=== PATIENT | male | born 1935 | race Caucasian/White ===

== ENCOUNTER 2022-03-03 19:21 | Emergency (ER) | payer OTHER ==
[2022-03-03] MEDS ORDERED: LIDOCAINE VISCOUS 2% SOLN 15 ML UDC ONE (21:10)
--- NOTE | 2022-03-03 21:29 | ER ---
Nurse's Notes [facility] Name: Hugo Medley Age: 86 yrs Sex: Male : 1935 Arrival Date: 03/03/2022 Time: 19:24 Bed 7 Private MD: Diagnosis: Encounter for fitting and adjustment of non-vascular catheter-replacement of suprapubic catheter Presentation: 03/03 20:11 Chief complaint: Patient states: States I cant void, states it has been going on since ll3 supper time, states pain is 10/10. Coronavirus screen: At this time, the client does not indicate any symptoms associated with coronavirus-19. Ebola Screen: No symptoms or risks identified at this time. Initial Sepsis Screen: Does the patient meet any 2 criteria? No. Patient's initial sepsis screen is negative. Does the patient have a suspected source of infection? No. Patient's initial sepsis screen is negative. Risk Assessment: Do you want to hurt yourself or someone else? Patient reports no desire to harm self or others. Onset of symptoms was March 03, 2022 at 18:00. 20:11 Method Of Arrival: Wheelchair ll3 20:11 Acuity: MAIK 3 ll3 Triage Assessment: 20:14 General: Appears uncomfortable, Behavior is calm, cooperative. Pain: Complains of pain ll3 in pelvis. Neuro: Level of Consciousness is awake, alert, obeys commands, Oriented to person, place, time, situation. : suprapubic catheter in place Reports inability to void. Derm: Skin is pink, warm \T\ dry. Historical: - Allergies: 20:14 PENICILLINS; ll3 20:14 Hydrocodone-Acetaminophen; ll3 - PMHx: 20:14 Diabetes mellitus; Hypercholesterolemia; Depressive disorder; Hypertensive disorder; ll3 GERD; Osteoporosis; Kidney disease; - Immunization history:: Client reports receiving the 2nd dose of the Covid vaccine, Flu vaccine is up to date. - Social history:: Smoking status: Patient denies any tobacco usage or history of. Screenin:42 Abuse screen: Denies threats or abuse. Denies injuries from another. Nutritional lp1 screening: No deficits noted. Tuberculosis screening: No symptoms or risk factors identified. Fall Risk None identified. Assessment: 20:30 General: Appears uncomfortable, Behavior is appropriate for age. Pain: Complains of lp1 pain in suprapubic area Pain currently is 7 out of 10 on a pain scale. Quality of pain is described as pressure, Pain began 1800. Neuro: Level of Consciousness is awake, alert, obeys commands, Oriented to person, place, time, situation. Cardiovascular: Patient's skin is warm and dry. Respiratory: Respiratory effort is even. GI: Abdomen is non-distended. : suprapubic catheter in place does not appear to be draining. EENT: No signs and/or symptoms were reported regarding the EENT system. Derm: Skin is intact, Skin is dry, Skin is normal. Musculoskeletal: No signs and/or symptoms reported regarding the musculoskeletal system. 20:45 Reassessment: Bladder scan 150ml; Provider notified. lp1 21:05 Reassessment: Provider notified unable to flush suprapubic catheter; occlusion lp1 continued. 21:41 Reassessment: New ayala bag attached after catheter insertion; Patient reports lp1 significant abdominal relief after insertion of catheter by Provider, urine actively draining. Vital Signs: 20:11 BP 143 / 94; Pulse 68; Resp 18; Temp 97.2(TE); Pulse Ox 99% on R/A; Weight 83.91 kg ll3 (R); Height 5 ft. 7 in. (170.18 cm) (R); Pain 10/10; 20:11 Body Mass Index 28.97 (83.91 kg, 170.18 cm) ll3 ED Course: 19:24 Patient arrived in ED. bp1 20:14 Triage completed. ll3 20:14 Arm band placed on right wrist. ll3 20:20 [facility] cp 20:20 Ned Harden MD is Attending Physician. cp 20:45 Patient has correct armband on for positive identification. lp1 21:30 Assisted YANN Hess with insertion of 16FR suprapubic catheter. lp1 21:41 Patient did not have IV access during this emergency room visit. lp1 Administered Medications: No medications were administered Output: 21:42 Urine: 200ml (Ayala); Total: 200ml. lp1 Outcome: 21:28 Discharge ordered by . cp 21:41 Discharged to home via wheelchair, with family. lp1 21:41 Condition: good 21:41 Discharge instructions given to patient, family, Instructed on discharge instructions, follow up and referral plans. Demonstrated understanding of instructions, follow-up care. 21:42 Patient left the ED. lp1 Signatures: Fozia Javier RN RN lp1 Rogerio Moss PA PA cp Paniauga, Brittany bp1 Loubet, Lynsea, RN RN ll3 Corrections: (The following items were deleted from the chart) 03/04 06:09 03/03 21:05 Reassessment: Provider notified unable to flush suprapubic catheter lp1 lp1 03/04 06:24 03/03 21:41 Reassessment: New ayala bag attached after catheter insertion lp1 lp1
--- NOTE | 2022-03-03 21:29 | EDPHYS ---
Physician Documentation [facility] Name: Hugo Medley Age: 86 yrs Sex: Male : 1935 Arrival Date: 03/03/2022 Time: 19:24 Bed 7 Private MD: ED Physician Ned Harden HPI: 03/03 20:27 This 86 yrs old Male presents to ER via Wheelchair with complaints of Urine Retention. cp 20:27 Onset: The symptoms/episode began/occurred today. cp 20:27 Patient with suprapubic catheter. Reports catheter not draining and now having lower cp abdomen pain. 20:27 Associated signs and symptoms: Pertinent negatives: constipation, diarrhea, fever, cp hematuria, vomiting. Historical: - Allergies: 20:14 PENICILLINS; ll3 20:14 Hydrocodone-Acetaminophen; ll3 - PMHx: 20:14 Diabetes mellitus; Hypercholesterolemia; Depressive disorder; Hypertensive disorder; ll3 GERD; Osteoporosis; Kidney disease; - Immunization history:: Client reports receiving the 2nd dose of the Covid vaccine, Flu vaccine is up to date. - Social history:: Smoking status: Patient denies any tobacco usage or history of. ROS: 20:30 Constitutional: Negative for body aches, chills, fever. cp 20:30 Respiratory: Negative for cough, shortness of breath, wheezing. 20:30 Abdomen/GI: Positive for abdominal pain. 20:30 : Positive for urine retention. 20:30 All other systems are negative. cp Exam: 20:33 Constitutional: The patient appears in no acute distress, alert, awake, cp non-diaphoretic, non-toxic, well developed, well nourished, uncomfortable. 20:33 Head/Face: Normocephalic, atraumatic. cp 20:33 Cardiovascular: Rate: normal. 20:33 Respiratory: the patient does not display signs of respiratory distress, Respirations: normal, no use of accessory muscles, no retractions. 20:33 Abdomen/GI: Inspection: suprapubic catheter in place, Bowel sounds: active, all quadrants, Palpation: soft, in all quadrants, moderate abdominal tenderness, in the suprapubic area, rebound tenderness, is not appreciated, voluntary guarding, is elicited in the suprapubic area. 20:33 Skin: area around suprapubic catheter appears with signs of cellulitis. 20:33 Neuro: Orientation: to person, place \T\ time. Mentation: is normal. Vital Signs: 20:11 BP 143 / 94; Pulse 68; Resp 18; Temp 97.2(TE); Pulse Ox 99% on R/A; Weight 83.91 kg ll3 (R); Height 5 ft. 7 in. (170.18 cm) (R); Pain 10/10; 20:11 Body Mass Index 28.97 (83.91 kg, 170.18 cm) ll3 Procedures: 21:25 replacement of suprapubic catheter using 16 indonesian performed. cp MDM: 20:27 Patient medically screened. cp 21:00 Differential diagnosis: nonspecific abdominal pain, UTI, urinary retention, Armenta cp catheter problem. 21:24 Data reviewed: vital signs, nurses notes, and as a result, I will discharge patient. cp 03/03 20:29 Order name: Bladder Scanner; Complete Time: 21:41 cp Administered Medications: No medications were administered Disposition: 03/04 01:21 Co-signature as Attending Physician, Ned Harden MD. [email or web address] Disposition Summary: 03/03/22 21:28 Discharge Ordered Location: Home cp Problem: new cp Symptoms: are resolved cp Condition: Stable cp Diagnosis - Encounter for fitting and adjustment of non-vascular catheter - replacement of cp suprapubic catheter Followup: cp - With: Emergency Department - When: As needed - Reason: Worsening of condition Discharge Instructions: - Discharge Summary Sheet cp - Suprapubic Catheter Replacement cp - Suprapubic Catheter Home Guide cp Forms: - Medication Reconciliation Form cp - Thank You Letter cp - Antibiotic Education cp - Prescription Opioid Use cp Signatures: Rogerio Moss PA PA cp Holmes, Maurice, MD MD [id number] Gifty Hoang RN RN ll3 Corrections: (The following items were deleted from the chart) 03/03 21:24 20:45 : Positive for urine retention, cp cp :24 20:45 Constitutional: Negative for body aches, chills, fever, cp cp :24 20:45 Respiratory: Negative for cough, shortness of breath, wheezing, cp cp :24 20:45 Abdomen/GI: Positive for abdominal pain, cp cp :24 20:45 All other systems are negative, cp cp 03/04 15:23 15:22 replacement of suprapubic catheter using 16 indonesian performed. cp cp
[2022-03-04 05:59] VITALS: BP 143/94; TEMP 97.2; O2SAT 99
== END 2022-03-03 21:42 | disposition home or self-care (01) ==
LOC: ER 19:21
PROC: 0T29X0Z Change Drainage Device in Ureter, External Approach (ICD-10-PCS; principal; 2022-03-03)
DX: Z46.82 Encounter for fitting and adjustment of non-vascular catheter (principal); R10.30 Lower abdominal pain, unspecified; E11.22 Type 2 diabetes mellitus with diabetic chronic kidney disease; N18.9 Chronic kidney disease, unspecified; I10 Essential (primary) hypertension; Z88.0 Allergy status to penicillin; Z88.5 Allergy status to narcotic agent
CPT/HCPCS: 99281

== ENCOUNTER 2022-04-15 19:46 | Emergency (ER) | payer OTHER ==
--- NOTE | 2022-04-15 21:53 | ER ---
Nurse's Notes [facility] Name: Hugo Medley Age: 86 yrs Sex: Male : 1935 Arrival Date: 04/15/2022 Time: 19:47 Bed 11 Private MD: Diagnosis: Other mechanical complication of urinary (indwelling) catheter;Mechanical complication of urinary (indwelling) catheter Presentation: 04/15 20:08 Chief complaint: Patient's son or daughter states: "He has a suprapubic catheter and it as6 was clogged a few weeks ago and we thinks its happened again". Coronavirus screen: At this time, the client does not indicate any symptoms associated with coronavirus-19. Ebola Screen: No symptoms or risks identified at this time. Initial Sepsis Screen: Does the patient meet any 2 criteria? No. Patient's initial sepsis screen is negative. Does the patient have a suspected source of infection? No. Patient's initial sepsis screen is negative. Risk Assessment: Do you want to hurt yourself or someone else? Patient reports no desire to harm self or others. Onset of symptoms was April 15, 2022 at 18:00. 20:08 Method Of Arrival: Wheelchair as6 20:08 Acuity: MAIK 3 as6 Triage Assessment: 20:12 General: Appears in no apparent distress. Behavior is calm, cooperative. Pain: as6 Complains of pain in abdomen Quality of pain is described as pressure. : suprapubic catheter in place. Historical: - Allergies: 20:11 Hydrocodone-Acetaminophen; as6 20:11 PENICILLINS; as6 - PMHx: 20:11 depressive disorder; diabetes mellitus; GERD; Hypercholesterolemia; Hypertensive as6 disorder; kidney disease; Osteoporosis; - Immunization history:: Adult Immunizations up to date. - Social history:: Smoking status: Patient denies any tobacco usage or history of. Screenin:45 Abuse screen: Denies threats or abuse. Nutritional screening: No deficits noted. jb4 Tuberculosis screening: No symptoms or risk factors identified. Fall Risk None identified. Assessment: 20:30 General: Appears in no apparent distress. uncomfortable, Behavior is calm, cooperative, jb4 appropriate for age. Pain: Complains of pain in suprapubic area Pain does not radiate. Pain currently is 6 out of 10 on a pain scale. Neuro: Level of Consciousness is awake, alert, obeys commands, Oriented to person, place, time, situation. Cardiovascular: Patient's skin is warm and dry. Respiratory: Airway is patent Respiratory effort is even, unlabored, Respiratory pattern is regular, symmetrical. GI: No signs and/or symptoms were reported involving the gastrointestinal system. : Armenta in place Not currently draining. EENT: No signs and/or symptoms were reported regarding the EENT system. Derm: Skin is intact, Skin is pink, warm \\T\\ dry. 21:45 Reassessment: Patient appears in no apparent distress at this time. Patient and/or jb4 family updated on plan of care and expected duration. Pain level reassessed. Patient is alert, oriented x 3, equal unlabored respirations, skin warm/dry/pink. Armenta irrigated, urine return noted. Pt had approximately 700ml output. Reports immediate relief, denies further pain. Vital Signs: 20:08 BP 171 / 75; Pulse 88; Resp 18 S; Temp 98.0(O); Pulse Ox 99% on R/A; Weight 86.18 kg as6 (R); Height 5 ft. 6 in. (167.64 cm) (R); Pain 6/10; 21:45 BP 171 / 63; Pulse 76; Resp 16; Pulse Ox 98% on R/A; jb4 20:08 Body Mass Index 30.67 (86.18 kg, 167.64 cm) as6 ED Course: 19:47 Patient arrived in ED. bp1 20:11 Triage completed. as6 20:12 Arm band placed on. as6 20:24 Kenneth Preciado MD is Attending Physician. kdr 21:07 Bubba Collazo, RN is Primary Nurse. jb4 21:45 Patient has correct armband on for positive identification. Bed in low position. Call jb4 light in reach. Side rails up X 1. Client placed on continuous cardiac and pulse oximetry monitoring. NIBP monitoring applied. 21:45 No provider procedures requiring assistance completed. Patient did not have IV access jb4 during this emergency room visit. Administered Medications: No medications were administered Medication: 21:45 VIS not applicable for this client. jb4 Outcome: 21:53 Discharge ordered by . kdr 22:00 Discharged to home via wheelchair, with family. jb4 22:00 Condition: stable 22:00 Discharge instructions given to patient, family, Instructed on discharge instructions, follow up and referral plans. Demonstrated understanding of instructions, follow-up care. 22:06 Patient left the ED. jb4 Signatures: Kenneth Preciado MD MD kdr Bryson, James RN RN jb4 Dione Quiroga Ashby, RN RN as6
--- NOTE | 2022-04-15 21:53 | EDPHYS ---
Physician Documentation [facility] Name: Hugo Medley Age: 86 yrs Sex: Male : 1935 Arrival Date: 04/15/2022 Time: 19:47 Bed 11 Private MD: ED Physician Kenneth Preciado HPI: 04/15 21:54 This 86 yrs old Male presents to ER via Wheelchair with complaints of Problem With kdr Urinary Catheter, - Clogged. 21:54 The patient presents with a Ayala catheter problem, is not draining. Onset: The kdr symptoms/episode began/occurred today. Modifying factors: The symptoms are alleviated by nothing, the symptoms are aggravated by nothing. Associated signs and symptoms: Pertinent positives: abdominal pain, Pertinent negatives: constipation, diarrhea, dysuria, fever, hematuria, nausea, vomiting. Severity of symptoms: At their worst the symptoms were mild, in the emergency department the symptoms are unchanged. The patient has not experienced similar symptoms in the past. The patient has not recently seen a physician. Historical: - Allergies: 20:11 Hydrocodone-Acetaminophen; as6 20:11 PENICILLINS; as6 - PMHx: 20:11 depressive disorder; diabetes mellitus; GERD; Hypercholesterolemia; Hypertensive as6 disorder; kidney disease; Osteoporosis; - Immunization history:: Adult Immunizations up to date. - Social history:: Smoking status: Patient denies any tobacco usage or history of. ROS: 21:54 Constitutional: Negative for fever, chills, and weight loss, Eyes: Negative for injury, kdr pain, redness, and discharge, ENT: Negative for injury, pain, and discharge, Neck: Negative for injury, pain, and swelling, Cardiovascular: Negative for chest pain, palpitations, and edema, Respiratory: Negative for shortness of breath, cough, wheezing, and pleuritic chest pain, Back: Negative for injury and pain, MS/Extremity: Negative for injury and deformity, Skin: Negative for injury, rash, and discoloration, Neuro: Negative for headache, weakness, numbness, tingling, and seizure activity. Psych: Negative for depression, anxiety, suicide ideation, homicidal ideation, and hallucinations, Allergy/Immunology: Negative for hives, rash, and allergies, Endocrine: Negative for neck swelling, polydipsia, polyuria, polyphagia, and marked weight changes, Hematologic/Lymphatic: Negative for swollen nodes, abnormal bleeding, and unusual bruising. 21:54 Abdomen/GI: Positive for Fullness in lower abdomen. 21:54 : Positive for Ayala not draining. Exam: 21:54 Constitutional: This is a well developed, well nourished patient who is awake, alert, kdr and in no acute distress. Head/Face: Normocephalic, atraumatic. Abdomen/GI: Soft, non-tender, with normal bowel sounds. No distension or tympany. No guarding or rebound. No evidence of tenderness throughout. Skin: Warm, dry with normal turgor. Normal color with no rashes, no lesions, and no evidence of cellulitis. 21:54 : Indwelling suprapubic cath in place but not draining. Vital Signs: 20:08 BP 171 / 75; Pulse 88; Resp 18 S; Temp 98.0(O); Pulse Ox 99% on R/A; Weight 86.18 kg as6 (R); Height 5 ft. 6 in. (167.64 cm) (R); Pain 6/10; 21:45 BP 171 / 63; Pulse 76; Resp 16; Pulse Ox 98% on R/A; jb4 20:08 Body Mass Index 30.67 (86.18 kg, 167.64 cm) as6 MDM: 21:53 Patient medically screened. kdr 21:54 Data reviewed: vital signs, nurses notes. Counseling: I had a detailed discussion with kdr the patient and/or guardian regarding: the historical points, exam findings, and any diagnostic results supporting the discharge/admit diagnosis, the need for outpatient follow up. ED course: With the nurse evaluated and irrigated the Ayala, it began to drain and the patient had instant relief. He was happy with the care provided the plan for discharge and follow-up. No further intervention was needed.. 04/15 21:07 [facility]: Irrigate ayala. If unable to irrigate and get flow then kdr replace; Complete Time: 21:48 Administered Medications: No medications were administered Disposition Summary: 04/15/22 21:53 Discharge Ordered Location: Home kdr Problem: new kdr Symptoms: have improved kdr Condition: Stable kdr Diagnosis - Other mechanical complication of urinary (indwelling) catheter kdr - Mechanical complication of urinary (indwelling) catheter kdr Followup: kdr - With: Private Physician - When: 2 - 3 days - Reason: If symptoms return, Further diagnostic work-up, Recheck today's complaints, Continuance of care, Re-evaluation by your physician Discharge Instructions: - Discharge Summary Sheet kdr - Indwelling Urinary Catheter Care, Adult, [id number] kdr Forms: - Medication Reconciliation Form kdr - Thank You Letter kdr Signatures: Kenneth Preciado MD MD kdr Lokesh Walters RN RN as6
[2022-04-15 22:37] VITALS: TEMP 98
[2022-04-15 22:38] VITALS: BP 171/63; O2SAT 98
== END 2022-04-15 22:06 | disposition home or self-care (01) ==
LOC: ER 19:46
DX: T83.098A Other mechanical complication of other urinary catheter, initial encounter (principal)
CPT/HCPCS: 99281

== ENCOUNTER 2022-06-30 05:44 | Day surgery (SDC) | payer OTHER ==
[2022-06-30 06:24] LABS: Absolute Lymphocytes (CBC) 1.4 K/uL (0.7-4.9); Hematocrit 33.3 % (39.6-49.0); Lymphocytes % 28.2 % (15.3-44.8); MCV 89.2 fL (80-100); MPV 7.7 fL (7.6-11.3); RBC Red Blood Cell Count 3.73 M/uL (4.33-5.43)
[2022-06-30 06:39] LABS: SARS-CoV-2 Antigen Rapid Res Negative (Negative)
[2022-06-30] MEDS ORDERED: CEFAZOLIN 2 GM IN 0.9% NACL 2 GM/100 ML BAG ONE (06:45)
[2022-06-30] MEDS: NA CHLORIDE 0.9% 1,000 ML ONE (06:45)
[2022-06-30] MEDS ORDERED: dexAMETHasone 10 MG/ML VIAL ONE (06:59)
[2022-06-30] MEDS ORDERED: propofoL 200 MG/20 ML VIAL IV ONE (06:59)
[2022-06-30] MEDS ORDERED: ROCURONIUM 50 MG/5 ML VIAL IV ONE (06:59)
[2022-06-30] MEDS ORDERED: FENTANYL CITR 100 MCG/2 ML ONE ×2 (06:59→08:52)
[2022-06-30] MEDS ORDERED: LIDOCAINE 2% MPF 5 ML VIAL ONE (06:59)
[2022-06-30] MEDS ORDERED: ACETAMINOPHEN 500 MG TAB ONE (07:17)
[2022-06-30] MEDS ORDERED: THROMBIN 5000 UNITS/VIAL TOP ONE (07:19)
[2022-06-30] MEDS ORDERED: NS 0.9% VIAL 20 ML ONE (07:33)
[2022-06-30] MEDS ORDERED: KETAMINE HCL 500 MG/5 ML VIAL ONE (07:33)
[2022-06-30] MEDS ORDERED: EPHEDRINE SULF 50 MG/ML VIAL ONE (08:25)
[2022-06-30] MEDS ORDERED: Phenylephrine HCl 10 MG/ML 1 ML VIAL ONE (08:57)
[2022-06-30] MEDS ORDERED: NA CHLORIDE 0.9% 1,000 ML ONE (09:53)
[2022-06-30] MEDS ORDERED: ONDANSETRON 4 MG/2 ML VIAL IV PRN (10:12)
[2022-06-30] MEDS ORDERED: HYDROCODONE/APAP 10/325 TAB PO PRN ×2 (10:18)
[2022-06-30] MEDS ORDERED: MORPHINE 4 MG/ML SYR IV PRN (10:19)
[2022-06-30 11:31] VITALS: O2SAT 98
[2022-06-30 11:58] VITALS: BMI 31.3
--- NOTE | 2022-06-30 12:04 | RAD REPORT ---
EXAM DESCRIPTION: RAD - Fluoroscopy <1 Hour - 06/30/2022 11:57 am FINDINGS: There were 3 portable C-arm views submitted during fluoroscopic assisted lumbar surgical p rocedure. No suspicious or unexpected finding. Fluoro time was less than 0.1 minutes. Cumulative dose was 1.83 mGy.
--- NOTE | 2022-06-30 13:43 | EKG ---
Test Date: 2022-06-30 Test Time: 06:29:01 Maintenance And Engineering Manager: [place] MEASUREMENT RESULTS: Intervals: Rate: 67 TX: 242 QRSD: 114 QT: 450 QTc: 475 [place]: P: 32 TX: 242 QRS: 21 T: 62 INTERPRETIVE STATEMENTS: Sinus rhythm with 1st degree AV block Otherwise normal ECG No previous ECG available for comparison Electronically Signed On 06-30-22 13:42:41 CDT by Heber Miller
[2022-06-30] MEDS: GABAPENTIN 300 MG CAP PO SCH ×2 (14:13→20:34)
[2022-06-30] MEDS: CEFAZOLIN 1 GM in NA CHLORIDE 0.9% 50 ML IVPB SCH (16:19)
[2022-06-30] MEDS ORDERED: GLUCAGON 1 MG/VIAL IM PRN (16:23)
[2022-06-30] MEDS ORDERED: D10W 250 ML BAG IV PRN (16:28)
[2022-06-30] MEDS: INSULIN -REGULAR HUMAN 50 UNIT/0.5 ML ML SQ SCH ×2 (16:48→20:36)
[2022-06-30] MEDS: DOCUSATE NA 100 MG CAP PO SCH (20:34)
[2022-06-30] MEDS: METHENAMINE HIPPURATE PO SCH (20:36)
[2022-06-30] MEDS ORDERED: ATORVASTATIN 20 MG TAB PO SCH (21:00)
[2022-06-30] MEDS ORDERED: LOPERAMIDE HCL 2 MG CAPSULE PO PRN (22:24)
--- NOTE | 2022-06-30 22:25 | P.HP ---
Certification for Inpatient Patient admitted to: Observation With expected LOS: <2 Midnights Practitioner: I am a practitioner with admitting privileges, knowledge of patient current condition, hospital course, and medical plan of care. Services: Services provided to patient in accordance with Admission requirements found in Title 42 Section 412.3 of the Code of Federal Regulations Patient History Date of Service: 06/30/22 Reason for admission: s/p L2-L3 decompression History of Present Illness: 86yo M, PMH: NIDDM2, GERD, HTN, CKD (unknown stage), chronic diarrhea, urinary retention s/p suprapubic catheter Patient with lumbar compression leading to significant pain not allowing him to walk much. He underwent L2-L3 decompression with Dr. Walden today, without any complications. Patient feels well, ambulated with PT already, and his excited he was able to walk several feet and didn't hurt him to walk at all. He feels well, denies chest pain, no SOB, no abdominal pain, no new numbness/tingling. Reports several year history of fast transit stooling. Shortly after he eats he has to have a bowel movement. He has reportedly seen a physician regarding this in the past. He has treated himself with intermittent imodium as needed. Labs notable for elevated Cr, unknown baseline, mild anemia. Allergies Penicillins Allergy (Verified 06/30/22 10:56) Hives Home Medications: Alendronate Sodium 1 tab PO 1X 06/30/22 Amino AC/Whey Prot Conc, Isol [Whey Protein Powder] 1 packet PO DAILY 06/30/22 Atorvastatin Calcium [Lipitor*] 1 tab PO DAILY 06/30/22 Citalopram [Celexa*] 1 tab PO DAILY 06/30/22 Diphenoxylate HCl/Atropine [Diphenoxylate-Atrop 2.5-0.025] 2 tab PO BID 06/30/22 Gabapentin 1 tab PO TID 06/30/22 Methenamine Hippurate 1 tab PO BID 06/30/22 Metoprolol Succinate [Toprol Xl*] 1 tab PO DAILY 06/30/22 Omeprazole 1 tab PO DAILY 06/30/22 Ondansetron [Zofran (Odt)*] 1 tab PO QID PRN 06/30/22 Tramadol HCl [Ultram] 1 tab PO Q4HR PRN 06/30/22 Zinc Oxide [Zinc Oxide 20%*] 1 tube TOP DAILY 06/30/22 - Past Medical/Surgical History Has patient received pneumonia vaccine in the past: Yes -: NIDDM2 -: HTN -: GERD -: chronic diarrhea -: urinary retention, s/p suprapubic catheter -: suprapubic catheter -: knee surgery - Family History Family History: Reviewed- Non-Contributory - Social History Smoking Status: Never smoker Alcohol use: No CD- Drugs: No Caffeine use: Yes Place of Residence: Home (assisted living) Review of Systems 10-point ROS is otherwise unremarkable Physical Examination - Vital Signs Temperature: 97.3 F Blood Pressure: 117/62 Pulse: 100 Respirations: 18 Pulse Ox (%): 97 - Physical Exam General: Alert, In no apparent distress, Oriented x3 HEENT: EOMI, Sclerae nonicteric Respiratory: Clear to auscultation bilaterally, Normal air movement Cardiovascular: No edema, Regular rate/rhythm Capillary refill: <2 Seconds Gastrointestinal: Soft and benign, Non-distended, No tenderness Musculoskeletal: No contractures, No erythema Integumentary: No rashes, No significant lesion Neurological: Normal speech, Normal strength at 5/5 x4 extr, Normal affect Urinary: Suprapubic catheter - Studies Laboratory Data (last 24 hrs) 06/30/22 06:14: Sodium 141, Potassium 4.0, BUN 30 H, Creatinine 1.40 H, Glucose 133 H 06/30/22 06:14: WBC 4.8, Hgb 11.4 L, Hct 33.3 L, Plt Count 195 Assessment and Plan - Advance Directives Does patient have a Living Will: No Does patient have a Durable POA for Healthcare: No Physician Review Additional Text: Problem List lumbar compression s/p L2-L3 decompression NIDDM2 GERD HTN CKD (unknown stage) chronic diarrhea urinary retention s/p suprapubic catheter resume home meds pain meds as needed PT consulted patient ambulated in hallway, without pain patient and son prefer to go back to [facility] with home health/PT/OT tolerating PO accucheks, insulin sliding scale suprapubic cath is chronic Code: full Dispo: back to [facility], home health/PT/OT - social science professor consulted Time Spent Managing Pts Care (In Minutes): 65
[2022-07-01] MEDS: CEFAZOLIN 1 GM in NA CHLORIDE 0.9% 50 ML IVPB SCH (00:45)
[2022-07-01 03:53] LABS: Hematocrit 29.2 % (39.6-49.0); MCV 88.3 fL (80-100); RBC Red Blood Cell Count 3.31 M/uL (4.33-5.43)
[2022-07-01 04:05] LABS: Magnesium 2.3 mg/dL (1.8-2.4); Potassium 4.1 mmol/L (3.5-5.1)
[2022-07-01] MEDS ORDERED: PANTOPRAZOLE 40MG TABLET PO SCH (06:30)
[2022-07-01] MEDS: INSULIN -REGULAR HUMAN 50 UNIT/0.5 ML ML SQ SCH ×2 (07:30→11:30)
[2022-07-01 07:54] VITALS: BP 104/53; TEMP 97.7
[2022-07-01] MEDS: METHENAMINE HIPPURATE PO SCH (09:00)
[2022-07-01] MEDS ORDERED: CITALOPRAM 10 MG TABLET PO SCH (09:00)
[2022-07-01] MEDS ORDERED: METOPROLOL XL 50 MG TAB PO SCH (09:00)
[2022-07-01] MEDS: DOCUSATE NA 100 MG CAP PO SCH (09:46)
[2022-07-01] MEDS: GABAPENTIN 300 MG CAP PO SCH (09:46)
--- NOTE | 2022-07-01 10:59 | P.DS ---
Discharge Date: 07/01/22 Disposition: IN HOME/HOME HEALTH CARE Discharge Condition: FAIR Reason for Admission: s/p L2-L3 decompression Brief History of Present Illness: 86yo M, PMH: NIDDM2, GERD, HTN, CKD (unknown stage), chronic diarrhea, urinary retention s/p suprapubic catheter Patient with lumbar compression leading to significant pain not allowing him to walk much. He underwent L2-L3 decompression with Dr. Walden today, without any complications. Patient feels well, ambulated with PT already, and his excited he was able to walk several feet and didn't hurt him to walk at all. He feels well, denies chest pain, no SOB, no abdominal pain, no new numbness/tingling. Reports several year history of fast transit stooling. Shortly after he eats he has to have a bowel movement. He has reportedly seen a physician regarding this in the past. He has treated himself with intermittent imodium as needed. Labs notable for elevated Cr, unknown baseline, mild anemia. Hospital Course: Diagnosis lumbar compression s/p L2-L3 decompression NIDDM2 GERD HTN CKD (unknown stage) chronic diarrhea urinary retention s/p suprapubic catheter Patient admitted to the medical floor for monitoring. resumed home meds pain meds as needed Patient seen by PT. He ambulated in hallway, without pain patient and son prefer to go back to [facility] with home health/PT/OT Patient is eating well. Patient with poor functional status at baseline and uses wheelchair frequently. PT recommend using a walker only during PT. Patient has a chronic suprapubic cath. Clinically stable for discharge. He is prescribed low-dose Lasix for lower extremity edema according to his request. Vital Signs/Physical Exam: Temp Pulse Resp BP Pulse Ox 97.7 F 90 18 104/53 L 97 07/01/22 07:54 07/01/22 09:46 07/01/22 07:54 07/01/22 09:46 07/01/22 07:54 General: Alert, In no apparent distress, Oriented x3 HEENT: Mucous membr. moist/pink Neck: Supple, JVD not distended Respiratory: Clear to auscultation bilaterally, Normal air movement Cardiovascular: Regular rate/rhythm, Normal S1 S2, Edema (1+ bilateral pedal edema) Gastrointestinal: Normal bowel sounds, Soft and benign, Non-distended, No tenderness Musculoskeletal: No tenderness Integumentary: No rashes Neurological: Other (No focal motor deficit) Laboratory Data at Discharge: WBC 9.2 K/uL (4.3-10.9) D 07/01/22 03:21 Hgb 10.1 g/dL (13.6-17.9) L 07/01/22 03:21 Hct 29.2 % (39.6-49.0) L 07/01/22 03:21 Plt Count 188 K/uL (152-406) 07/01/22 03:21 Sodium 139 mmol/L (136-145) 07/01/22 03:21 Potassium 4.1 mmol/L (3.5-5.1) 07/01/22 03:21 BUN 34 mg/dL (7-18) H 07/01/22 03:21 Creatinine 1.45 mg/dL (0.55-1.3) H 07/01/22 03:21 Glucose 147 mg/dL (74-106) H 07/01/22 03:21 Magnesium 2.3 mg/dL (1.8-2.4) 07/01/22 03:21 Home Medications: Alendronate Sodium 1 tab PO 1X 06/30/22 Amino AC/Whey Prot Conc, Isol [Whey Protein Powder] 1 packet PO DAILY 06/30/22 Atorvastatin Calcium [Lipitor*] 1 tab PO DAILY 06/30/22 Citalopram [Celexa*] 1 tab PO DAILY 06/30/22 Diphenoxylate HCl/Atropine [Diphenoxylate-Atrop 2.5-0.025] 2 tab PO BID 06/30/22 Gabapentin 1 tab PO TID 06/30/22 Methenamine Hippurate 1 tab PO BID 06/30/22 Metoprolol Succinate [Toprol Xl*] 1 tab PO DAILY 06/30/22 Omeprazole 1 tab PO DAILY 06/30/22 Ondansetron [Zofran (Odt)*] 1 tab PO QID PRN 06/30/22 Zinc Oxide [Zinc Oxide 20%*] 1 tube TOP DAILY 06/30/22 Docusate [Colace Cap*] 100 mg PO BID #60 cap 07/01/22 Furosemide [Lasix] 20 mg PO DAILY #30 tab 07/01/22 Hydrocodone 10/APAP 325 [Mcbrides 10/325*] 1 tab PO Q4H PRN #15 tab 07/01/22 New Medications: Docusate [Colace Cap*] 100 mg PO BID #60 cap Furosemide [Lasix] 20 mg PO DAILY #30 tab Hydrocodone 10/APAP 325 [Mcbrides 10/325*] 1 tab PO Q4H PRN #15 tab PRN Reason: Pain Scale 5-7 (Moderate) Diet: AHA Activity: Fall precautions Followup: Kendall Walden MD [ACTIVE - CAN ADMIT] - Time spent managing pt's care (in minutes): 33
== END 2022-07-01 12:58 | disposition home health service (06) ==
LOC: PRE 05:44 → SUATTDRO 05:44 → 4TH 11:35 → OR 07-01 12:58
PROVIDERS: ATTEND Internal Medicine
PROC: 01NB0ZZ Release Lumbar Nerve, Open Approach (ICD-10-PCS; principal; 2022-06-30 07:30)
DX: M43.16 Spondylolisthesis, lumbar region (principal); E11.9 Type 2 diabetes mellitus without complications; I10 Essential (primary) hypertension; N18.9 Chronic kidney disease, unspecified; K52.9 Noninfective gastroenteritis and colitis, unspecified; R33.9 Retention of urine, unspecified; Z88.0 Allergy status to penicillin; Z20.822 Contact with and (suspected) exposure to COVID-19
CPT/HCPCS: 63047; 63048; 93005; 85025; 80048 ×2; 36415 ×2; 83735; 82947 ×5; 85027; 97110; 97116 ×2; 97161; 97530 ×3; 97542 ×2; 87811; 69990; J2704; J2370; J1815; J3010 ×2; J1100; J0690 ×3; J7030 ×2; 76000; A4216; J2001

== ENCOUNTER 2022-08-06 11:32 | Emergency (ER) | payer OTHER ==
[2022-08-06] MEDS ORDERED: NA CHLORIDE 0.9% 1,000 ML ONE (12:09)
[2022-08-06 12:14] LABS: Absolute Lymphocytes (CBC) 0.6 K/uL (0.7-4.9); Hematocrit 31.5 % (39.6-49.0); MCV 89.5 fL (80-100); MPV 7.8 fL (7.6-11.3); RBC Red Blood Cell Count 3.51 M/uL (4.33-5.43)
[2022-08-06 12:29] LABS: Potassium 3.9 mmol/L (3.5-5.1)
[2022-08-06 12:40] LABS: Blood Morphology Comment NOT SEEN (NOT SEEN); Platelet Estimate ADEQ
--- NOTE | 2022-08-06 12:48 | RAD REPORT ---
EXAM DESCRIPTION: RAD - Chest Single View - 08/06/2022 12:37 pm CLINICAL HISTORY: COVID COMPARISON: Fluoroscopy <1 Hour dated 06/30/2022 FINDINGS: Lines: None. Lungs: No evidence of edema or pneumonia. Pleural: No significant pleural effusions or pneumothorax. Cardiac: Cardiomegaly. Mediastinum: Widened mediastinum that may be secondary to underlying aortic aneurysm or ectasia. This may also be accentuated from the patient's rotation. . Bones: No acute fractures. Other: None IMPRESSION: No acute cardiopulmonary disease. Possible aortic aneurysm.
[2022-08-06] MEDS ORDERED: BEBTELOVIMAB 175 MG/2 ML VIAL IV ONE (14:38)
--- NOTE | 2022-08-06 15:08 | ER ---
Nurse's Notes [facility] Name: Hugo Medley Age: 87 yrs Sex: Male : 1935 Arrival Date: 08/06/2022 Time: 11:36 Bed 24 Private MD: Diagnosis: SARS-associated coronavirus as the cause of diseases classified elsewhere;Diarrhea, unspecified;Dehydration Presentation: 08/06 11:37 Chief complaint: EMS states: Pt tested positive for covid yesterday at [facility], ph c/o generalized weakness, low grade fever 99.1, other VSS. Coronavirus screen: Vaccine status: Patient reports receiving the 2nd dose of the covid vaccine. Ebola Screen: No symptoms or risks identified at this time. Initial Sepsis Screen: Does the patient meet any 2 criteria? No. Patient's initial sepsis screen is negative. Does the patient have a suspected source of infection? No. Patient's initial sepsis screen is negative. Risk Assessment: Do you want to hurt yourself or someone else? Patient reports no desire to harm self or others. Onset of symptoms was August 06, 2022. 11:37 Method Of Arrival: EMS: [facility] ph 11:37 Acuity: MAIK 3 ph Triage Assessment: 11:40 General: Appears in no apparent distress. Behavior is calm, cooperative, appropriate ph for age. Pain: Denies pain. Neuro: Level of Consciousness is awake, alert, obeys commands, Oriented to person, place, time, situation, Reports weakness in legs. Cardiovascular: Capillary refill < 3 seconds in bilateral fingers Patient's skin is warm and dry. Respiratory: Airway is patent Respiratory effort is even, unlabored, Denies cough, shortness of breath. GI: Reports diarrhea, Patient currently denies abdominal pain, nausea, vomiting. Derm: Skin is pink, warm \T\ dry. Musculoskeletal: Circulation, motion, and sensation intact. Range of motion: intact in all extremities. Historical: - Allergies: 11:40 Hydrocodone-Acetaminophen; ph 11:40 PENICILLINS; ph - PMHx: 11:40 depressive disorder; diabetes mellitus; GERD; Hypertensive disorder; ph Hypercholesterolemia; kidney disease; Osteoporosis; - Immunization history:: Adult Immunizations up to date. - Social history:: Smoking status: Patient denies any tobacco usage or history of. - Family history:: not pertinent. Screenin:42 Abuse screen: Denies threats or abuse. Denies injuries from another. Nutritional ph screening: No deficits noted. Tuberculosis screening: No symptoms or risk factors identified. Fall Risk None identified. Assessment: 12:07 General: SEE TRIAGE ASSESSMENT. : suprapubic catheter in place to gravity drainage. ph 14:31 General: Verbal consent obtained for administration of Bebtelovimab. Pt states kb3 understanding of medication use and side effects.. 15:35 General: Spoke with Madalyn at [facility], gave report on pt for transport home. Per kb3 Madalyn, pt's son Vadim was notified of pt's need for transport back to [facility]. Pt's son is unavailable because he also has covid. Called [facility] back and spoke with Kemal regarding pt's son unable to transport pt home. He reported that he was unaware of what the protocol was to transport a covid positive pt home and would have to make some calls and call us back with arrangements. Camilla notified of pending transport arrangements. 16:20 General: Spoke with Kemal at [facility]. He is going to contact pt's son to 3 transport him back. Awaiting return call. 16:30 General: Received call from Kemal at [facility]. Pt's son will be at ER in a few kb3 minutes to retrieve pt and transport back to [facility].. 16:40 General: Assisted pt to WC and to POV where son was waiting. Pt's son will transport pt kb3 back to [facility]. Paperwork for discharge provided. Vital Signs: 11:37 BP 111 / 50; Pulse 81; Resp 18; Temp 99.0; Pulse Ox 96% on R/A; Weight 81.65 kg; Height ph 5 ft. 7 in. (170.18 cm); Pain 0/10; 12:30 BP 118 / 45; Pulse 69; Resp 20; Pulse Ox 95% ; ph 13:15 BP 114 / 47; Pulse 67; Resp 20; Pulse Ox 95% 2 lpm ; kb3 14:30 BP 122 / 49; Pulse 70; Resp 18; Pulse Ox 100% 2 lpm ; kb3 14:45 BP 131 / 58; Pulse 68; Resp 18; Pulse Ox 97% 2 lpm ; kb3 15:00 BP 113 / 54; Pulse 68; Resp 20; Pulse Ox 97% 2 lpm ; kb3 15:48 BP 142 / 56; Pulse 71; Resp 18; Pulse Ox 92% on R/A; kb3 11:37 Body Mass Index 28.19 (81.65 kg, 170.18 cm) ph ED Course: 11:36 Patient arrived in ED. ph 11:38 Rob Herring MD is Attending Physician. rn 11:40 Triage completed. ph 11:40 Arm band placed on Patient placed in an exam room, on a stretcher, on pulse oximetry. ph 11:42 Patient has correct armband on for positive identification. Bed in low position. Call ph light in reach. Side rails up X2. Pulse ox on. NIBP on. Door closed. Noise minimized. Warm blanket given. 11:47 Aileen Heath, GINO is Primary Nurse. ph 11:55 Initial lab(s) drawn, by me, sent to lab. Inserted saline lock: 22 gauge in right ph antecubital area, using aseptic technique. Blood collected. 12:39 XRAY Chest (1 view) In Process Unspecified. EDMS 16:45 No provider procedures requiring assistance completed. IV discontinued, intact, kb3 bleeding controlled, No redness/swelling at site. Administered Medications: 12:07 Drug: NS 0.9% 1000 ml Route: IV; Rate: 1000 ml; Site: right antecubital; ph 14:00 Follow up: IV Status: Completed infusion kb3 15:28 Follow up: Response: No adverse reaction; IV Status: Completed infusion; IV Intake: kb3 1000ml 14:33 Drug: Bebtelovimab 175 mg Route: IV; Rate: calculated rate; Site: right antecubital; kb3 15:28 Follow up: Response: No adverse reaction kb3 15:25 Drug: LoMOTIL (diphenoxylate-atropine) 2 tabs Route: PO; kb3 15:29 Follow up: Response: No adverse reaction kb3 Medication: 11:42 VIS not applicable for this client. ph Intake: 15:28 IV: 1000ml; Total: 1000ml. kb3 Outcome: 15:08 Discharge ordered by . rn 17:19 Discharged to home via wheelchair, with family. kb3 17:19 Condition: stable 17:19 Discharge instructions given to patient, family, detention, Instructed on discharge instructions, follow up and referral plans. medication usage, Demonstrated understanding of instructions, follow-up care, medications. 17:20 Patient left the ED. kb3 Signatures: Dispatcher [employer] EDMS Rob Herring MD MD rn Aileen Heath RN RN Idalmis Liu RN RN kb3 Corrections: (The following items were deleted from the chart) 15:50 13:15 BP 114 / 47; Pulse 67bpm; Resp 20bpm; Pulse Ox 95%; ph kb3 15:50 14:30 BP 122 / 49; Pulse 70bpm; Resp 18bpm; Pulse Ox 100%; kb3 kb3 15:50 14:45 BP 131 / 58; Pulse 68bpm; Resp 18bpm; Pulse Ox 97%; kb3 kb3 15:50 15:00 BP 113 / 54; Pulse 68bpm; Resp 20bpm; Pulse Ox 97%; kb3 kb3
--- NOTE | 2022-08-06 15:09 | EDPHYS ---
Physician Documentation [facility] Name: Hugo Medley Age: 87 yrs Sex: Male : 1935 Arrival Date: 08/06/2022 Time: 11:36 Bed 24 Private MD: ED Physician Rob Herring HPI: 08/06 13:53 This 87 yrs old Male presents to ER via EMS with complaints of General Weakness. rn 13:53 The patient presents to the emergency department with diarrhea. Onset: The rn symptoms/episode began/occurred yesterday. Possible causes: COVID. The symptoms are aggravated by nothing. The symptoms are alleviated by nothing. Associated signs and symptoms: Pertinent positives: diarrhea, Pertinent negatives: fever, GI bleeding, vomiting. Severity of symptoms: At their worst the symptoms were mild in the emergency department the symptoms are unchanged. The patient has not experienced similar symptoms in the past. The patient has not recently seen a physician. 13:53 Pt reports diagnosed with COVID yesterday, + diarrhea, no sob/cough/chest pain. NO abd rn pain. Reports mild weakness, didn't want to come in, but sent from halfway for eval.. Historical: - Allergies: 11:40 Hydrocodone-Acetaminophen; ph 11:40 PENICILLINS; ph - PMHx: 11:40 depressive disorder; diabetes mellitus; GERD; Hypertensive disorder; ph Hypercholesterolemia; kidney disease; Osteoporosis; - Immunization history:: Adult Immunizations up to date. - Social history:: Smoking status: Patient denies any tobacco usage or history of. - Family history:: not pertinent. ROS: 13:53 Constitutional: Negative for fever, chills, and weight loss, Eyes: Negative for injury, rn pain, redness, and discharge, Neck: Negative for injury, pain, and swelling, Cardiovascular: Negative for chest pain, palpitations, and edema, Respiratory: Negative for shortness of breath, cough, wheezing, and pleuritic chest pain, Abdomen/GI: Negative for abdominal pain, nausea, vomiting, and constipation, MS/Extremity: Negative for injury and deformity, Skin: Negative for injury, rash, and discoloration, Neuro: Negative for headache, numbness, tingling, and seizure. Exam: 13:41 ECG was reviewed by the Attending Physician. rn 13:53 Constitutional: This is a well developed, well nourished patient who is awake, alert, rn and in no acute distress. Head/Face: Normocephalic, atraumatic. Eyes: Periorbital areas with no swelling, redness, or edema. ENT: Dry mm Neck: Trachea midline, no thyromegaly or masses palpated, and no cervical lymphadenopathy. Supple, full range of motion without nuchal rigidity, or vertebral point tenderness. No Meningismus. Cardiovascular: Regular rate and rhythm. No pulse deficits. Respiratory: No increased work of breathing, no retractions or nasal flaring. Abdomen/GI: Soft, non-tender Skin: Warm, dry with normal turgor. Normal color with no rashes, no lesions, and no evidence of cellulitis. Neuro: Awake and alert, GCS 15 Vital Signs: 11:37 BP 111 / 50; Pulse 81; Resp 18; Temp 99.0; Pulse Ox 96% on R/A; Weight 81.65 kg; Height ph 5 ft. 7 in. (170.18 cm); Pain 0/10; 12:30 BP 118 / 45; Pulse 69; Resp 20; Pulse Ox 95% ; ph 13:15 BP 114 / 47; Pulse 67; Resp 20; Pulse Ox 95% 2 lpm ; kb3 14:30 BP 122 / 49; Pulse 70; Resp 18; Pulse Ox 100% 2 lpm ; kb3 14:45 BP 131 / 58; Pulse 68; Resp 18; Pulse Ox 97% 2 lpm ; kb3 15:00 BP 113 / 54; Pulse 68; Resp 20; Pulse Ox 97% 2 lpm ; kb3 15:48 BP 142 / 56; Pulse 71; Resp 18; Pulse Ox 92% on R/A; kb3 11:37 Body Mass Index 28.19 (81.65 kg, 170.18 cm) ph MDM: 11:38 Patient medically screened. rn 13:53 Differential diagnosis: viral gastroenteritis, gastroenteritis, dehydration. Data rn reviewed: vital signs, nurses notes, lab test result(s), radiologic studies, plain films, and as a result, I will discharge patient. Post IV fluid administration reassessment for Sepsis: Capillary refill examination performed. Counseling: I had a detailed discussion with the patient and/or guardian regarding: the historical points, exam findings, and any diagnostic results supporting the discharge/admit diagnosis, lab results, radiology results, the need for outpatient follow up, to return to the emergency department if symptoms worsen or persist or if there are any questions or concerns that arise at home. Response to treatment: the patient's symptoms have markedly improved after treatment, and as a result, I will discharge patient. Special discussion: I discussed with the patient/guardian in detail that at this point there is no indication for admission to the hospital. It is understood, however, that if the symptoms persist or worsen the patient needs to return immediately for re-evaluation. I discussed with the patient the need to follow-up with the PCP/specialist for the noted incidental finding on X-ray/CT scanning. ED course: Pt with incidental widened mediastinum on cxr, no chest or resp complaints, here for covid related diarrhea and weakness, advised to f/u as outpt for chest imaging and surveillance. . 08/06 11:44 Order name: CBC with Diff; Complete Time: 13:52 rn 08/06 11:44 Order name: Basic Metabolic Panel; Complete Time: 13:52 rn 08/06 11:44 Order name: XRAY Chest (1 view); Complete Time: 13:52 rn 08/06 12:41 Order name: Manual Differential; Complete Time: 13:52 EDMS 08/06 11:44 Order name: IV Start; Complete Time: 12:07 rn 08/06 11:44 Order name: EKG; Complete Time: 11:45 rn 08/06 11:44 Order name: EKG - Nurse/Tech; Complete Time: 12:07 rn EC:41 Rate is 77 beats/min. Rhythm is regular. QRS [place] is Normal. CA interval is prolonged rn at 228 msec. QRS interval is normal. QT interval is normal. No Q waves. T waves are Normal. No ST changes noted. Clinical impression: 1st degree heart block. Interpreted by me. Reviewed by me. Administered Medications: 12:07 Drug: NS 0.9% 1000 ml Route: IV; Rate: 1000 ml; Site: right antecubital; ph 14:00 Follow up: IV Status: Completed infusion kb3 15:28 Follow up: Response: No adverse reaction; IV Status: Completed infusion; IV Intake: kb3 1000ml 14:33 Drug: Bebtelovimab 175 mg Route: IV; Rate: calculated rate; Site: right antecubital; kb3 15:28 Follow up: Response: No adverse reaction kb3 15:25 Drug: LoMOTIL (diphenoxylate-atropine) 2 tabs Route: PO; kb3 15:29 Follow up: Response: No adverse reaction kb3 Disposition Summary: 08/06/22 15:08 Discharge Ordered Location: Home rn Problem: new rn Symptoms: have improved rn Condition: Stable rn Diagnosis - SARS-associated coronavirus as the cause of diseases classified elsewhere rn - Diarrhea, unspecified rn - Dehydration rn Followup: rn - With: Private Physician - When: As needed - Reason: Recheck today's complaints, Re-evaluation by your physician Discharge Instructions: - Discharge Summary Sheet rn - Dehydration, Adult rn - Diarrhea, Adult rn Forms: - Medication Reconciliation Form rn - Thank You Letter rn - Antibiotic rn post partum - Prescription Opioid Use rn Signatures: Dispatcher [employer] Rob Clark MD MD rn Hall, Patricia, RN RN ph Bradberry, Kelly, RN RN kb3
[2022-08-06] MEDS ORDERED: DIPHENOX/ATROP SULF 1 TAB PO ONE (15:30)
[2022-08-07 06:32] VITALS: TEMP 99
[2022-08-07 07:09] VITALS: BP 142/56; O2SAT 92
--- NOTE | 2022-08-07 13:37 | EKG ---
Test Date: 2022-08-06 Test Time: 12:01:55 Violent Crimes Detective: KV MEASUREMENT RESULTS: Intervals: Rate: 77 ID: [id number] QRSD: 106 QT: 424 QTc: 479 [place]: P: 25 ID: [id number] QRS: 9 T: 45 INTERPRETIVE STATEMENTS: Sinus rhythm with 1st degree AV block Otherwise normal ECG Compared to ECG 06/30/2022 06:29:01 No significant changes Electronically Signed On 08-07-22 13:35:12 CDT by Heber Miller
== END 2022-08-06 17:20 | disposition home or self-care (01) ==
LOC: ER 11:32
DX: E86.0 Dehydration (principal); U07.1 COVID-19; R19.7 Diarrhea, unspecified; I10 Essential (primary) hypertension; Z88.0 Allergy status to penicillin; Z88.5 Allergy status to narcotic agent
CPT/HCPCS: 96361; 93005; 85025; 80048; 36415; 71045; 96374; 99284; J7030

== ENCOUNTER 2022-09-09 10:08 | Day surgery (SDC) | payer OTHER ==
[2022-09-09 10:27] LABS: Absolute Lymphocytes (CBC) 0.9 K/uL (0.7-4.9); Hematocrit 35.1 % (39.6-49.0); Lymphocytes % 15.6 % (15.3-44.8); MCV 91.5 fL (80-100); MPV 8.1 fL (7.6-11.3); RBC Red Blood Cell Count 3.83 M/uL (4.33-5.43)
[2022-09-09] MEDS ORDERED: NA CHLORIDE 0.9% 1,000 ML ONE (10:41)
[2022-09-09 11:13] LABS: Potassium 3.9 mmol/L (3.5-5.1)
[2022-09-09] MEDS ORDERED: propofoL 200 MG/20 ML VIAL IV ONE (11:46)
[2022-09-09] MEDS ORDERED: LIDOCAINE 2% MPF 5 ML VIAL ONE (11:46)
[2022-09-09] MEDS ORDERED: ONDANSETRON 4 MG/2 ML VIAL ONE (11:46)
[2022-09-09] MEDS ORDERED: FENTANYL CITR 100 MCG/2 ML ONE (11:46)
[2022-09-09] MEDS ORDERED: NS 0.9% VIAL 10 ML ONE (11:49)
[2022-09-09] MEDS ORDERED: BUPIVACAINE 0.25% PF 10 ML VIAL ONE (12:03)
[2022-09-09] MEDS: HYDROMORPHONE HCL 1 MG/ML INJ ONE ×2 (12:41→12:50)
--- NOTE | 2022-09-09 13:34 | OP ---
Date of Procedure: 09/09/2022 Surgeon: Fazal Amos MD Preoperative Diagnosis: Right fourth trigger digit. Postoperative Diagnosis: Right fourth trigger digit. Procedure: Right fourth trigger digit release. Estimated Blood Loss: Less than 3 cc. Complications: No complications. Specimen: No pathology specimens sent. Indication For Operation: Mr. Medley came to see me in my office without complaints of numbness and t ingling, but did have locking of his fourth digit. He says he has had this for some time and desires operative intervention. We did discuss the possibility of injection, however, he rejects this and w ants to have this taken care of as soon as possible. Risks, benefits, and alternatives to trigger di git release have been discussed with the patient again. He states he understands things as presented and wishes to proceed. It should be noted that in the holding area, he says that sometimes he has s tiffness of his third as well as his fifth digit. Has questions regarding them but cannot remember t hey actually trigger and cannot demonstrate any active triggering in the holding area. Therefore, we will continue with our plan of simply releasing the fourth. He says he understands things as presen carolyn and wishes to proceed. Description Of Procedure: The patient was taken to the operating room, placed in supine position. G eneral anesthesia was obtained by staff. Following this, a well-padded tourniquet was placed on supe rior right arm. Right upper extremity was then prepped and draped in the usual fashion for the ace pierce. Following this, the arm was then elevated, but not exsanguinated. Tourniquet was raised. An incision was made which was just past the most distal hand crease directly over the A1 bette. This was taken down carefully through skin only. Meticulous hemostasis being maintained using bipolar carito ctrocautery. Blunt dissection was then used to expose the A1 bette, as well as the tendon sheath. The A1 bette was then divided in a proximal to distal direction until there were no constricting ban ds in the distal to proximal direction until no constricting bands. This was inspected by hemostats to ensure that there was no restriction. The finger was then brought through full range of motion wi thout sign of triggering or abnormal tendon motion. The tourniquet was dropped and some pressure was held as he does bleed quite easily, however, not bleeding from any particular area and does have ble eding associated with placing the sutures as well which were placed to close. After this, he was mitchell efrain in a well-padded sterile dressing, awakened, and taken to recovery room in good condition. No co mplications. /ROBERT Voice ID: [id number] Report ID: [id number]
[2022-09-09 13:41] VITALS: TEMP 97; O2SAT 98
[2022-09-09 14:12] VITALS: BP 124/46
== END 2022-09-09 14:05 | disposition home or self-care (01) ==
LOC: OR 10:08
PROVIDERS: ATTEND Orthopaedic Surgery
PROC: 0LN70ZZ Release Right Hand Tendon, Open Approach (ICD-10-PCS; principal; 2022-09-09 12:00)
DX: M65.341 Trigger finger, right ring finger (principal); I10 Essential (primary) hypertension; E78.00 Pure hypercholesterolemia, unspecified; E11.9 Type 2 diabetes mellitus without complications; M06.9 Rheumatoid arthritis, unspecified
CPT/HCPCS: 85025; 80048; 36415; 82947; 26055; J2704; J2001; J3010; A4216; J1170; J7030; J2405

== ENCOUNTER 2023-06-06 11:31 | Emergency (ER) | payer OTHER ==
--- NOTE | 2023-06-06 13:17 | RAD REPORT ---
EXAM DESCRIPTION: CT - Stone Protocol - 06/06/2023 1:03 pm CLINICAL HISTORY: Flank pain. diarrhea COMPARISON: OB Limited dated 01/24/2023No comparisonsNo comparisons TECHNIQUE: Axial images were obtained without oral or IV contrast. Lack of contrast limits solid org an and vascular assessment. The [id number] spans the entirety of the system partially obscuring uppermost abdomen and lung bases. Coronal reformatted images were obtained and reviewed. All CT scans are performed using dose optimization technique as appropriate and may include automated exposure control or mA/KV adjustment according to patient size. FINDINGS: The lower lung giles are emphysematous but clear. Small hiatal hernia. Imaged portions of the liver and spleen show no suspicious findings on non-contrast imaging. The panc reas and adrenal glands are normal. No pathologic lymphadenopathy in the abdomen or pelvis. Small calculus is present inferior calyx right kidney. No hydronephrosis. Suprapubic catheter is pres ent. Sigmoid diverticulosis coli is present without diverticulitis moderate stool is present. No bowel obstruction, free air, free fluid or abscess. Normal appendix noted. Vertebroplasty cement is present within the L1 vertebral body. Moderate canal narrowing present. Exte nsive postsurgical hardware lower lumbar spine. IMPRESSION: Small nonobstructive right renal calculus. Suprapubic catheter is in place without gross abnormality. The urinary bladder appears largely decomp ressed. Moderate sigmoid diverticulosis coli without diverticulitis.
[2023-06-06 13:46] LABS: Albumin 3.5 g/dL (3.4-5.0); Bilirubin Total 0.2 mg/dL (0.2-1.0); Potassium 5.7 mEq/L (3.5-5.1); Protein, Total 7.9 g/dL (6.4-8.2)
[2023-06-06 13:50] LABS: Absolute Lymphocytes (CBC) 0.5 K/uL (0.7-4.9); Hematocrit 33.7 % (39.6-49.0); Lymphocytes % 6.9 % (15.3-44.8); MPV 9.1 fL (7.6-11.3); RBC Red Blood Cell Count 3.55 M/uL (4.33-5.43)
[2023-06-06 14:34] LABS: Blood Morphology Comment NOT SEEN (NOT SEEN); Platelet Estimate ADEQ
--- NOTE | 2023-06-06 14:47 | ER ---
Nurse's Notes [facility] Name: Hugo Medley Age: 87 yrs Sex: Male : 1935 Arrival Date: 06/06/2023 Time: 11:31 Bed 5 Private MD: Diagnosis: Mechanical complication of urinary (indwelling) catheter;Hyperkalemia Presentation: 06/06 11:42 Chief complaint: Diarrhea since this morning, catheter not draining today for approx 3 hb hours. Coronavirus screen: At this time, the client does not indicate any symptoms associated with coronavirus-19. Ebola Screen: No symptoms or risks identified at this time. Initial Sepsis Screen: Does the patient meet any 2 criteria? No. Patient's initial sepsis screen is negative. Does the patient have a suspected source of infection? No. Patient's initial sepsis screen is negative. Risk Assessment: Do you want to hurt yourself or someone else? Patient reports no desire to harm self or others. Onset of symptoms was June 06, 2023. 11:42 Method Of Arrival: Wheelchair hb 11:42 Acuity: MAIK 3 hb Historical: - Allergies: 11:44 Hydrocodone-Acetaminophen; hb 11:44 PENICILLINS; hb - PMHx: 11:44 depressive disorder; diabetes mellitus; GERD; Hypercholesterolemia; Hypertensive hb disorder; kidney disease; Osteoporosis; - Immunization history:: Adult Immunizations up to date. - Social history:: Smoking status: Patient denies any tobacco usage or history of. Screenin:59 [facility] ED Fall Risk Assessment (Adult) History of falling in the last 3 months, ss including since admission No falls in past 3 months (0 pts). Abuse screen: Denies threats or abuse. Denies injuries from another. Nutritional screening: No deficits noted. Tuberculosis screening: Never had TB. Assessment: 12:40 General: Appears in no apparent distress. Behavior is calm, cooperative. Neuro: Level ss of Consciousness is awake, alert, obeys commands, Oriented to person, place, time, situation, Tennis Racket Repairer are equal bilaterally. Cardiovascular: Patient's skin is warm and dry. Respiratory: Airway is patent Respiratory effort is even, unlabored, Respiratory pattern is regular, symmetrical. : Reports suprapubic catheter noted. Pt reports that it seems to get clogged all the time and he feels like his bladder is full. removed 25 mL from suprapubic catheter and urine started flowing from stoma. Pt reports feeling better. 16 F suprapubic catheter inserted VIA Aseptic technique, pt tolerated well. Urine draining into ayala bag. Approx 400 mL now. Derm: Skin is intact, is healthy with good turgor, Skin is pink, warm \T\ dry. normal. 12:55 Reassessment: Pt to CT now. ss Vital Signs: 11:42 BP 142 / 88; Pulse 75; Resp 16; Temp 98.1(O); Pulse Ox 97% on R/A; Weight 95.25 kg; hb Height 5 ft. 7 in. ; Pain 7/10; 11:42 Body Mass Index 32.89 (95.25 kg, 170.18 cm) hb 11:42 Pain Scale: Adult hb ED Course: 11:31 Patient arrived in ED. mr 11:43 Triage completed. hb 11:44 Arm band placed on. hb 12:02 Leona Oropeza F[facility]-C is [facility]. kb 12:02 Rogerio Moore MD is Attending Physician. kb 12:30 Patient has correct armband on for positive identification. Bed in low position. Warm ss blanket given. 12:59 16 F Suprapubic catheter inserted with aseptic technique. SEE NURSES NOTES FOR FURTHER ss DOCUMENTATION. 13:04 CT Stone Protocol In Process Unspecified. EDMS 13:19 Inserted saline lock: 22 gauge in left antecubital area, using aseptic technique. Blood ss collected. 14:29 Aileen Heath, RN is Primary Nurse. ph Administered Medications: 15:08 Not Given (Physician Discretion): NS 0.9% IV 1000 ml IV at 1000 ml once ph Outcome: 14:46 Discharge ordered by . kb 15:09 Patient left the ED. ph Signatures: Dispatcher [employer] EDMS Leona Oropeza FNP-C FNP-Mauro Lisa Bragg mr Vidhi Grimm RN RN ss Aileen Heath RN RN ph Toshia Sparks RN RN
--- NOTE | 2023-06-06 14:47 | EDPHYS ---
Physician Documentation [facility] Name: Hugo Medley Age: 87 yrs Sex: Male : 1935 Arrival Date: 06/06/2023 Time: 11:31 Bed 5 Private MD: ED Physician Rogerio Moore HPI: 06/06 16:06 This 87 yrs old Male presents to ER via Wheelchair with complaints of Problem With kb Urinary Catheter, Diarrhea. 16:06 The patient presents with a Ayala catheter problem, is not draining. Onset: The kb symptoms/episode began/occurred today. Modifying factors: The symptoms are alleviated by nothing, the symptoms are aggravated by nothing. Associated signs and symptoms: Pertinent positives: diarrhea, Pertinent negatives: abdominal pain, constipation, dysuria, fever, hematuria, nausea, vomiting. Severity of symptoms: At their worst the symptoms were moderate, in the emergency department the symptoms are unchanged. The patient has not experienced similar symptoms in the past. The patient has not recently seen a physician. Pt reports his ayala has not been draining for 3 hours and he feels fullness to bladder. States he has also had diarrhea this morning. . Historical: - Allergies: 11:44 Hydrocodone-Acetaminophen; hb 11:44 PENICILLINS; hb - PMHx: 11:44 depressive disorder; diabetes mellitus; GERD; Hypercholesterolemia; Hypertensive hb disorder; kidney disease; Osteoporosis; - Immunization history:: Adult Immunizations up to date. - Social history:: Smoking status: Patient denies any tobacco usage or history of. ROS: 15:55 Constitutional: Negative for fever, chills, and weight loss. kb 15:55 Abdomen/GI: Positive for diarrhea, Negative for abdominal pain, nausea and vomiting. 15:55 : Positive for ayala not draining. 15:55 All other systems are negative. Exam: 15:56 Constitutional: This is a well developed, well nourished patient who is awake, alert, kb and in no acute distress. Head/Face: Normocephalic, atraumatic. ENT: Moist Mucous membranes Cardiovascular: Regular rate and rhythm with a normal S1 and S2. No gallops, murmurs, or rubs. No pulse deficits. Respiratory: Respirations even and unlabored. No increased work of breathing. Talking in full sentences Skin: Warm, dry with normal turgor. Normal color. MS/ Extremity: Pulses equal, no cyanosis. Neurovascular intact. Full, normal range of motion. Neuro: Awake and alert, GCS 15, oriented to person, place, time, and situation. Moves all extremities. Normal gait. 15:56 Abdomen/GI: Inspection: suprapubic catheter in place, Bowel sounds: normal, Palpation: soft, in all quadrants, mild abdominal tenderness, in the suprapubic area, reports fullness to bladder. 16:09 ECG was reviewed by the Attending Physician. Vital Signs: 11:42 BP 142 / 88; Pulse 75; Resp 16; Temp 98.1(O); Pulse Ox 97% on R/A; Weight 95.25 kg; hb Height 5 ft. 7 in. ; Pain 7/10; 11:42 Body Mass Index 32.89 (95.25 kg, 170.18 cm) hb 11:42 Pain Scale: Adult hb Procedures: 15:54 Ayala cath inserted by myself - 16 Fr. Returned clear yellow urine. To gravity kb drainage. Balloon inflated. Urine output = 500 ml's. Patient tolerated well. suprapubic catheter. MDM: 12:02 Patient medically screened. kb 15:54 Data reviewed: vital signs, nurses notes. kb 16:07 Differential diagnosis: urinary retention, Ayala catheter problem, colitis, kb diverticulitis. Consideration of Admission/Observation Escalation of care including admission/observation considered. admission considered for hyperkalemia. Discussed with Dr Moore who recommended follow up outpatient and to stop potassium supplements until potassium rechecked. Management of patient was discussed with the following: Dr Moore. Historians other than the Patient: Daughter/Son: son. Counseling: I had a detailed discussion with the patient and/or guardian regarding: the historical points, exam findings, and any diagnostic results supporting the discharge/admit diagnosis, lab results, radiology results, the need for outpatient follow up, a family practitioner, to return to the emergency department if symptoms worsen or persist or if there are any questions or concerns that arise at home. ED course: Discussed treatment of hyperkalemia with Dr Moore. Recommends no treatment at this time due to diarrhea and that new ayala placed is patent and draining now. Discussed with pt and son. All in agreement with plan of care. . 06/06 12:20 Order name: CBC with Diff; Complete Time: 14:35 kb 06/06 12:20 Order name: CMP; Complete Time: 13:51 kb 06/06 14:06 Order name: Manual Differential; Complete Time: 14:35 EDMS 06/06 12:20 Order name: CT Stone Protocol; Complete Time: 13:29 kb 06/06 14:31 Order name: EKG; Complete Time: 14:32 kb 06/06 12:19 Order name: Ayala: replace current ayala; Complete Time: 12:55 kb 06/06 12:20 Order name: IV Saline Lock; Complete Time: 13:19 kb 06/06 12:20 Order name: Labs collected and sent; Complete Time: 13:19 kb 06/06 14:31 Order name: EKG - Nurse/Tech; Complete Time: 14:46 kb EC:09 Rate is 65 beats/min. Rhythm is regular. QRS [place] is Normal. QRS interval is normal at kb 108 msec. QT interval is normal at 451 msec. Administered Medications: 15:08 Not Given (Physician Discretion): NS 0.9% IV 1000 ml IV at 1000 ml once ph Disposition Summary: 06/06/23 14:46 Discharge Ordered Location: Home kb Condition: Stable kb Diagnosis - Mechanical complication of urinary (indwelling) catheter kb - Hyperkalemia kb Followup: kb - With: Emergency Department - When: As needed - Reason: Worsening of condition Followup: kb - With: Private Physician - When: 2 - 3 days - Reason: Recheck today's complaints, Continuance of care, Re-evaluation by your physician Discharge Instructions: - Discharge Summary Sheet kb - Hyperkalemia, [id number] kb Forms: - Medication Reconciliation Form kb - Thank You Letter kb - Antibiotic Education kb - Prescription Opioid Use kb - Patient Portal Instructions kb Signatures: Dispatcher [employer] Leona Choi, MEJIA-C Toshia Aly RN RN Aileen Faust RN ph
[2023-06-06 15:19] VITALS: BP 142/88; TEMP 98.1; O2SAT 97
--- NOTE | 2023-06-08 11:47 | EKG ---
Test Date: 2023-06-06 Test Time: 14:39:14 Outpatient Receptionist: PH MEASUREMENT RESULTS: Intervals: Rate: 65 IN: QRSD: 108 QT: 434 QTc: 451 [place]: P: IN: QRS: 21 T: 60 INTERPRETIVE STATEMENTS: Atrial fibrillation Abnormal ECG Compared to ECG 08/06/2022 12:01:55 Sinus rhythm no longer present First degree AV block no longer present Electronically Signed On 06-08-23 11:44:55 CDT by Heber Miller
== END 2023-06-06 15:09 | disposition home or self-care (01) ==
LOC: ER 11:31
DX: T83.098A Other mechanical complication of other urinary catheter, initial encounter (principal); E87.5 Hyperkalemia; R19.7 Diarrhea, unspecified; Z88.0 Allergy status to penicillin; Z88.5 Allergy status to narcotic agent
CPT/HCPCS: 36415; 51702; 74176; 76377; 80053; 85025; 93005; 99283

== ENCOUNTER 2023-07-14 09:29 | Day surgery (SDC) | payer OTHER ==
[2023-07-13 09:31] LABS: Hematocrit 33.1 % (39.6-49.0); MCV 93.7 fL (80-100); MPV 7.7 fL (7.6-11.3); Platelets 157 thou/uL (152-406); RBC Red Blood Cell Count 3.53 M/uL (4.33-5.43)
[2023-07-14] MEDS ORDERED: Ringers Lactate 1,000 ML IV ONE (09:58)
[2023-07-14 10:00] VITALS: BP 148/70; TEMP 97.9; O2SAT 96
[2023-07-14] MEDS ORDERED: propofoL 200 MG/20 ML VIAL IV ONE (10:52)
[2023-07-14] MEDS ORDERED: FENTANYL CITR 100 MCG/2 ML ONE (10:52)
[2023-07-14] MEDS ORDERED: ONDANSETRON 4 MG/2 ML VIAL ONE (10:53)
[2023-07-14] MEDS ORDERED: LIDOCAINE 2% MPF 5 ML VIAL ONE (10:53)
[2023-07-14] MEDS ORDERED: NA CHLORIDE 0.9% 500 ML ONE (11:44)
[2023-07-14] MEDS ORDERED: BUPIVACAINE 0.25% PF 10 ML VIAL ONE (11:55)
[2023-07-14] MEDS ORDERED: HYDROCODONE/APAP 5/325 MG TAB ONE (13:20)
--- NOTE | 2023-07-14 16:57 | OP ---
Date of Procedure: 07/14/2023 Surgeon: Fazal Amos MD Preoperative Diagnosis: Right second and third trigger digit. Postoperative Diagnosis: Right second and third trigger digit. Procedure: Right second and third trigger digit releases. Estimated Blood Loss: Less than 3 cc. Complications: No complications. Pathology Specimens: No pathology specimens sent. Indications For Operation: Mr. Medley is an 87-year-old male who I have seen for some time and also s een for other trigger digit. He has undergone trigger digit release in the past for other digits and done well and seen in my office with complaints of triggering of his right index and long finger. R isks, benefits, and alternatives with different methods of treating this have been discussed with him including the possibility of conservative management including injection. He says he understands th ings as presented, but he has had trigger digit releases in the past that have done well and wishes t o pursue this again and the specific risks associated this were again discussed with him. Description Of Procedure: The patient was taken to the operating room. General anesthesia was easil y obtained by staff. Following this, a well-padded tourniquet was placed on the superior right arm. Right upper extremity was then prepped and draped in the usual sterile fashion procedure. Following this, the arm was then elevated, but not exsanguinated. Tourniquet was raised. A transverse incisi on was made at the third digit at the level of the A1 bette. This was taken down carefully through skin only. Meticulous hemostasis being maintained using bipolar electrocautery. This allowed for ge ntle blunt spreading and no further sharp dissection was made until the tendon sheath and A1 bette w ere identified. Following this, a small isidro was made in the A1 bette, which demonstrates liberatio n of synovial fluid. This was then expanded in a proximal to distal direction until there were no co nstricting bands and distal to proximal direction until there were no constricting bands. The finger was brought through range of motion, was found to be no abnormal tendon motion. Attention was then turned to the index appropriate. A transverse incision was made over the A1 bette of the index, yoon en down carefully through skin only. Meticulous hemostasis being maintained using bipolar electrocau hannah. Then again, blunt dissection was used. No further sharp dissection was used until the tendon sheath was encountered with the A1 bette. A small isidro was made in the A1 bette and it was then ex tended in a proximal to distal direction until there were no constricting bands and then in a distal to proximal direction until there were no constricting bands. There was a rupture of synovial fluid demonstrating irritation in this area. After this, the index was moved through range of motion. At no time were any sharp instruments placed outside the direct operative field. The incision was then gently closed and the patient was placed in a well-padded dressing after administration of local anes thetic. There were no complications. /MODHolly Voice ID: [id number] Report ID: [id number]
== END 2023-07-14 14:14 | disposition home or self-care (01) ==
LOC: OR 09:29
PROVIDERS: ATTEND Orthopaedic Surgery
PROC: 0LN70ZZ Release Right Hand Tendon, Open Approach (ICD-10-PCS; 2023-07-14)
PROC: 0LN70ZZ Release Right Hand Tendon, Open Approach (ICD-10-PCS; principal; 2023-07-14 11:30)
DX: M65.321 Trigger finger, right index finger (principal); M65.331 Trigger finger, right middle finger
CPT/HCPCS: 85025; 80048; 36415; 82947; 26055 ×2; J2704; J2001; J3010; J2405; J7120; J7040

== ENCOUNTER → 2024-02-04 | Emergency (ER) | payer OTHER ==
[~2024-02-04] MED LIST: NA CHLORIDE 0.9% 1,000 ML ONE
[2024-02-04 12:35] LABS: Absolute Basophils 0.1 K/uL (0-0.5); Absolute Monocytes 1.2 K/uL (0.1-1.3); Absolute Neutrophil 5.3 K/uL (1.8-8.0); Basophils % 0.8 % (0-1.3); Eosinophils % 0.6 % (0-4.4); Hematocrit 35.9 % (39.6-49.0); Hemoglobin 12.1 g/dL (13.6-17.9); Lymphocytes % 13.2 % (15.3-44.8); MCHC 33.6 g/dL (32.0-36.0); MCV 92.1 fL (80-100); MPV 8.6 fL (7.6-11.3); Monocytes % 16.1 % (3.3-12.3); Neutrophils % 69.3 % (41.7-73.7); Platelets 156 thou/uL (152-406); Red Cell Distribution Width 14.6 % (12.1-15.2)
[2024-02-04 12:49] LABS: Albumin 3.6 g/dL (3.4-5.0); Albumin/Globulin Ratio 0.8 (1.1-1.8); Anion Gap 13.5 mEq/L (5.0-15.0); Bilirubin Total 0.8 mg/dL (0.2-1.0); Globulin 4.5 g/dL (2.3-3.5); Potassium 4.5 mEq/L (3.5-5.1); Protein, Total 8.1 g/dL (6.4-8.2)
--- NOTE | 2024-02-04 13:21 | RAD REPORT ---
EXAM DESCRIPTION: CT - Abdomen Pelvis Wo Contrast - 02/04/2024 1:04 pm CLINICAL HISTORY: Abdominal pain. diarrhea COMPARISON: <Comparisons> TECHNIQUE: CT imaging of the abdomen and pelvis was performed without contrast. Solid organ, bowel a nd vascular assessment is limited due to lack of IV and oral contrast. All CT scans are performed using dose optimization technique as appropriate and may include automated exposure control or mA/KV adjustment according to patient size. FINDINGS: The lower lung giles are clear.Small hiatal hernia. The liver, spleen, pancreas, adrenal glands and left kidney are within normal limits for a limited no n-contrast examination.Tiny calculus right kidney without hydronephrosis. No bowel obstruction, free air, free fluid or abscess. Mild sigmoid diverticulosis without diverticul itis. Suprapubic catheter is in place. Multilevel degenerative spondylosis is present with hardware place lumbar spine. Vertebroplasty cemen t is the L1 level. IMPRESSION: No acute intra-abdominal or pelvic findings. A limited non-contrast examination was performed as detailed.
--- NOTE | 2024-02-04 13:43 | ER ---
Nurse's Notes [facility] Name: Hugo Medley Age: 88 yrs Sex: Male : 1935 Arrival Date: 02/04/2024 Time: 11:21 Bed 11 Private MD: Diagnosis: Diarrhea, unspecified Presentation: 02/03 11:36 Chief complaint: Patient states: diarrhea X 2 weeks , getting worse. Coronavirus iw screen: Client presents with at least one sign or symptom that may indicate coronavirus-19. Ebola Screen: Patient negative for fever greater than or equal to 101.5 degrees Fahrenheit, and additional compatible Ebola Virus Disease symptoms Patient denies exposure to infectious person. Patient denies travel to an Ebola-affected area in the 21 days before illness onset. No symptoms or risks identified at this time. Initial Sepsis Screen: Does the patient meet any 2 criteria? No. Patient's initial sepsis screen is negative. Does the patient have a suspected source of infection? No. Patient's initial sepsis screen is negative. Risk Assessment: Do you want to hurt yourself or someone else? Patient reports no desire to harm self or others. Onset of symptoms was January 22, 2024. 11:36 Method Of Arrival: Wheelchair iw 11:36 Acuity: MAIK 3 iw Triage Assessment: 15:46 General: Appears in no apparent distress. Behavior is calm, cooperative, appropriate ko1 for age. Historical: - Allergies: 11:37 PENICILLINS; iw - PMHx: 11:37 GERD; Hypercholesterolemia; Osteoporosis; Hypertensive disorder; iw - PSHx: 11:37 hand; back; iw - Immunization history:: Adult Immunizations up to date. - Social history:: Smoking status: Patient denies any tobacco usage or history of. - Family history:: not pertinent. Screenin:45 [facility] ED Fall Risk Assessment (Adult) History of falling in the last 3 months, ko1 including since admission No falls in past 3 months (0 pts) Confusion or Disorientation No (0 pts) Intoxicated or Sedated No (0 pts) Impaired Gait Yes (1 pt) Mobility Assist Device Used Yes (1 pt) Altered Elimination Yes (1 pt) Score/Fall Risk Level 3 or more points = High Risk Oriented to surroundings, Maintained a safe environment, Educated pt \T\ family on fall prevention, incl call for assistance when getting out of bed, Assessed \T\ reinforced patient's understanding of fall precautions, Hourly rounding (assess needs \T\ fall precautionary measures) done, Used ambulatory aids as needed (educated on \T\ assisted with), Utilized family, sitter, or virtual superintendent maintenance as indicated. Abuse screen: Denies threats or abuse. Denies injuries from another. Nutritional screening: No deficits noted. Tuberculosis screening: No symptoms or risk factors identified. Assessment: 13:45 Pain: Complains of pain in abdomen. GI: Reports diarrhea. : [place] in place Urine is ko1 clear. Vital Signs: 11:36 BP 125 / 58; Pulse 73; Resp 16; Temp 98; Pulse Ox 96% on R/A; Weight 92.99 kg; Height 5 iw ft. 7 in. ; Pain 0/10; 13:45 BP 122 / 60; Pulse 70; Resp 15; Temp 97; Pulse Ox 99% ; ko1 15:26 BP 134 / 72; Pulse 72; Resp 15; Pulse Ox 97% ; ko1 11:36 Body Mass Index 32.11 (92.99 kg, 170.18 cm) iw 11:36 Pain Scale: Adult iw ED Course: 11:23 Patient arrived in ED. rg4 11:26 Toribio Braswell MD is Attending Physician. rt 11:37 Triage completed. iw 11:38 Arm band placed on. iw 12:36 Inserted saline lock: 22 gauge in right forearm, using aseptic technique. as6 13:05 Abdomen In Process Unspecified. EDMS 13:42 Ludwin Silva MD is Referral Physician. rt 13:43 Doreen Estrada RN is Primary Nurse. ko1 13:45 Patient has correct armband on for positive identification. Allergy band placed. Bed in ko1 low position. Call light in reach. Provided Education on: IVF. Pulse ox on. NIBP on. Door closed. Noise minimized. 14:10 Awaiting: IVF to infuse. ko1 14:10 No provider procedures requiring assistance completed. ko1 15:15 Awaiting: continue to wait for fluids to complete. ko1 15:39 IV discontinued, intact, bleeding controlled, No redness/swelling at site. Pressure ko1 dressing applied. Administered Medications: 13:48 Drug: NS 0.9% IV 1000 ml IV at 1 bolus Per protocol; 1000 mL bolus Route: IV; Rate: 1 ko1 bolus; Site: right forearm; 15:30 Follow up: Response: No adverse reaction; IV Status: Completed infusion; IV Intake: ko1 1000ml 15:39 Follow up: Response: No adverse reaction; IV Status: Completed infusion; IV Intake: ko1 1000ml Medication: 13:45 VIS not applicable for this client. ko1 Intake: 15:30 IV: 1000ml; Total: 1000ml. ko1 15:39 IV: 1000ml; Total: 2000ml. ko1 Outcome: 13:43 Discharge ordered by MD. rt 15:39 Discharged to home via wheelchair, with family, ko1 15:39 Condition: stable 15:39 Discharge instructions given to patient, family, Instructed on discharge instructions, follow up and referral plans. medication usage, Demonstrated understanding of instructions, follow-up care, medications, Prescriptions given X 2, 15:47 Patient left the ED. ko1 Signatures: Dispatcher [employer] EDJosey Bauer RN RN iw Garcia, Rubi rg4 Lokesh Walters RN RN as6 Doreen Estrada RN RN ko1 Toribio Braswell MD MD rt Corrections: (The following items were deleted from the chart) 11:38 11:37 PMHx: depressive disorder; iw iw 11:38 11:37 PMHx: diabetes mellitus; iw iw 11:38 11:37 PMHx: Hypertensive disorder; iw iw 11:38 11:37 PMHx: kidney disease; iw iw
--- NOTE | 2024-02-04 13:44 | EDPHYS ---
Physician Documentation [facility] Name: Hugo Medley Age: 88 yrs Sex: Male : 1935 Arrival Date: 02/04/2024 Time: 11:21 Bed 11 Private MD: ED Physician Toribio Braswell HPI: 02/03 17:16 This 88 yrs old Male presents to ER via Wheelchair with complaints of Diarrhea. rt 17:16 Patient presents to the ED with diarrhea, described as pasty and loose. About 5 rt episodes per day. Is been present for 2 weeks, has been progressively worsening. The patient denies any abdominal pain. Denies other acute complaints, symptoms are moderate in severity, no other aggravating or alleviating factors.. Historical: - Allergies: 11:37 PENICILLINS; iw - PMHx: 11:37 GERD; Hypercholesterolemia; Osteoporosis; Hypertensive disorder; iw - PSHx: 11:37 hand; back; iw - Immunization history:: Adult Immunizations up to date. - Social history:: Smoking status: Patient denies any tobacco usage or history of. - Family history:: not pertinent. ROS: 17:16 Constitutional: Negative for fever, chills, and weight loss, Cardiovascular: Negative rt for chest pain, palpitations, and edema, Respiratory: Negative for shortness of breath, cough, wheezing, and pleuritic chest pain, MS/Extremity: Negative for injury and deformity, Skin: Negative for injury, rash, and discoloration, Neuro: Negative for headache, weakness, numbness, tingling, and seizure, 17:16 Abdomen/GI: Positive for diarrhea, Negative for abdominal pain, nausea and vomiting, Exam: 17:16 Constitutional: This is a well developed, well nourished patient who is awake, alert, rt and in no acute distress. Head/Face: Normocephalic, atraumatic. Chest/axilla: Normal chest wall appearance and motion. Nontender with no deformity. No lesions are appreciated. Cardiovascular: Regular rate and rhythm with a normal S1 and S2. No gallops, murmurs, or rubs. Normal PMI, no JVD. No pulse deficits. Respiratory: Lungs have equal breath sounds bilaterally, clear to auscultation and percussion. No rales, rhonchi or wheezes noted. No increased work of breathing, no retractions or nasal flaring. Abdomen/GI: Soft, non-tender, with normal bowel sounds. No distension or tympany. No guarding or rebound. No evidence of tenderness throughout. Skin: Warm, dry with normal turgor. Normal color with no rashes, no lesions, and no evidence of cellulitis. MS/ Extremity: Pulses equal, no cyanosis. Neurovascular intact. Full, normal range of motion. Neuro: Awake and alert, GCS 15, oriented to person, place, time, and situation. Cranial nerves II-XII grossly intact. Motor strength 5/5 in all extremities. Sensory grossly intact. Cerebellar exam normal. Normal gait. Vital Signs: 11:36 BP 125 / 58; Pulse 73; Resp 16; Temp 98; Pulse Ox 96% on R/A; Weight 92.99 kg; Height 5 iw ft. 7 in. ; Pain 0/10; 13:45 BP 122 / 60; Pulse 70; Resp 15; Temp 97; Pulse Ox 99% ; ko1 15:26 BP 134 / 72; Pulse 72; Resp 15; Pulse Ox 97% ; ko1 11:36 Body Mass Index 32.11 (92.99 kg, 170.18 cm) iw 11:36 Pain Scale: Adult iw MDM: 11:47 Patient medically screened. rt 17:16 Differential diagnosis: Gastroenteritis, colitis, diverticulitis, functional diarrhea. rt Data reviewed: vital signs, nurses notes. I considered the following discharge prescriptions or medication management in the emergency department Medications were administered in the Emergency Department. See MAR. Independent interpretation of the following test(s) in the Emergency Department CT Scan: My interpretation is No bowel obstruction some interpretation of CT scan images. Care significantly affected by the following chronic conditions: Hypertension. Counseling: I had a detailed discussion with the patient and/or guardian regarding the historical points, exam findings, and any diagnostic results supporting the discharge/admit diagnosis, lab results, radiology results, the need for outpatient follow up. 02/03 11:48 Order name: CBC with Diff; Complete Time: 13:11 rt 02/03 11:48 Order name: CMP; Complete Time: 13:11 rt 02/03 11:48 Order name: Lipase; Complete Time: 13:11 rt 02/03 13:05 Order name: Abdomen ; Complete Time: 13:29 EDMS 02/03 11:48 Order name: IV Saline Lock; Complete Time: 12:35 rt 02/03 11:48 Order name: Labs collected and sent; Complete Time: 12:35 rt Administered Medications: 13:48 Drug: NS 0.9% IV 1000 ml IV at 1 bolus Per protocol; 1000 mL bolus Route: IV; Rate: 1 ko1 bolus; Site: right forearm; 15:30 Follow up: Response: No adverse reaction; IV Status: Completed infusion; IV Intake: ko1 1000ml 15:39 Follow up: Response: No adverse reaction; IV Status: Completed infusion; IV Intake: ko1 1000ml Disposition Summary: 02/04/24 13:43 Discharge Ordered Notes: Location: Home rt Problem: an ongoing problem rt Symptoms: are unchanged rt Condition: Stable rt Diagnosis - Diarrhea, unspecified rt Followup: rt - With: Ludwin Silva MD - When: 2 - 3 days - Reason: Discharge Instructions: - Discharge Summary Sheet rt - Diarrhea, Adult rt Forms: - Medication Reconciliation Form rt - Thank You Letter rt - Antibiotic Education rt - Prescription Opioid Use rt - Patient Portal Instructions rt - Leadership Thank You Letter rt Prescriptions: - Flagyl 500 mg Oral Tablet - take 1 tablet ORAL route every 12 hours for 7 days; 14 tablet; Refills: 0, rt Product Selection Permitted - Cipro 500 mg Oral Tablet - take 1 tablet ORAL route every 12 hours for 7 days; 14 tablet; Refills: 0, rt Product Selection Permitted Signatures: Dispatcher [employer] Josey Lazaro RN RN iw Oliver, Kathy, RN RN ko1 Toribio Braswell MD MD rt Corrections: (The following items were deleted from the chart) 11:38 11:37 PMHx: depressive disorder; 1138 11:37 PMHx: diabetes mellitus; 1138 11:37 PMHx: Hypertensive disorder; 11:37 PMHx: kidney disease; 13:05 11:49 Abdomen Pelvis W Con+CT.RAD.BRZ ordered. EDMS EDMS
[2024-02-04 16:19] VITALS: BP 134/72; TEMP 97; O2SAT 97
== END ==
LOC: ER 11:21
DX: R19.7 Diarrhea, unspecified (principal); Z88.0 Allergy status to penicillin
CPT/HCPCS: 96361; 85025; 36415; 83690; 80053; 74176; 96360; 99284; J7030

== ENCOUNTER 2024-04-18 20:33 | Emergency (ER) | payer OTHER ==
[2024-04-18] MEDS ORDERED: NA CHLORIDE 0.9% 1,000 ML ONE (21:46)
[2024-04-18 21:47] LABS: Absolute Basophils 0.1 K/uL (0-0.5); Absolute Eosinophils 0.2 K/uL (0-0.5); Absolute Lymphocytes (CBC) 1.7 K/uL (0.7-4.9); Absolute Neutrophil 3.1 K/uL (1.8-8.0); Basophils % 1.4 % (0-1.3); Eosinophils % 3.8 % (0-4.4); Hemoglobin 10.8 g/dL (13.6-17.9); Lymphocytes % 28.1 % (15.3-44.8); MCH 30.9 pg (27.0-35.0); MCHC 32.8 g/dL (32.0-36.0); MCV 94.3 fL (80-100); MPV 8.8 fL (7.6-11.3); Monocytes % 16.2 % (3.3-12.3); Neutrophils % 50.5 % (41.7-73.7); Nucleated Red Blood Cells % 0.1 % (0-0); Platelets 132 thou/uL (152-406); Red Cell Distribution Width 14.4 % (12.1-15.2)
[2024-04-18 21:48] LABS: Specific Gravity 1.007 (1.005-1.030); Sqamous Epithelial <5 /HPF (None Seen); Urine Bacteria <20 /HPF (<20); Urine Bilirubin NEGATIVE (Negative); Urine Blood Trace (Negative); Urine Clarity Extremely Turbid (Clear); Urine Color Light-Brown (Yellow); Urine Culture Reflex Order NOT NEEDED; Urine Glucose NEGATIVE (Negative); Urine Ketones NEGATIVE (Negative); Urine Micro Reflex YN NO BILL MICROSCOPIC; Urine Mucus Slight /HPF (None Seen); Urine Nitrite NEGATIVE (Negative); Urine Protein 1+ (Negative); Urine Urobilinogen Normal (Normal); Urine WBC <5 /HPF (<5)
[2024-04-18 22:29] LABS: Anion Gap 14.4 mEq/L (5.0-15.0)
[2024-04-18 22:30] LABS: Potassium 4.4 mEq/L (3.5-5.1)
--- NOTE | 2024-04-18 22:39 | ER ---
Nurse's Notes [facility] Name: Hugo Medley Age: 88 yrs Sex: Male : 1935 Arrival Date: 04/18/2024 Time: 20:33 Bed 17 Private MD: Diagnosis: UTI/ Urinary tract infection, site not specified;Acute cystitis with hematuria Presentation: 04/18 21:04 Chief complaint: Patient states: BLOOD IN CAMARA CATHETER Parent and/or Guardian states: jj7 GRANDSON STATES HE IS A LITTLE CONFUSED. Coronavirus screen: At this time, the client does not indicate any symptoms associated with coronavirus-19. Ebola Screen: No symptoms or risks identified at this time. Initial Sepsis Screen: Does the patient meet any 2 criteria? No. Patient's initial sepsis screen is negative. Does the patient have a suspected source of infection? No. Patient's initial sepsis screen is negative. Risk Assessment: Do you want to hurt yourself or someone else? Patient reports no desire to harm self or others. Onset of symptoms was April 18, 2024. 21:04 Method Of Arrival: Wheelchair jj7 21:04 Acuity: MAIK 3 jj7 Triage Assessment: 21:08 General: Appears in no apparent distress. comfortable, Behavior is calm, cooperative, jj7 appropriate for age. Pain: Denies pain. : Reports JAYJAY COLORED URINE IN CATHETER. Historical: - Allergies: 21:08 Hydrocodone-Acetaminophen; jj7 21:08 PENICILLINS; jj7 - PMHx: 21:08 GERD; Hypercholesterolemia; Hypertensive disorder; Osteoporosis; jj7 - PSHx: 21:08 back; hand; jj7 - Immunization history:: Adult Immunizations up to date, Client reports receiving the 2nd dose of the Covid vaccine, Pneumococcal vaccine is up to date, Flu vaccine is up to date. - Infectious Disease History:: Denies. - Social history:: Smoking status: Patient denies any tobacco usage or history of. Patient/guardian denies using alcohol, street drugs, IV drugs. Screenin:13 Abuse screen: Denies threats or abuse. Nutritional screening: No deficits noted. jj7 Tuberculosis screening: No symptoms or risk factors identified. 22:55 [facility] ED Fall Risk Assessment (Adult) History of falling in the last 3 months, tl4 including since admission No falls in past 3 months (0 pts) Confusion or Disorientation No (0 pts) Intoxicated or Sedated No (0 pts) Impaired Gait No (0 pts) Mobility Assist Device Used No (0 pt) Altered Elimination No (0 pt) Score/Fall Risk Level 0 - 2 = Low Risk Oriented to surroundings, Maintained a safe environment, Educated pt \T\ family on fall prevention, incl call for assistance when getting out of bed, Assessed \T\ reinforced patient's understanding of fall precautions. Assessment: 22:00 Reassessment: No changes from previously documented assessment. Patient and/or family tl4 updated on plan of care and expected duration. Pain level reassessed. Patient is alert, oriented x 3, equal unlabored respirations, skin warm/dry/pink. Pt denies any needs at this time. Family at bedside. 23:10 Reassessment: No changes from previously documented assessment. Patient and/or family tl4 updated on plan of care and expected duration. Pain level reassessed. Patient is alert, oriented x 3, equal unlabored respirations, skin warm/dry/pink. Vital Signs: 21:04 BP 124 / 58; Pulse 65; Resp 17; Temp 97.3; Pulse Ox 95% ; Weight 86.18 kg; Height 5 ft. jj7 7 in. ; Pain 0/10; 22:00 BP 117 / 60; Pulse 66; Resp 18; Pulse Ox 96% on R/A; tl4 23:00 BP 112 / 70; Pulse 65; Resp 16; Temp 98.1(O); Pulse Ox 95% on R/A; Pain 0/10; tl4 21:04 Body Mass Index 29.76 (86.18 kg, 170.18 cm) jj7 21:04 Pain Scale: Adult jj7 23:00 Pain Scale: Adult tl4 ED Course: 20:34 Patient arrived in ED. jj6 20:39 Juarez Mares MD is Attending Physician. ec2 21:08 Triage completed. jj7 21:08 Arm band placed on right wrist. jj7 21:13 Patient has correct armband on for positive identification. Bed in low position. Call jj7 light in reach. Side rails up X2. Adult w/ patient. Provided Education on: USE OF CALL NEWELL. Warm blanket given. 21:17 Logdahl, Davis, RN is Primary Nurse. tl4 21:25 Inserted saline lock: 20 gauge in right hand, using aseptic technique. Blood collected. jj7 21:31 BMP Sent. jj7 21:31 CBC with Diff Sent. jj7 21:31 UAM Sent. jj7 23:11 No provider procedures requiring assistance completed. IV discontinued, intact, tl4 bleeding controlled, No redness/swelling at site. Pressure dressing applied. Administered Medications: 21:48 Drug: NS 0.9% IV 1000 ml IV at 1 bolus Per protocol; 1000 mL bolus Route: IV; Rate: 1 jj7 bolus; Site: right hand; 22:48 Follow up: Response: No adverse reaction; IV Status: Completed infusion; IV Intake: tl4 1000ml 22:54 Drug: Bactrim PO 160 mg-800 mg (DS) 160 mg PO every 6 hours Route: PO; tl4 23:06 Follow up: Response: No adverse reaction tl4 Medication: 23:12 VIS not applicable for this client. tl4 Intake: 22:48 IV: 1000ml; Total: 1000ml. tl4 Outcome: 22:38 Discharge ordered by . ec2 23:00 Discharged to home via wheelchair, with family, tl4 23:00 Condition: stable 23:00 Discharge instructions given to patient, family, Instructed on discharge instructions, follow up and referral plans. medication usage, Demonstrated understanding of instructions, follow-up care, medications, Prescriptions given X 2, 23:13 Patient left the ED. tl4 Signatures: Penny Silver6 Nichelle Henderson RN RN jj7 Juarez aMres MD MD 2 Davis Henriquez RN RN tl4
--- NOTE | 2024-04-18 22:39 | EDPHYS ---
Physician Documentation [facility] Name: Hugo Medley Age: 88 yrs Sex: Male : 1935 Arrival Date: 04/18/2024 Time: 20:33 Bed 17 Private MD: ED Physician Juarez Mares HPI: 04/18 21:13 This 88 yrs old Male presents to ER via Wheelchair with complaints of Blood ec2 In Catheter. 21:13 Patient arrives today for evaluation of blood in his Armenta catheter. Patient is brought ec2 in by grandsons who states that they noted some darker colored urine. Patient with no complaints of fevers or chills, no nausea or vomiting. Patient reportedly had some alteration in his mental status per the grandsons. Patient denies any abdominal pain.. Historical: - Allergies: 21:08 Hydrocodone-Acetaminophen; jj7 21:08 PENICILLINS; jj7 - PMHx: 21:08 GERD; Hypercholesterolemia; Hypertensive disorder; Osteoporosis; jj7 - PSHx: 21:08 back; hand; jj7 - Immunization history:: Adult Immunizations up to date, Client reports receiving the 2nd dose of the Covid vaccine, Pneumococcal vaccine is up to date, Flu vaccine is up to date. - Infectious Disease History:: Denies. - Social history:: Smoking status: Patient denies any tobacco usage or history of. Patient/guardian denies using alcohol, street drugs, IV drugs. ROS: 21:13 Constitutional: as per hpi ec2 Exam: 21:13 Constitutional: GEN: NAD Head: atraumatic Eyes: EOMI Ears: External ears are ec2 normal. CV: regular rate LUNGS: no respiratory distress ABD: non-distended, soft, nontender, no guarding, not rigid. : Armenta catheter in place, [employer] colored urine noted SKIN: no evidence of rashes MSK: no evidence of trauma NEURO: moves all extremities equally Vital Signs: 21:04 BP 124 / 58; Pulse 65; Resp 17; Temp 97.3; Pulse Ox 95% ; Weight 86.18 kg; Height 5 ft. jj7 7 in. ; Pain 0/10; 22:00 BP 117 / 60; Pulse 66; Resp 18; Pulse Ox 96% on R/A; tl4 23:00 BP 112 / 70; Pulse 65; Resp 16; Temp 98.1(O); Pulse Ox 95% on R/A; Pain 0/10; tl4 21:04 Body Mass Index 29.76 (86.18 kg, 170.18 cm) jj7 21:04 Pain Scale: Adult jj7 23:00 Pain Scale: Adult tl4 MDM: 21:05 Patient medically screened. ec2 21:13 Data reviewed: vital signs. ED course: Patient arrives today for possible ulceration of ec2 mental status as well as urinary discoloration. Examination remarkable for abdominal and findings as above. Will obtain lab work, urine studies and further assess. Differential diagnosis include process such as urinary tract infection, doubt ureteral stone or kidney stone, additionally considering JUICE. 22:32 ED course: Metabolic profile shows renal dysfunction with a creatinine of 1.82 and a ec2 GFR of 36. When compared to external records, patient's renal function is fairly similar. Will discharge patient with prescription for antibiotics and have the patient follow-up with outpatient physician. . 22:38 ED course: On discharge patient also asked for refill for his prescription for ec2 Prilosec.. 04/18 20:39 Order name: UAM; Complete Time: 21:59 ec2 04/18 21:13 Order name: CBC with Diff; Complete Time: 21:59 ec2 04/18 21:13 Order name: BMP; Complete Time: 22:31 ec2 Administered Medications: 21:48 Drug: NS 0.9% IV 1000 ml IV at 1 bolus Per protocol; 1000 mL bolus Route: IV; Rate: 1 jj7 bolus; Site: right hand; 22:48 Follow up: Response: No adverse reaction; IV Status: Completed infusion; IV Intake: tl4 1000ml 22:54 Drug: Bactrim PO 160 mg-800 mg (DS) 160 mg PO every 6 hours Route: PO; tl4 23:06 Follow up: Response: No adverse reaction tl4 Disposition Summary: 04/18/24 22:38 Discharge Ordered Notes: Location: Home ec2 Condition: Stable ec2 Diagnosis - UTI/ Urinary tract infection, site not specified ec2 - Acute cystitis with hematuria ec2 Followup: ec2 - With: Private Physician - When: - Reason: Re-evaluation by your physician Discharge Instructions: - Discharge Summary Sheet ec2 - Urinary Tract Infection, Adult, [id number] ec2 Forms: - Medication Reconciliation Form ec2 - Antibiotic Education ec2 - Prescription Opioid Use ec2 - Patient Portal Instructions ec2 - Leadership Thank You Letter ec2 Prescriptions: - Prilosec OTC 20 mg Oral tablet, delayed release (enteric coated) - take 1 tablet ORAL route daily for 28 days; 28 tablet; Refills: 0, Product ec2 Selection Permitted - Bactrim DS 800-160 mg Oral Tablet - take 1 tablet ORAL route every 12 hours for 7 days; 14 tablet; Refills: 0, ec2 Product Selection Permitted Signatures: Dispatcher [employer] Nichelle Batista RN RN jj7 Juarez Mares MD MD ec2 Davis Henriquez RN RN tl4
[2024-04-18] MEDS ORDERED: SMZ./TMP. 800/160 MG TABLET ONE (22:51)
[2024-04-18 23:29] VITALS: BP 112/70; TEMP 98.1; O2SAT 95
== END 2024-04-18 23:13 | disposition home or self-care (01) ==
LOC: ER 20:33
DX: N30.01 Acute cystitis with hematuria (principal); K21.9 Gastro-esophageal reflux disease without esophagitis
CPT/HCPCS: 85025; 81001; 80048; 36415; 96360; 99284; J7030

== ENCOUNTER 2024-07-20 14:23 | Inpatient (IN) | payer OTHER ==
[2024-07-20 15:14] LABS: Absolute Eosinophils 0.1 K/uL (0-0.5); Absolute Lymphocytes (CBC) 0.8 K/uL (0.7-4.9); Eosinophils % 0.8 % (0-4.4); Hematocrit 30.9 % (39.6-49.0); Hemoglobin 9.8 g/dL (13.6-17.9); Lymphocytes % 7.8 % (15.3-44.8); MCH 29.6 pg (27.0-35.0); MCHC 31.7 g/dL (32.0-36.0); MCV 93.4 fL (80-100); Monocytes % 9.2 % (3.3-12.3); Neutrophils % 82.2 % (41.7-73.7); Platelets 297 thou/uL (152-406); RBC Red Blood Cell Count 3.31 M/uL (4.33-5.43)
[2024-07-20 15:18] LABS: PT Prothrombin Time 15.7 SECONDS (9.4-12.5); PTT, Activated Partial Thromb 31.7 SECONDS (24.3-36.9); Protime INR 1.42
[2024-07-20 15:34] LABS: Albumin 2.1 g/dL (3.4-5.0); Albumin/Globulin Ratio 0.4 (1.1-1.8); Anion Gap 11.4 mEq/L (5.0-15.0); Bilirubin Total 0.3 mg/dL (0.2-1.0); Globulin 5.1 g/dL (2.3-3.5); Protein, Total 7.2 g/dL (6.4-8.2)
[2024-07-20 15:43] LABS: Potassium 3.4 mEq/L (3.5-5.1)
--- NOTE | 2024-07-20 16:11 | RAD REPORT ---
EXAM DESCRIPTION: CT - Abdomen Pelvis Wo Contrast - 07/20/2024 4:03 pm CLINICAL HISTORY: Abdominal pain. sacral decubitus ulcer COMPARISON: Abdomen Pelvis Wo Contrast dated 05/12/2024 TECHNIQUE: CT imaging of the abdomen and pelvis was performed without contrast. Solid organ, bowel a nd vascular assessment is limited due to lack of IV and oral contrast. All CT scans are performed using dose optimization technique as appropriate and may include automated exposure control or mA/KV adjustment according to patient size. FINDINGS: The lower lung giles are clear. The liver, spleen, pancreas, adrenal glands and kidneys are within normal limits for a limited non-co ntrast examination. No bowel obstruction, free air, free fluid or abscess. Nonvisualized appendix. There is a large amoun t of stool in the rectum. 6.4 cm deep right lateral ulceration in the soft tissues which appears to abut the right greater troc hanteric cortex. The cortex appears intact. IMPRESSION: There is a large deep right-sided lateral soft tissue ulceration. This appears to extend to the level of the greater trochanter of the right proximal femur. Definitive osteomyelitis finding s are not seen at this time. A limited non-contrast examination was performed as detailed.
--- NOTE | 2024-07-20 16:30 | EDPHYS ---
Physician Documentation [facility] Name: Hugo Medley Age: 88 yrs Sex: Male : 1935 Arrival Date: 07/20/2024 Time: 14:23 Bed 25 Private MD: ED Physician Angelito Harrison HPI: 07/20 16:30 This 88 yrs old Male presents to ER via EMS with complaints of Wound Check. ms3 16:30 88-year-old male with past medical history of GERD, hyperlipidemia, hypertension, ms3 osteoporosis presents to the emergency department for right gluteal pressure ulcer. EMS notes snf physician stated patient should go to ER secondary to wound after doing wound care.. Historical: - Allergies: 14:47 Hydrocodone-Acetaminophen; ph 14:47 PENICILLINS; ph - PMHx: 14:47 GERD; Hypercholesterolemia; Hypertensive disorder; Osteoporosis; ph - PSHx: 14:47 hand; back; ph - Immunization history:: Adult Immunizations up to date. - Infectious Disease History:: Denies. - Social history:: Smoking status: unknown. ROS: 16:30 Constitutional: Negative for fever, and chills. Cardiovascular: Negative for chest ms3 pain, and palpitations. Respiratory: Negative for shortness of breath, cough, wheezing, and pleuritic chest pain, Abdomen/GI: Negative for abdominal pain, nausea, vomiting, diarrhea, and constipation, 16:30 Skin: Positive for ulceration, of the Right buttock, Exam: 16:30 Constitutional: This is a well developed, well nourished patient who is awake, alert, ms3 and in no acute distress. Chest/axilla: Normal chest wall appearance and motion. Nontender with no deformity. Cardiovascular: Regular rate and rhythm with a normal S1 and S2. No gallops, murmurs, or rubs. Normal PMI, no JVD. No pulse deficits. Respiratory: Lungs have equal breath sounds bilaterally, clear to auscultation and percussion. No rales, rhonchi or wheezes noted. No increased work of breathing, no retractions or nasal flaring. Abdomen/GI: Soft, non-tender, with normal bowel sounds. No distension or tympany. No guarding or rebound. No evidence of tenderness throughout. 16:30 Skin: injury, Right gluteal pressure ulceration with black surrounding eschar, 16:50 ECG was reviewed by the Attending Physician. ms3 Vital Signs: 14:37 BP 127 / 53; Pulse 77; Resp 18; Temp 97.9; Pulse Ox 95% on R/A; ph 16:39 BP 126 / 56; Pulse 76; Resp 18; Pulse Ox 100% on R/A; kj2 17:15 BP 115 / 95; Pulse 59; Resp 16; Pulse Ox 97% ; me1 18:47 BP 126 / 52; Pulse 74; Resp 21; Pulse Ox 97% ; me1 MDM: 14:27 Patient medically screened. ms3 19:43 Differential diagnosis: cellulitis, Sacral decubitus versus abscess versus ms3 osteomyelitis. Data reviewed: vital signs, nurses notes, lab test result(s), radiologic studies, CT scan, and as a result, I will admit patient. Consideration of Admission/Observation Patient was admitted/placed on observation. Management of patient was discussed with the following:. 19:43 Management of patient was discussed with the following: Hospitalist: Dr Herring. I ms3 considered the following discharge prescriptions or medication management in the emergency department Medications were administered in the Emergency Department. See MAR. Counseling: I had a detailed discussion with the patient and/or guardian regarding the historical points, exam findings, and any diagnostic results supporting the discharge/admit diagnosis, lab results, radiology results, the need for further work-up and treatment in the hospital. ED course: Discussed necessity for admission with patient. Patient understands agrees with plan. Questions were answered. 07/20 14:27 Order name: Blood Culture Adult (2) ms3 07/20 14:27 Order name: CBC with Diff; Complete Time: 15:28 ms3 07/20 14:27 Order name: CMP; Complete Time: 15:52 ms3 07/20 14:27 Order name: Lactate w/ 2H reflex if indic.; Complete Time: 15:52 ms3 07/20 14:27 Order name: Protime (+inr); Complete Time: 15:28 ms3 07/20 14:27 Order name: Ptt, Activated; Complete Time: 15:28 ms3 07/20 17:45 Order name: Ghost Lactate-NO COLLECT Timer EDOH 07/20 15:58 Order name: Abdomen EDOH 07/20 14:27 Order name: EKG; Complete Time: 14:28 ms3 07/20 14:27 Order name: Accucheck ms3 07/20 14:27 Order name: Cardiac monitoring; Complete Time: 16:38 ms3 07/20 14:27 Order name: EKG - Nurse/Tech; Complete Time: 16:38 ms3 07/20 14:27 Order name: IV Saline Lock - Large Bore; Complete Time: 15:04 ms3 07/20 14:27 Order name: Labs collected and sent; Complete Time: 15:04 ms3 07/20 14:27 Order name: O2 Per Protocol; Complete Time: 16:38 ms3 07/20 14:27 Order name: O2 Sat Monitoring; Complete Time: 16:38 ms3 07/20 14:27 Order name: Vital Signs; Complete Time: 16:38 ms3 EC:50 Rate is 76 beats/min. Rhythm is regular. QRS [place] is Normal. QRS interval is normal. ms3 Clinical impression: Junctional. Interpreted by me. Reviewed by me. Administered Medications: No medications were administered Disposition Summary: 07/20/24 16:30 Hospitalization Ordered Notes: Hospitalization Status: Inpatient Admission ms3 Provider: Adrian Herring ms3 Location: Telemetry/MedSurg (Inpatient) ms3 Condition: Stable ms3 Problem: new ms3 Symptoms: are unchanged ms3 Bed/Room Type: Standard ms3 Room Assignment: 203(07/20/24 17:37) Diagnosis - Gluteal pressure wound ms3 - Anemia, unspecified ms3 Forms: - Medication Reconciliation Form ms3 - SBAR form ms3 - Leadership Thank You Letter ms3 Signatures: Dispatcher [employer] Josey Lazaro RN RN Aileen Heath RN RN Angelito Harrison, DO ms3 Corrections: (The following items were deleted from the chart) 14:28 14:28 BLOOD CULTURE*+BA.LAB.BRZ ordered. EDMS EDMS 14:28 14:28 CBC+H.LAB.BRZ ordered. EDMS EDMS 14:28 14:28 COMPREHENSIVE METABOLIC PANEL+C.LAB.BRZ ordered. EDMS EDMS 14:28 14:28 LACTATE+C.LAB.BRZ ordered. EDMS EDMS 14:28 14:28 PROTIME (+INR)+COAG.LAB.BRZ ordered. EDMS EDMS 14:28 14:28 PTT, ACTIVATED+COAG.LAB.BRZ ordered. EDMS EDMS 14: 14:30 Abdomen Pelvis W Con+CT.RAD.BRZ ordered. EDMS EDMS 17:37 16:30 ms3 iw
--- NOTE | 2024-07-20 16:30 | ER ---
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 Coronavirus ph screen: Vaccine status: Patient reports receiving the 2nd dose of the covid vaccine. Ebola Screen: No symptoms or risks identified at this time. Initial Sepsis Screen: Does the patient meet any 2 criteria? No. Patient's initial sepsis screen is negative. Does the patient have a suspected source of infection? No. Patient's initial sepsis screen is negative. Risk Assessment: Do you want to hurt yourself or someone else? Patient reports no desire to harm self or others. 14:24 Method Of Arrival: EMS: [facility] ph 14:37 Acuity: MAIK 3 ph 14:49 Onset of symptoms was July 20, 2024. ph Historical: - Allergies: 14:47 Hydrocodone-Acetaminophen; ph 14:47 PENICILLINS; ph - PMHx: 14:47 GERD; Hypercholesterolemia; Hypertensive disorder; Osteoporosis; ph - PSHx: 14:47 hand; back; ph - Immunization history:: Adult Immunizations up to date. - Infectious Disease History:: Denies. - Social history:: Smoking status: unknown. Screenin:48 [facility] ED Fall Risk Assessment (Adult) History of falling in the last 3 months, ph including since admission No falls in past 3 months (0 pts) Confusion or Disorientation No (0 pts) Intoxicated or Sedated No (0 pts) Impaired Gait No (0 pts) Mobility Assist Device Used No (0 pt) Altered Elimination No (0 pt) Score/Fall Risk Level 0 - 2 = Low Risk Oriented to surroundings, Maintained a safe environment, Hourly rounding (assess needs \T\ fall precautionary measures) done. Abuse screen: Denies threats or abuse. Denies injuries from another. Nutritional screening: No deficits noted. Tuberculosis screening: No symptoms or risk factors identified. Assessment: 15:15 General: Appears in no apparent distress. Behavior is calm, cooperative. Neuro: Level kj2 of Consciousness is awake, alert. Cardiovascular: Patient's skin is warm and dry. Respiratory: Airway is patent Respiratory effort is even, unlabored. GI: No deficits noted. 16:40 Reassessment: Patient appears in no apparent distress at this time. Patient and/or kj2 family updated on plan of care and expected duration. Pain level reassessed. Patient is alert, oriented x 3, equal unlabored respirations, skin warm/dry/pink. 18:10 Reassessment:. kj2 Vital Signs: 14:37 BP 127 / 53; Pulse 77; Resp 18; Temp 97.9; Pulse Ox 95% on R/A; ph 16:39 BP 126 / 56; Pulse 76; Resp 18; Pulse Ox 100% on R/A; kj2 17:15 BP 115 / 95; Pulse 59; Resp 16; Pulse Ox 97% ; me1 18:47 BP 126 / 52; Pulse 74; Resp 21; Pulse Ox 97% ; me1 ED Course: 14:24 Patient arrived in ED. ph 14:27 Angelito Harrison DO is Attending Physician. ms3 14:37 Triage completed. ph 14:47 Arm band placed on Patient placed in an exam room, on a stretcher, on outside deliverer, ph on pulse oximetry. 14:49 Patient has correct armband on for positive identification. Placed in gown. Bed in low ph position. Call light in reach. Side rails up X2. Pulse ox on. NIBP on. Door closed. Noise minimized. Warm blanket given. Pillow given. 14:55 Sheri Estrada, RN is Primary Nurse. kj2 15:03 Inserted saline lock: 22 gauge in left forearm, using aseptic technique. Blood cm10 collected. Flushed with 10 mL NS. 15:03 Initial lab(s) drawn, by me, sent to lab. First set of blood cultures drawn by me. cm10 15:04 CBC with Diff Sent. cm10 15:04 Lactate w/ 2H reflex if indic. Sent. cm10 15:04 Protime (+inr) Sent. cm10 15:04 Ptt, Activated Sent. cm10 15:17 Blood Culture Adult (2) Sent. kj2 16:05 Abdomen In Process Unspecified. EDMS 16:29 Adrian Herring MD is Hospitalizing Provider. ms3 16:40 Provided Education on: call light, fall precautions. kj2 16:41 No provider procedures requiring assistance completed. kj2 16:42 CM met with Mr. Medley at the bedside in the ED exam room. Patient identified by name tony and EDEN. Demographic sheet confirmed. Mr Medley states he lives at [facility] and uses a wheelchair to move around. He states he needs assistance feeding and bathing as well. No home oxygen or no MPOA in place at this time. Mr Rodriguez asked CM to call son Vadim to inform him of his hospital stay. 1730 CM agreed and left voice mail for Vadim at [phone]. 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 Plan is to return to [facility] upon discharge. CM team will continue to follow and coordinate care. 18:46 Patient admitted, IV remains in place. me1 Administered Medications: No medications were administered Medication: 14:49 VIS not applicable for this client. ph Outcome: 16:30 Decision to Hospitalize by Provider. ms3 18:46 Admitted to Med/surg accompanied by [facility], via stretcher, room 203, with chart, Report me1 called to faxed by Sheri, spoke to customs house broker to inform her that report had been faxed. 18:47 Condition: stable me1 18:47 Instructed on the need for admit, 18:53 Patient left the ED. me1 Signatures: Dispatcher [employer] Aileen Haq, RN GINO Angelito Harrison DO DO ms3 Nancy Scott, GINO CHRISTIAN cm10 Jana Villasenor RN RN me1 Sheri Estrada RN RN kj2 Berta Leong RN RN ane
--- NOTE | 2024-07-20 17:27 | P.HP ---
Certification for Inpatient Patient admitted to: Inpatient With expected LOS: >2 Midnights Patient will require the following post-hospital care: None Practitioner: I am a practitioner with admitting privileges, knowledge of patient current condition, hospital course, and medical plan of care. Services: Services provided to patient in accordance with Admission requirements found in Title 42 Section 412.3 of the Code of Federal Regulations Patient History Date of Service: 07/20/24 Reason for admission: Gluteal pressure ulcer History of Present Illness: 88-year-old male with history of hypertension, urinary tension with suprapubic catheter in place, diabetes mellitus type [id number], GERD, hyperlipidemia, CKD 3 who is a resident of [facility] presents to the emergency department chief complaint of right gluteal pressure wound. Patient is alert and oriented reports has had the wound for about 10 weeks, he lost his mobility while staying at an assisted living facility and was transition to [facility]. He reports the wound has continued to get worse despite attempts at wound care there and is now foul-smelling, physician at their facility was concern for worsening pressure ulcer and for that reason he was referred to the emergency department. Patient was evaluated here in the emergency department his labs are significant for a white blood cell count of 10.9 hemoglobin 9.8 creatinine 1.6 bicarb 28 lactic acid 2.1 initially, repeat pending CT abdomen pelvis without contrast was obtained which revealed a large deep right sided lateral soft tissue ulceration which appears to extend to the level of the greater trochanter on the right proximal femur. Definitive osteomyelitis findings are not seen at this time. ED prior wishes to admit patient for further evaluation management of this large right gluteal pressure ulcer. Allergies Penicillins Allergy (Verified 05/14/24 14:42) Hives Home Medications: Alendronate Sodium 70 mg PO EVERY 7TH DAY 06/30/22 Acetaminophen [Tylenol] 2 tab PO Q6HP PRN 05/13/24 Fexofenadine HCl 180 mg PO DAILY 05/13/24 Tramadol HCl [Ultram] 50 mg PO BID 05/13/24 Apixaban [Eliquis *] 2.5 mg PO BID 05/25/24 Atorvastatin Calcium [Lipitor*] 20 mg PO BEDTIME tab 05/25/24 Cholestyramine/Asp [Questran Light*] 4 gm PO BEDTIME packet 05/25/24 Citalopram [Celexa*] 20 mg PO DAILY 05/25/24 Docusate/Senna [Senokot-S*] 2 tab PO BID tab 05/25/24 Enema, Fleet Adult [Fleet Enema Adult*] 133 ml MI DAILY PRN bottle 05/25/24 Ensure Max Protein 330 ml PO DAILY can 05/25/24 Famotidine [Pepcid*] 20 mg PO BEDTIME tab 05/25/24 Gabapentin 300 mg PO TID #90 05/25/24 Insulin Regular, Human [Novolin R] See Protocol SQ ACHS ml 05/25/24 Lidocaine 4% Patch [Lidoderm 5% Patch*] 2 patch TOP DAILY pat 05/25/24 Loperamide [Imodium*] 2 mg PO Q4H PRN cap 05/25/24 Medihoney [Medihoney Woundcare Gel*] 1 appl TOP DAILY tube 05/25/24 Megestrol [Megace*] 40 mg PO BID tab 05/25/24 Melatonin [Melatonin*] 3 mg PO BEDTIME PRN PRN 05/25/24 Methenamine 0.5 tab PO BID 05/25/24 Metoprolol Succinate [Toprol Xl*] 50 mg PO DAILY tab 05/25/24 Montelukast [Singulair*] 10 mg PO DAILY tab 05/25/24 Multivit,Ther Iron,Ca,FA & Min [Centrum Tablet*] 1 tab PO DAILY tab 05/25/24 Nystatin Powder [Mycostatin (Powder)*] 1 appl TOP BID bottle 05/25/24 Ondansetron [Zofran (Odt)*] 4 mg PO Q4H PRN tab 05/25/24 Pantoprazole [Protonix Tab*] 40 mg PO DAILYAC tab 05/25/24 Potassium Oral Tab [Klor-Con 10 mEq Tab*] 20 meq PO BID tab 05/25/24 Promethazine/Dextrometh Syr [Phenergan Dm Oral Syrup*] 5 ml PO Q6H PRN osyr 05/25/24 Simethicone [Mylicon*] 80 mg PO BID tab 05/25/24 Vicks Vaporub Ointment 1 leander TOP DAILY PRN 05/25/24 - Past Medical/Surgical History Diabetic: Yes -: NIDDM2 -: HTN -: GERD -: chronic diarrhea -: urinary retention, s/p suprapubic catheter -: suprapubic catheter -: knee surgery -: back surgery Psychosocial/ Personal History: Lives at [facility] - Family History Family History: Reviewed- Non-Contributory - Social History Alcohol use: No CD- Drugs: No Caffeine use: Yes Place of Residence[facility] Review of Systems 10-point ROS is otherwise unremarkable Gastrointestinal: Abdominal Pain Integumentary: As per HPI Physical Examination - Physical Exam General: Alert, In no apparent distress, Oriented x3 HEENT: Atraumatic, PERRLA, EOMI Neck: Supple, 2+ carotid pulse no bruit Respiratory: Clear to auscultation bilaterally, Normal air movement Cardiovascular: Regular rate/rhythm, Normal S1 S2 Gastrointestinal: Normal bowel sounds, No tenderness Musculoskeletal: No tenderness Integumentary: Pressure ulcer (Large right gluteal pressure ulcer with eschar tissue present) Neurological: Normal gait, Normal speech, Normal tone, Normal affect Lymphatics: No axilla or inguinal lymphadenopathy Urinary: Suprapubic catheter - Studies Laboratory Data (last 24 hrs) 07/20/24 07/20/24 07/20/24 15:00 15:00 15:00 WBC 10.90 Hgb 9.8 L Hct 30.9 L Plt Count 297 PT 15.7 H INR 1.42 APTT 31.7 Sodium 137 Potassium 3.4 L BUN 40 H Creatinine 1.60 H Glucose 195 H Total Bilirubin 0.3 AST 41 H ALT 35 Alkaline Phosphatase 129 H Assessment and Plan - Plan Assessment: Large right gluteal pressure ulcer-unstageable Elevated lactate Diabetes mellitus type 0lqo-cusdmvz-tdqwoblie CKD 3 Hypertension Hyperlipidemia Plan: Large right gluteal pressure ulcer-unstageable Continue broad-spectrum antibiotics with vancomycin/Levaquin given penicillin a llergy N.p.o. at midnight, general surgery consult, anticipate need for debridement No signs of osteomyelitis noted on CT at this time No SIRS criteria present currently Blood cultures obtained in ED Elevated lactate Possibly secondary to dehydration No SIRS criteria present currently No sepsis/severe sepsis at this time Repeat lactate pending Diabetes mellitus type 1oqh-zwxuwsm-zcuylzeou Monitor glucose with labs daily If blood sugar persistently elevated consider adding Accu-Cheks Does not appear to be on any medications at the alf for his diabetes CKD 3 Continue gentle IV fluids, monitor daily chemistry Consider nephrology consultation if there is worsening Hypertension Hyperlipidemia Resume home medications when verified/appropriate DVT PPX: SCD Code status: Full Discharge Plan: Snf Plan to discharge in: Greater than 2 days - Advance Directives Does patient have a Living Will: No Does patient have a Durable POA for Healthcare: No - Code Status/Comfort Care Code Status Assessed: Yes (Full code) Critical Care: No Time Spent Managing Pts Care (In Minutes): 70
[2024-07-20] MEDS: Levofloxacin500mg IV 500 MG/100 ML BAG IV SCH (20:26)
[2024-07-20] MEDS: NA CHLORIDE 0.9% 1,000 ML IV SCH (20:26)
[2024-07-20] MEDS: VANCOMYCIN 1.25 GM in NA CHLORIDE 0.9% 250 ML IVPB SCH (20:27)
[2024-07-20] MEDS: MORPHINE 2 MG/ML SYR IV PRN (20:38)
[2024-07-20] MEDS: MELATONIN 3 MG TABLET PO PRN (22:47)
[2024-07-20] MEDS: MIRTAZAPINE 15 MG TAB PO SCH (22:47)
[2024-07-21 05:26] LABS: Absolute Basophils 0.1 K/uL (0-0.5); Absolute Eosinophils 0.1 K/uL (0-0.5); Absolute Lymphocytes (CBC) 0.8 K/uL (0.7-4.9); Absolute Monocytes 1.1 K/uL (0.1-1.3); Absolute Neutrophil 6.8 K/uL (1.8-8.0); Basophils % 0.6 % (0-1.3); Eosinophils % 1.4 % (0-4.4); Hematocrit 28.8 % (39.6-49.0); Hemoglobin 9.3 g/dL (13.6-17.9); Lymphocytes % 9.6 % (15.3-44.8); MCH 30.4 pg (27.0-35.0); MCHC 32.2 g/dL (32.0-36.0); MCV 94.5 fL (80-100); MPV 7.9 fL (7.6-11.3); Monocytes % 11.9 % (3.3-12.3); Neutrophils % 76.5 % (41.7-73.7); Platelets 290 thou/uL (152-406); RBC Red Blood Cell Count 3.05 M/uL (4.33-5.43); Red Cell Distribution Width 14.5 % (12.1-15.2)
[2024-07-21] MEDS: PANTOPRAZOLE 40MG TABLET PO SCH (05:35)
[2024-07-21 06:08] LABS: Anion Gap 9.6 mEq/L (5.0-15.0); Potassium 3.6 mEq/L (3.5-5.1)
[2024-07-21] MEDS: METOPROLOL XL 50 MG TAB PO SCH (08:50)
[2024-07-21] MEDS: TRAMADOL HCL 50 MG TAB PO SCH (08:50)
[2024-07-21] MEDS: POTASSIUM CL SA 10 MEQ TAB PO ONE (08:51)
[2024-07-21] MEDS: CITALOPRAM 10 MG TABLET PO SCH (08:51)
[2024-07-21] MEDS: METHENAMINE PO SCH (08:52)
--- NOTE | 2024-07-21 09:21 | P.PN ---
Date of Service: 07/21/24 Subjective: Doing well No acute events overnight Nurse reports a little trouble swallowing meds this morning ROS: 10 point ROS as noted above, otherwise negative Physical exam GEN: Alert, oriented, NAD HEENT: Normal conjunctiva, sclera anicteric CV: Regular rate and rhythm, no edema Pulm: Nonlabored respirations on room air ABD: Soft, nontender, nondistended, suprapubic catheter in place MSK: No joint tenderness Integumentary: Large right gluteal pressure ulcer with necrotic tissue present Neuro: Normal speech, normal affect Vitals reviewed Assessment: Large right gluteal pressure ulcer-unstageable Mild dysphagia Elevated lactate Diabetes mellitus type 1eki-rlehwmb-igcvdgtzv CKD 3 Hypertension Hyperlipidemia Plan: Large right gluteal pressure ulcer-unstageable Continue broad-spectrum antibiotics with vancomycin/Levaquin given penicillin allergy Anticipate debridement today with general surgery No signs of osteomyelitis noted on CT at this time No SIRS criteria present currently Blood cultures obtained in ED-will follow Mild dysphagia Reported by nursing staff with morning medications After debridement is performed will add speech therapy consult to evaluate further Elevated lactate Improved with IV fluids Possibly secondary to dehydration No sepsis/severe sepsis at this time Diabetes mellitus type 1mma-faeaaht-ontyasvnk Monitor glucose with labs daily If blood sugar persistently elevated consider adding Accu-Cheks Does not appear to [facility] CKD 3 Continue gentle IV fluids, monitor daily chemistry Improved with IV fluids Consider nephrology consultation if there is worsening Hypertension Hyperlipidemia Home medications continued DVT PPX: SCD, Lovenox after surgery Code status: Full Discharge Plan: Skilled Nursing Plan to discharge in: Greater than 2 days Time Spent Managing Pts Care (In Minutes): 35
[2024-07-21] MEDS ORDERED: FENTANYL CITR 100 MCG/2 ML ONE (15:19)
[2024-07-21] MEDS ORDERED: propofoL 200 MG/20 ML VIAL IV ONE (15:19)
[2024-07-21] MEDS ORDERED: EPHEDRINE SULF 50 MG/ML VIAL ONE (15:48)
[2024-07-21] MEDS ORDERED: Phenylephrine HCl 10 MG/ML 1 ML VIAL ONE (16:11)
[2024-07-21] MEDS: NA CHLORIDE 0.9% 1,000 ML ONE (16:23)
[2024-07-21] MEDS: LIDOCAINE HCL/EPINEPHRINE 20 ML MDV ONE (16:30)
[2024-07-21] MEDS: LIDOCAINE 1% MPF 5 ML VIAL ONE (16:33)
--- NOTE | 2024-07-21 16:38 | P.OP ---
Preoperative diagnosis: RIGHT Hip Necrotic Wound Postoperative diagnosis: RIGHT Hip Necrotic Wound Primary procedure: Debridement of RIGHT Hip Necrotic Wound Anesthesia: GETA + Local Estimated blood loss: <10cc Specimen: Cultures, Debridement Tissue Findings: 15cm x 10cm down to femur / trocanter Complications: None Implants: [employer] x 2 Transferred to: Recovery Room Condition: Good
[2024-07-21] MEDS: FENTANYL CITR 100 MCG/2 ML ONE (16:53)
--- NOTE | 2024-07-21 20:06 | OP ---
Date of Procedure: 07/21/2024 Surgeon: Fabiano Peñaloza MD, Preoperative Diagnosis: Right hip necrotic wound. Postoperative Diagnosis: Right hip necrotic wound. Procedure Performed: Debridement of right hip necrotic wound. Anesthesia: General endotracheal plus local with 1% lidocaine with epinephrine. Estimated Blood Loss: Less than 2 cc. Specimen: Culture sent for both aerobic and anaerobic speciation and debridement of tissue. Findings: Approximately 15 cm x 10 cm necrotic wound to the right hip/femur trochanter area extendin g all the way to the fascia overlying the bone itself. Complications: None. Implants: Adaptic x2 sheaths were utilized. Disposition: The patient was transferred to recovery room in good condition. Procedure In Detail: After informed consent was obtained, patient was brought to the operating room, prepped and draped in the usual sterile fashion, after adequate anesthesia was achieved. I used a c ombination of scalpel and electrocautery to circumferentially dissect an area of black wet necrotic t issue with significant foul odor consistent with a gram-negative infection circumferentially around a n area of obviously demarcated necrotic tissue. Using the above methods, I ultimately removed a cone of necrotic soft tissue, muscle, fascia, nerve and soft tissue connections ultimately leading to the tissue overlying the trochanter. Anatomic structures were quite obscured in many degrees due to the significant necrosis as this was black and liquified necrotic tissue in this area for approximately 15 cm x 10 cm opening all the way to the fascia overlying the muscle consistent with a combination of pressure affecting contamination. I cultured for both aerobic and anaerobic speciation after all ne crotic tissue was removed. I used a pulse lavage device to irrigate the area and scrub the area with approximately 3 L of sterile saline until the area was adequately cleansed. Hemostasis was achieved with minimal electrocautery. At this point, I then placed 2 sheets of Adaptic to protect the bone a nd fascial structures ultimately lying a piece of Kerlix damp to dry and sterile dressing was placed over top. The patient tolerated the procedure well without incident or complication, transferred to PACU in good condition. All counts were correct at the end of the case. ELLA/DAVIDL Voice ID: [id number] Report ID: [id number]
[2024-07-21] MEDS: ENSURE HIGH PROTEIN 237 ML CAN PO SCH (21:00)
[2024-07-21] MEDS: JUVEN PACKET PO SCH (21:00)
[2024-07-21] MEDS: CHLORASEPTIC LOZENGES PO PRN (21:12)
[2024-07-21] MEDS: FAMOTIDINE 20 MG TAB PO SCH (21:15)
[2024-07-21] MEDS: ATORVASTATIN 20 MG TAB PO SCH (21:15)
[2024-07-21] MEDS: CHOLESTYRAMINE/ASP 4 GM/PKT PO SCH (21:15)
[2024-07-22] MEDS: HYDROCODONE/APAP 5/325 MG TAB PO PRN (05:25)
[2024-07-22 07:35] LABS: Absolute Eosinophils 0.2 K/uL (0-0.5); Absolute Lymphocytes (CBC) 0.7 K/uL (0.7-4.9); Absolute Monocytes 0.9 K/uL (0.1-1.3); Absolute Neutrophil 6.8 K/uL (1.8-8.0); Basophils % 0.4 % (0-1.3); Eosinophils % 2.6 % (0-4.4); Hematocrit 27.7 % (39.6-49.0); Hemoglobin 8.9 g/dL (13.6-17.9); Lymphocytes % 8.4 % (15.3-44.8); MCH 30.2 pg (27.0-35.0); MCHC 32.2 g/dL (32.0-36.0); MCV 93.7 fL (80-100); MPV 7.5 fL (7.6-11.3); Monocytes % 10.7 % (3.3-12.3); Neutrophils % 77.9 % (41.7-73.7); Platelets 328 thou/uL (152-406); RBC Red Blood Cell Count 2.95 M/uL (4.33-5.43); Red Cell Distribution Width 14.8 % (12.1-15.2)
[2024-07-22 07:42] LABS: Anion Gap 10.3 mEq/L (5.0-15.0); Potassium 3.3 mEq/L (3.5-5.1)
[2024-07-22] MEDS: Levofloxacin 750mg IV 750 MG/150 ML BAG IV SCH (08:35)
[2024-07-22] MEDS: POLYETHYL GLY 3350 17 GM/DOSE PO ONE (08:36)
[2024-07-22] MEDS: ONDANSETRON 4 MG/2 ML VIAL IV PRN (10:20)
--- NOTE | 2024-07-22 12:31 | P.PN ---
Date of Service: 07/22/24 Subjective: Vomiting this morning after breakfast Has cake and cupcakes at bedside Denies abdominal pain Reports constipation ROS: 10 point ROS as noted above, otherwise negative Physical exam GEN: Alert, oriented, NAD HEENT: Normal conjunctiva, sclera anicteric CV: Regular rate and rhythm, no edema Pulm: Nonlabored respirations on room air ABD: Soft, nontender, nondistended, suprapubic catheter in place MSK: No joint tenderness Integumentary: Large right gluteal pressure ulcer with necrotic tissue present Neuro: Normal speech, normal affect Vitals reviewed Assessment: Large right gluteal pressure ulcer-unstageable S/P debridement 07/21 Mild dysphagia Nausea and vomiting Elevated lactate Diabetes mellitus type [id number]-ddhzdprjw CKD 3 Hypertension Hyperlipidemia Plan: Large right gluteal pressure ulcer-unstageable S/P debridement 07/21 Continue broad-spectrum antibiotics with vancomycin/Levaquin given penicillin allergy Underwent debridement with general surgery 07/21 No signs of osteomyelitis noted on CT No SIRS criteria present currently Blood cultures obtained in ED no growth in 24 hours Await wound cultures further recs from general surgery/ Mild dysphagia Reported by nursing staff with morning medications Speech therapy consulted Nausea and vomiting Started after breakfast 07/22 KUB ordered No abdominal pain or tenderness on exam Does report constipation, has had similar episodes in the past Cake and cupcakes at bedside which patient had been eating which may have contributed N.p.o. aside from sips of water and ice chips until symptoms improved/KUB is returned Elevated lactate Improved with IV fluids Possibly secondary to dehydration No sepsis/severe sepsis at this time Diabetes mellitus type 2oll-ifhvfex-ctmfhjxbu Monitor glucose with labs daily If blood sugar persistently elevated consider adding Accu-Cheks Does not appear to be on any medications at the [facility] for his diabetes CKD 3 Continue gentle IV fluids, monitor daily chemistry Improved with IV fluids Consider nephrology consultation if there is worsening Hypertension Hyperlipidemia Home medications continued DVT PPX: lovenox Code status: Full Discharge Plan: [facility] Plan to discharge in: Greater than 2 days Time Spent Managing Pts Care (In Minutes): 35
[2024-07-22] MEDS: PROMETHAZINE INJ 25 MG/ML AMP IV ONE (12:48)
--- NOTE | 2024-07-22 14:32 | RAD REPORT ---
EXAM DESCRIPTION: RAD - Abdomen 1 View (KUB) - 07/22/2024 2:27 pm CLINICAL HISTORY: vomiting Pain COMPARISON: Abdomen 1 View (KUB) dated 05/17/2024 FINDINGS: Diffuse gaseous distention of both large and small bowel is present in non organized patte rn compatible with diffuse adynamic ileus. No suspicious calcifications. Hardware is present lower lumbar spine. IMPRESSION: Moderate diffuse adynamic ileus is present.
--- NOTE | 2024-07-22 14:45 | EKG ---
Test Date: 2024-07-20 Test Time: 16:35:27 Cartographic Drafter: KALPESH MEASUREMENT RESULTS: Intervals: Rate: 76 WA: QRSD: 118 QT: 484 QTc: 544 [place]: P: WA: QRS: 18 T: 26 INTERPRETIVE STATEMENTS: Accelerated Junctional rhythm Left ventricular hypertrophy with QRS widening Nonspecific ST and T wave abnormality Prolonged QT Abnormal ECG Compared to ECG 05/12/2024 12:58:51 Accelerated junctional rhythm now present ST (T wave) deviation now present Prolonged QT interval now present Sinus rhythm no longer present First degree AV block no longer present Electronically Signed On 07-22-24 14:41:34 CDT by Ba Calles
[2024-07-22] MEDS: NA CHLORIDE 0.9% 1,000 ML IV SCH ×2 (16:05→16:50)
[2024-07-22] MEDS: NA CHLORIDE 0.9% 500 ML IV ONE (17:22)
[2024-07-23] MEDS: ACETAMINOPHEN 325 MG TABLET PO PRN (01:00)
[2024-07-23] MEDS: PROMETHAZINE INJ 25 MG/ML AMP IV PRN (02:49)
[2024-07-23 05:29] LABS: Absolute Basophils 0.1 K/uL (0-0.5); Absolute Eosinophils 0.1 K/uL (0-0.5); Absolute Lymphocytes (CBC) 0.6 K/uL (0.7-4.9); Absolute Neutrophil 10.2 K/uL (1.8-8.0); Basophils % 0.4 % (0-1.3); Eosinophils % 0.5 % (0-4.4); Hematocrit 28.7 % (39.6-49.0); Hemoglobin 9.2 g/dL (13.6-17.9); Lymphocytes % 5.3 % (15.3-44.8); MCH 30.3 pg (27.0-35.0); MCV 94.8 fL (80-100); MPV 7.6 fL (7.6-11.3); Monocytes % 8.4 % (3.3-12.3); Neutrophils % 85.4 % (41.7-73.7); Platelets 334 thou/uL (152-406); RBC Red Blood Cell Count 3.03 M/uL (4.33-5.43); Red Cell Distribution Width 15.3 % (12.1-15.2)
[2024-07-23 05:46] LABS: Albumin 1.8 g/dL (3.4-5.0); Albumin/Globulin Ratio 0.4 (1.1-1.8); Anion Gap 10.1 mEq/L (5.0-15.0); Bilirubin Total 0.3 mg/dL (0.2-1.0); Globulin 4.7 g/dL (2.3-3.5); Potassium 3.1 mEq/L (3.5-5.1); Protein, Total 6.5 g/dL (6.4-8.2)
[2024-07-23] MEDS: KCL 20 MEQ/100 mL IVPB 20 MEQ/100 ML BAG IV SCH (07:01)
[2024-07-23] MEDS ORDERED: SODIUM CHLORIDE 0.9% 10ML INJ IV PRN (07:23)
[2024-07-23 07:31] LABS: Band Neutrophils 1 % (0-1); Differential Total Cells Count 100; Lymphocytes 6 % (15-42); Segmented Neutrophils 86 % (40-80)
[2024-07-23 07:32] LABS: Blood Morphology Comment NOTED (NOT SEEN); Hypochromasia 1+; Monocytes 7 % (0-10); Platelet Estimate ADEQ
--- NOTE | 2024-07-23 07:44 | RAD REPORT ---
EXAM DESCRIPTION: RAD - Abdomen 1 View (KUB) - 07/23/2024 6:09 am CLINICAL HISTORY: Abdomen pain FINDINGS: Loop of bowel mid lateral right pelvis measures approximately 10.3 centimeters and has increased size Otherwise, moderate dilatation of small bowel without significant change probably an ileus
--- NOTE | 2024-07-23 07:47 | RAD REPORT ---
EXAM DESCRIPTION: RAD - Abdomen 1 View (KUB) - 07/23/2024 7:11 am CLINICAL HISTORY: Device placement nasogastric tube placement FINDINGS: The tip of a nasogastric tube lies 7 centimeters into the stomach
[2024-07-23] MEDS: POLYETHYL GLY 3350 17 GM/DOSE PO SCH (09:00)
[2024-07-23] MEDS: ENOXAPARIN 40 MG/0.4 ML SQ SCH (09:24)
[2024-07-23] MEDS: PANTOPRAZOLE 40 MG INJ IVP SCH (09:24)
[2024-07-23] MEDS: PHENOL 1.4% ORAL SPRAY 180ML MM PRN (11:23)
--- NOTE | 2024-07-23 11:23 | P.PN ---
Date of Service: 07/23/24 Subjective: Patient reports multiple episodes of emesis over the past 24 hours. Reports improvement in abdominal pain. NGT placed this morning. ROS: 10 point ROS as noted above, otherwise negative Physical exam GEN: Alert, oriented, NAD HEENT: Normal conjunctiva, sclera anicteric. NGT right nare. CV: Regular rate and rhythm, no edema Pulm: Nonlabored respirations on room air ABD: Soft, mild diffuse abdominal tenderness. Hypoactive bowel sounds. suprapubic catheter in place MSK: No joint tenderness. Bedbound Integumentary: Large right gluteal pressure ulcer dressing intact. Vitals reviewed Assessment: Large right gluteal pressure ulcer-unstageable S/P debridement 07/21 Adynamic Ileus Mild dysphagia Nausea and vomiting Elevated lactate Diabetes mellitus type [id number] CKD 3 Hypertension Hyperlipidemia Plan: Large right gluteal pressure ulcer-unstageable S/P debridement 07/21 -Continue broad-spectrum antibiotics with vancomycin/Levaquin given penicillin allergy -Underwent debridement with general surgery 07/21 -No definitive signs of osteomyelitis noted on CT -Blood cultures obtained in ED no growth in 48 hours -Superficial wound culture 07/20 growing Proteus mirabilis. -Abscess culture obtained from debridement on 07/21 pending, follow-up with results Adynamic Ileus Nausea and vomiting -Nausea and vomiting began on 07/22 -KUB 07/22: Moderate diffuse adynamic ileus is present. -N.p.o. - continue IV hydration -NGT placed 07/23. Low intermittent suction. -Repeat KUB Mild dysphagia Reported by nursing staff with morning medications 07/22 Speech therapy consulted Elevated lactate 2.1 -> 2.7 ->1.7 Improved with IV fluids Possibly secondary to dehydration Diabetes mellitus type 9izp-outueuk-krzxiweiw Monitor glucose with labs daily If blood sugar persistently elevated consider adding Accu-Cheks Does not appear to be [facility] any medications [facility] the [facility] for his diabetes CKD 3 monitor daily chemistry Improved with IV fluids Consider nephrology consult if worsening Hypertension Hyperlipidemia Home medications continued DVT PPX: lovenox Code status: Full Discharge Plan: Senior Living Plan to discharge in: Greater than 2 days <Analilia Harrington - Last Filed: 07/23/24 18:22> Patient seen and examined on morning rounds with [employer] Juany. Agree with plan of care as noted above. In addition: Patient seen multiple times throughout the day. Reported slight improvement after NGT placed to LIWS Later in the morning/early afternoon, he flagged for sepsis with SIRS: WBC, tachycardia, tachypnea. Lactate was check by nurse per protocol and was noted to be 4. At that time I re-evaluated the patient - he reported passing flatus and feeling slightly better, slight tachycardia. Cultures obtained. Given sepsis bolus. Suspect elevated lactate secondary lactate surge after reperfusion - review of imaging - large/distned bowel loops, at risk of vascular compromise In addition, nursing staff reported black/coffee ground emesis prior to NGT placement. Black output from NGT noted. check CBC later today start PPI BID IV broaden abx - switch levaquin to merrem. continue vanc transfer to ICU for further / closer monitoring. Critical care time: 35 minutes <Adrian Herring - Last Filed: 07/23/24 22:19>
--- NOTE | 2024-07-23 12:15 | P.PN ---
Subjective Date of Service: 07/23/24 Chief Complaint: Gluteal pressure ulcer Subjective: Worsening (Patient had worsening nausea vomiting yesterday he states this has been present since postprocedurally and continues to have nausea vomiting and has not passed gas with some diffuse abdominal pain generally. He had an NG tube placed last night which gave him significant symptomatic improvement.) Physical Examination - Vital Signs Temperature: 97.7 F Blood Pressure: 143/80 Pulse: 98 Respirations: 26 Pulse Ox (%): 91 - Physical Exam General: Alert, Oriented x3, Cooperative, Mild distress HEENT: Other (NG tube placed) Respiratory: Diminished Cardiovascular: Regular rate/rhythm Gastrointestinal: Other (Soft mild global tenderness to palpation, no rebound no guarding no focal peritonitis, mild tympany) Integumentary: Other (Right hip wound remains clean without evidence of necrotizing soft tissue infection at this point it is well packed currently without bleeding.) Assessment And Plan - Current Problems (Diagnosis) (1) Gas gangrene Current Visit: Yes Status: Acute Plan: Patient is status post debridement of his right hip on 07/21/2024 -Continue daily dressing changes with Adaptic, Santyl, Vashe damp to dry, pressure reduction strategies with no pressure on this right hip area. -Continue antibiotic coverage -Serial abdominal exams -Continue NG tube decompression. -Check prealbumin and C-reactive protein as patient appears he may have some nutritional deficit, may recommend TPN and PICC line if his p.o. status will not meet his nutritional goals in the near future. -Continue medical management per primary team. (2) Adynamic ileus Current Visit: Yes Status: Acute
--- NOTE | 2024-07-23 12:57 | CON ---
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 He was transferred from the facility as it bec [place] foul smelling and was not responding to their level of wound care treatment at that site. The pa richie had complaints of pain in this area and some minimal other complaints with respect to his pre-e xisting medical conditions such as intermittent GERD, some constipation alternating with diarrhea at times, but not particularly on this occasion and there was no soilage of his wound by his description . Past Medical History: Significant for diabetes, hypertension, GERD, alternating diarrhea, constipati on, urinary retention with a suprapubic catheter in place, CKD stage 3, hyperlipidemia. Past Surgical History: Included suprapubic catheter placement, knee surgery, and back surgery. Allergies: TO PENICILLIN. Home Medications: Include alendronate, Tylenol, fexofenadine, Ultram, Eliquis, Lipitor, Questran, Ce harsh, Senokot, Fleet's enemas, Ensure max protein, Pepcid, gabapentin, insulin, lidocaine, Imodium, M edihoney, Megace, melatonin, methenamine, metoprolol, Singulair, multivitamin, nystatin powder, Zofra n, Protonix, Klor-Con, Phenergan syrup, Mylicon, Vicks VapoRub. Social History: He lives at [facility]. He denies smoking, alcohol, or recreational drug use. Review of Systems: Ten-point review of systems other than HPI, denies. Physical Examination: General: At the time of my examination, he is awake, alert, and oriented. Psychiatric: Appropriate and conversive. HEENT: He is normocephalic. His sclerae are anicteric. His mucous membranes are moist. His oropha rynx is clear. Neck: Supple without JVD. Chest: Normal expansion and excursion. Cardiovascular: Regular rate and rhythm. Pulmonary: Clear to auscultation bilaterally. Abdomen: Soft with mild global tenderness to palpation. No rebound. No guarding. No focal periton itis appreciated. Extremities: Focused examination of the right hip area shows a large approximately 15 cm necrotic wo und with foul odor and wet gangrenous changes with obvious muscle emanating from here and absces s like material draining from this space. Vital Signs: At the time of my examination were blood pressure 116/45, pulse is 94, respiratory rate 20, temperature 97.7, O2 sats 94% on room air. Imaging Data: He had a CT of this area, which is officially read on 07/20/2024 as there was a large deep right-sided lateral soft tissue ulceration, appears to extend to the level of the greater trocha nter on the right proximal femur. Definite osteomyelitis findings are not seen at this time. Assessment And Plan: This is an 88-year-old man, who comes in with a significant infection/pressure ulceration to the right hip with necrosis and gangrene changes and abscess like material. 1.IV fluid hydration. 2.Antibiotic coverage. 3.Medical optimization. 4.I have explained risks, benefits, and alternatives of surgical debridement of this area including, but not limited to bleeding, infection, damage to surrounding tissues, injury to nerves, need for fu rther operation and procedures. 5.We will continue medical management and assessment of his gastrointestinal complaints to see if th is is a sepsis related concomitant finding, likely due to his primary source of sepsis, which would b e the right hip at this point. 6.The patient will be taken to the operating room for the above-stated surgical procedure after conv ersation with the patient and he agreed to proceed as indicated. Thank you for this interesting consult. ELLA/ROBERT Voice ID: [id number] Report ID: [id number]
[2024-07-23] MEDS: LIDOCAINE JELLY 2%- 5 ML TUBE TOP ONE (14:12)
[2024-07-23] MEDS: Meropenem 1,000 MG in NA CHLORIDE 0.9% 100 ML IV SCH ×2 (14:16→21:48)
[2024-07-23] MEDS: SODIUM CHL 0.9% 1000 ML BAG IV ONE (14:50)
--- NOTE | 2024-07-23 15:21 | RAD REPORT ---
EXAM DESCRIPTION: RAD - Abdomen 1 View (KUB) - 07/23/2024 2:36 pm CLINICAL HISTORY: Device placement nasogastric tube placement FINDINGS: The tip of a nasogastric tube lies within the gastric fundus
[2024-07-23 18:37] LABS: Specific Gravity 1.016 (1.005-1.030); Sqamous Epithelial None Seen /HPF (None Seen); Urine Bacteria <20 /HPF (<20); Urine Bilirubin NEGATIVE (Negative); Urine Blood Trace (Negative); Urine Clarity Extremely Turbid (Clear); Urine Color Light-Yellow (Yellow); Urine Crystals Unidentified Few /HPF (None Seen); Urine Culture Reflex Order NOT NEEDED; Urine Glucose TRACE (Negative); Urine Ketones TRACE (Negative); Urine Microscopic Reflex YN ORDER UMIC; Urine Mucus Slight /HPF (None Seen); Urine Nitrite NEGATIVE (Negative); Urine Protein 1+ (Negative); Urine RBC <5 /HPF (None Seen); Urine Urobilinogen Normal (Normal); Urine WBC <5 /HPF (<5); Urine pH 5.5 (5.0-7.0)
--- NOTE | 2024-07-23 18:41 | P.INFCA ---
Sepsis Focused Assessment - Focused Assessment Complete? Sepsis Focused Assessment Completed?: Yes - Sepsis Screen Result Severe Sepsis: Negative Septic Shock: Positive (initial screen positive. at this time, current screen negative for septic shock) - Evaluation Current stage of sepsis: Ruled out Reason for ruling out sepsis: less likely infection, suspect lactate surge from bowel reperfusion - Vital Signs Reviewed: Yes Temperature: 97.0 F Heart rate: 108 Blood Pressure: 141/66 Respiratory Rate: 24 O2 Sat by Pulse Oximetry: 91 - Examination Date exam was performed: 07/23/24 Time exam was performed: 14:30 Heart: Tachycardia (90-105) Lungs: Decreased breath sounds (at bases), Other (nonlabored) Peripheral pulses: 3+ Normal Peripheral pulse location: Radial Capillary refill: <2 Seconds Skin examination: Normal turgor, Not mottled Comments: received sepsis bolus
[2024-07-23 18:45] LABS: Albumin 1.6 g/dL (3.4-5.0); Albumin/Globulin Ratio 0.4 (1.1-1.8); Anion Gap 11.1 mEq/L (5.0-15.0); Bilirubin Total 0.2 mg/dL (0.2-1.0); Globulin 4.2 g/dL (2.3-3.5); Potassium 4.1 mEq/L (3.5-5.1); Protein, Total 5.8 g/dL (6.4-8.2)
[2024-07-23 19:04] LABS: Hematocrit 26.9 % (39.6-49.0); Hemoglobin 8.3 g/dL (13.6-17.9); MCH 29.8 pg (27.0-35.0); MCHC 30.9 g/dL (32.0-36.0); MCV 96.6 fL (80-100); MPV 7.9 fL (7.6-11.3); Platelets 320 thou/uL (152-406); RBC Red Blood Cell Count 2.79 M/uL (4.33-5.43); Red Cell Distribution Width 15.7 % (12.1-15.2)
[2024-07-23] MEDS: SODIUM BICARB 50 MEQ/50ML VIAL ONE (22:06)
[2024-07-23] MEDS: NACHLORIDE 0.45% 1,000 ML with NA BICARB 8.4% 100 MEQ IV SCH (22:43)
[2024-07-23] MEDS: NACHLORIDE 0.45% 1,000 ML IV ONE (23:04)
[2024-07-23 23:33] LABS: Hematocrit 25.5 % (39.6-49.0)
[2024-07-24 05:40] LABS: Absolute Basophils 0.1 K/uL (0-0.5); Absolute Eosinophils 0.1 K/uL (0-0.5); Absolute Monocytes 1.1 K/uL (0.1-1.3); Absolute Neutrophil 12.4 K/uL (1.8-8.0); Basophils % 0.4 % (0-1.3); Eosinophils % 0.5 % (0-4.4); Hematocrit 26.8 % (39.6-49.0); Hemoglobin 8.2 g/dL (13.6-17.9); MCH 29.5 pg (27.0-35.0); MCHC 30.7 g/dL (32.0-36.0); MCV 96.2 fL (80-100); MPV 7.8 fL (7.6-11.3); Monocytes % 7.3 % (3.3-12.3); Neutrophils % 84.8 % (41.7-73.7); Nucleated Red Blood Cells % 0.1 % (0-0); Platelets 321 thou/uL (152-406); RBC Red Blood Cell Count 2.79 M/uL (4.33-5.43); Red Cell Distribution Width 15.5 % (12.1-15.2)
[2024-07-24 05:58] LABS: Albumin 1.7 g/dL (3.4-5.0); Albumin/Globulin Ratio 0.4 (1.1-1.8); Anion Gap 9.6 mEq/L (5.0-15.0); Bilirubin Total 0.3 mg/dL (0.2-1.0); Globulin 4.8 g/dL (2.3-3.5); Magnesium 1.8 mg/dL (1.6-2.4); Potassium 3.6 mEq/L (3.5-5.1); Prealbumin 8.2 mg/dL (20-40); Protein, Total 6.5 g/dL (6.4-8.2)
[2024-07-24] MEDS: KCL 20 MEQ/100 mL IVPB 20 MEQ/100 ML BAG IV SCH ×2 (08:09→09:03)
[2024-07-24] MEDS ORDERED: D10W 125 ML IV PRN (08:30)
[2024-07-24] MEDS ORDERED: GLUCAGON 1 MG/VIAL IM PRN (08:30)
[2024-07-24] MEDS: Mupirocin NASAL 2 APPL/1 GM TUBE NAS SCH (08:58)
[2024-07-24] MEDS: LIDOCAINE 4% PATCH TOP SCH (09:02)
--- NOTE | 2024-07-24 09:05 | RAD REPORT ---
EXAM DESCRIPTION: RAD - Abdomen 1 View (KUB) - 07/24/2024 8:42 am CLINICAL HISTORY: eval ileus Pain COMPARISON: Abdomen 1 View (KUB) dated 07/23/2024; Abdomen 1 View (KUB) dated 07/23/2024; Abdomen 1 Vi ew (KUB) dated 07/23/2024; Abdomen 1 View (KUB) dated 07/22/2024 FINDINGS: Tip of the enteric tube is in the stomach. Multiple dilated bowel loops are present in the abdomen involving both small and large bowel. Hardware is present lower lumbar spine. IMPRESSION: Oxqa-gx-dnjuoqqe diffuse ileus pattern is seen, mildly improved since yesterday's study
--- NOTE | 2024-07-24 09:06 | RAD REPORT ---
EXAM DESCRIPTION: RAD - Chest Single View - 07/24/2024 8:43 am CLINICAL HISTORY: eval pulm edema/effusions Chest pain. COMPARISON: Abdomen 1 View (KUB) dated 07/23/2024; Abdomen 1 View (KUB) dated 07/23/2024; Abdomen 1 Vi ew (KUB) dated 07/23/2024; Abdomen 1 View (KUB) dated 07/22/2024 FINDINGS: Portable technique limits examination quality. Significant underinflation of lungs with vascular crowding. Tip of the enteric tube is likely in the stomach. Multiple dilated gas-filled bowel loops in the upper abdomen appear unchanged since yesterda y's study. Cardiac size is mildly enlarged. IMPRESSION: Underinflation of the lungs is seen significant vascular crowding. Enteric tube tip is l ikely in the stomach.
--- NOTE | 2024-07-24 09:22 | P.PN ---
Date of Service: 07/24/24 Subjective: Patient was transferred to ICU 07/23. Positive sepsis screen with elevated HR, RR, lactic acid 4.1, WBC 16.8. He received sepsis bolus. Antibiotics escalated from Levaquin to meropenem; vancomycin continued. Repeat lactic acid 2 ; WBC 14.6. Urinalysis not suggestive of UTI. Repeat blood cultures obtained, pending. ROS: + neck and bilateral shoulder pain. Reports some improvement in abdominal tenderness. 10 point ROS as noted above, otherwise negative Physical exam GEN: Alert, oriented, NAD HEENT: Normal conjunctiva, sclera anicteric. NGT right nare. Neck: supple, no JVD. CV: Regular rate and rhythm, no edema. Peripheral pulses normal. Pulm: On 2 L nasal cannula, unlabored respirations. Decreased breath sounds at bases bilaterally. ABD: Soft, nontender, nondistended. Hypoactive bowel sounds. suprapubic catheter in place MSK: No joint tenderness. Bedbound. Integumentary: Large right gluteal pressure ulcer s/p debridement, dressing intact. 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 Peñaloza on 07/21. Findings: 15cm x 10cm down to femur / trocanter -No definitive signs of osteomyelitis noted on CT -Blood cultures 07/20: no growth to date -Superficial wound culture 07/20 growing Proteus mirabilis; resistant to bactrim, ciprofloxacin. -Abscess culture 07/21 obtained during debridement: Proteus mirabilis -Continue meropenem and vancomycin for now. -Blood cultures 07/23: Pending Adynamic Ileus Nausea, Vomiting -Nausea and vomiting began on 07/22 -KUB 07/22: Moderate diffuse adynamic ileus is present. -NGT placed 07/23. Low intermittent suction. -KUB 07/24: Zmwb-kw-clqhfvus diffuse ileus pattern is seen, mildly improved since yesterday's study -N.p.o. - continue IV fluids Elevated lactate -2.1 -> 2.7 ->1.7. Improved with IV fluids Lactic acid on 07/23 of 4.1. Received fluid bolus. repeat lactic acid 2. Mild dysphagia Reported by nursing staff with morning medications 07/22 Aspiration precautions Diabetes mellitus type 3mln-hzlqavs-pqrgokcnb Monitor glucose with labs daily If blood sugar persistently elevated consider adding Accu-Cheks Does not appear to be on any medications at the retirement for his diabetes CKD 3 monitor daily chemistry Improved with IV fluids Consider nephrology consult if worsening Hypertension, currently hypotensive Hyperlipidemia - Continue home statin - Hold home BP meds for now, BP has been soft DVT PPX: lovenox Code status: Full Discharge Plan: Assisted Plan to discharge in: Greater than 2 days
[2024-07-24] MEDS: D5W 1,000 ML with NA BICARB 8.4% 100 MEQ IV SCH ×2 (09:26→17:00)
[2024-07-24] MEDS ORDERED: WATER FOR INJ,STERILE 1,000 ML with NA BICARB 8.4% 100 MEQ IV SCH (10:00)
[2024-07-24] MEDS: MORPHINE 2 MG/ML SYR IV PRN (11:27)
[2024-07-24] MEDS: INSULIN REGULAR (HUMAN) 100 UNIT/ML SQ SCH (11:31)
[2024-07-24] MEDS: NA CHLORIDE 0.9% 500 ML IV ONE (13:42)
[2024-07-24] MEDS: COLLAGENASE 30 GM OINTMENT TOP ONE (13:47)
[2024-07-24] MEDS: COLLAGENASE 30 GM OINTMENT TOP SCH (13:58)
[2024-07-24] MEDS: LIDOCAINE JELLY 2%- 5 ML TUBE TOP PRN (13:59)
[2024-07-24] MEDS: ALBUMIN HUMAN 25% 50 ML IV ONE (14:01)
[2024-07-24 15:05] LABS: Absolute Eosinophils 0.1 K/uL (0-0.5); Absolute Lymphocytes (CBC) 0.8 K/uL (0.7-4.9); Absolute Monocytes 0.6 K/uL (0.1-1.3); Absolute Neutrophil 7.5 K/uL (1.8-8.0); Basophils % 0.2 % (0-1.3); Eosinophils % 0.9 % (0-4.4); Hematocrit 22.9 % (39.6-49.0); Hemoglobin 7.3 g/dL (13.6-17.9); Lymphocytes % 8.9 % (15.3-44.8); MCH 30.1 pg (27.0-35.0); MCHC 31.7 g/dL (32.0-36.0); MCV 94.8 fL (80-100); MPV 7.7 fL (7.6-11.3); Monocytes % 6.8 % (3.3-12.3); Neutrophils % 83.2 % (41.7-73.7); Nucleated Red Blood Cells % 0.1 % (0-0); Platelets 282 thou/uL (152-406); RBC Red Blood Cell Count 2.41 M/uL (4.33-5.43); Red Cell Distribution Width 15.4 % (12.1-15.2)
--- NOTE | 2024-07-24 15:22 | RAD REPORT ---
EXAM DESCRIPTION: RAD - Chest Single View - 07/24/2024 3:14 pm CLINICAL HISTORY: PICC line confirmation COMPARISON: Abdomen 1 View (KUB) dated 07/24/2024; Chest Single View dated 07/24/2024; Abdomen 1 View (K UB) dated 07/23/2024; Abdomen 1 View (KUB) dated 07/23/2024 FINDINGS: Portable chest was obtained following placement of a right upper extremity PICC line. The catheter tip projects over the right atrium. 2-3 cm of retraction may be considered for optimum place ment..
[2024-07-24 15:34] LABS: Albumin 1.6 g/dL (3.4-5.0); Albumin/Globulin Ratio 0.4 (1.1-1.8); Bilirubin Total 0.3 mg/dL (0.2-1.0); Protein, Total 5.6 g/dL (6.4-8.2)
[2024-07-24] MEDS: BISACODYL 10 MG RECTAL SUPP PR ONE (15:54)
[2024-07-24] MEDS: AA 5%/D20W/ELECTROLYTES-TPN 2,000 ML IV SCH ×2 (15:55)
[2024-07-24] MEDS ORDERED: NA CHLORIDE 0.9% 250 ML IV SCH (18:00)
[2024-07-24] MEDS: MORPHINE 2 MG/ML SYR IV ONE (21:09)
[2024-07-24] MEDS: NA CHLORIDE 0.9% 250 ML ONE (22:35)
[2024-07-25] MEDS: NA CHLORIDE 0.9% 500 ML IV ONE (03:43)
[2024-07-25 04:21] VITALS: BMI 31.8
[2024-07-25 05:43] LABS: Hemoglobin 7.6 g/dL (13.6-17.9)
[2024-07-25 06:02] LABS: Albumin 1.7 g/dL (3.4-5.0); Albumin/Globulin Ratio 0.5 (1.1-1.8); Anion Gap 6.5 mEq/L (5.0-15.0); Bilirubin Total 0.3 mg/dL (0.2-1.0); Globulin 3.6 g/dL (2.3-3.5); Potassium 3.5 mEq/L (3.5-5.1); Protein, Total 5.3 g/dL (6.4-8.2)
[2024-07-25] MEDS: KCL 20 MEQ/100 mL IVPB 20 MEQ/100 ML BAG IV SCH (06:51)
--- NOTE | 2024-07-25 06:59 | RAD REPORT ---
EXAM DESCRIPTION: RAD - Chest Single View - 07/25/2024 5:52 am CLINICAL HISTORY: PICC replacedment, decreased lung sounds COMPARISON: Chest Single View dated 07/24/2024; Abdomen 1 View (KUB) dated 07/24/2024; Chest Single View dated 07/24/2024; Abdomen 1 View (KUB) dated 07/23/2024 FINDINGS: Lines: Enteric tube overlies the stomach. Right subclavian approach PICC with tip overlyin g the SVC in satisfactory position. Lungs: Low lung volumes with mild increased opacities left lung base. Pleural: No significant pleural effusions or pneumothorax. Cardiac: Similar enlargement of the cardiac silhouette Mediastinum: Within normal limits. Bones: No acute fractures. Other: None IMPRESSION: Low lung volumes with mild increased left basilar airspace disease. Given the time cours e of development, this could reflect increased atelectasis. PICC in satisfactory position.
[2024-07-25] MEDS: NA CHLORIDE 0.9% 100 ML ONE (08:16)
[2024-07-25] MEDS: INSULIN GLARGINE 100 UNIT/ML SQ SCH (09:31)
[2024-07-25 10:28] LABS: Absolute Eosinophils 0.1 K/uL (0-0.5); Absolute Lymphocytes (CBC) 0.8 K/uL (0.7-4.9); Absolute Monocytes 0.7 K/uL (0.1-1.3); Absolute Neutrophil 6.4 K/uL (1.8-8.0); Basophils % 0.5 % (0-1.3); Eosinophils % 1.6 % (0-4.4); Hematocrit 28.6 % (39.6-49.0); Hemoglobin 9.3 g/dL (13.6-17.9); Lymphocytes % 10.3 % (15.3-44.8); MCH 30.5 pg (27.0-35.0); MCHC 32.6 g/dL (32.0-36.0); MCV 93.7 fL (80-100); MPV 7.6 fL (7.6-11.3); Monocytes % 8.7 % (3.3-12.3); Neutrophils % 78.9 % (41.7-73.7); Nucleated Red Blood Cells % 0.1 % (0-0); Platelets 250 thou/uL (152-406); RBC Red Blood Cell Count 3.05 M/uL (4.33-5.43)
[2024-07-25 11:33] LABS: Differential Total Cells Count 100; Eosinophils 1 % (0-3); Lymphocytes 10 % (15-42); Monocytes 7 % (0-10); Segmented Neutrophils 82 % (40-80); Toxic Granulation NOTED
[2024-07-25 11:34] LABS: Blood Morphology Comment NOT SEEN (NOT SEEN); Platelet Estimate ADEQ
--- NOTE | 2024-07-25 12:37 | P.PN ---
Date of Service: 07/25/24 Subjective: Awake and very uncomfortable, very thirsty. Will plan to clamp NGT for six hours 10 point ROS as noted above, otherwise negative Physical exam GEN: AAO x 3, NAD, uncomfortable HEENT: Normal conjunctiva, sclera anicteric. NGT right nare. Neck: supple, trachea midline, no JVD CV: RRR, no edema. Peripheral pulses normal, tachycardia Pulm: Decreased breath sounds at bases bilaterally, symmetrical chest wall movement, on RA ABD: Soft on palpation, ND/NT, Hypoactive bowel sounds. suprapubic catheter in place MSK: No joint tenderness. Bedbound. Integumentary: Large right gluteal pressure ulcer s/p debridement, dressing intact. 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 Peñaloza on 07/21. Findings: 15cm x 10cm down to femur / trocanter -No definitive signs of osteomyelitis noted on CT -Blood cultures 07/20: no growth to date -Superficial wound culture 07/20 growing Proteus mirabilis; resistant to bactrim, ciprofloxacin. -Abscess culture 07/21 obtained during debridement: Proteus mirabilis -Continue meropenem and vancomycin for now. -Blood cultures 07/23: Gram positive Rods to one vial Anemia Severe Malnutrition Hypoalbuminemia/hypoprealbumin -H/H 7.6/24.0 s/p one unit PRBC 07/25 0455 -One unit PRBC today 07/25 -Albumin 1.7/prealbumin 8.2 -TPN until PO intake has improved Adynamic Ileus Nausea, Vomiting -Nausea and vomiting began on 07/22 -KUB 07/22: Moderate diffuse adynamic ileus is present. -NGT placed 07/23. Low intermittent suction. -KUB 07/24: Ivqy-ep-ilthuadl diffuse ileus pattern is seen, mildly improved since yesterday's study -NPO, with small amt sips of water -continue IV fluids Elevated lactate -2.1 -> 2.7 ->1.7. Improved with IV fluids -Lactic acid on 07/23 of 4.1. Received fluid bolus. repeat lactic acid 2. -Lactic acid 2.3, repeat 1.6 -Continue IVF Mild dysphagia -Reported by nursing staff with morning medications 07/22 -Aspiration precautions Diabetes mellitus type 5fff-tafqtqn-ojptadygm -Serum glucose -Accucheck with SSI, Semglee added -If blood sugar persistently elevated consider adding Accu-Cheks -Does not appear to be on any medications at the halfway for his diabetes CKD 3 -monitor daily chemistry -Improved with IV fluids -Consider nephrology consult if worsening Hypertension, currently hypotensive Hyperlipidemia - Continue home statin - Hold home BP meds for now, SBP 148 DVT PPX: lovenox Code status: Full Discharge Plan: Correction Plan to discharge in: Greater than 2 days
--- NOTE | 2024-07-25 13:28 | P.PN ---
Subjective Date of Service: 07/25/24 Chief Complaint: Gluteal pressure ulcer minimal impovement with some bowel movement last evening, less pain in abdomen and hip Physical Examination - Vital Signs Temperature: 97.6 F Blood Pressure: 148/58 Pulse: 98 Respirations: 20 Pulse Ox (%): 95 - Physical Exam General: Alert, In no apparent distress, Cooperative Respiratory: Clear to auscultation bilaterally Cardiovascular: Other (tachycardia) Gastrointestinal: Other (soft, mild TTP, mild distention, minimal tympany) Integumentary: Other (RIGHT open hip wound with slough, + moderate fibrinous buildup) Neurological: Normal speech Assessment And Plan - Current Problems (Diagnosis) (1) Gas gangrene Current Visit: Yes Status: Acute Plan: Patient is status post debridement of his right hip on 07/21/2024 -Continue daily dressing changes with Adaptic, Santyl, Vashe damp to dry, pressure reduction strategies with no pressure on this right hip area. -Continue antibiotic coverage -Serial abdominal exams -Continue NG tube decompression. -Check prealbumin and C-reactive protein as patient appears he may have some nutritional deficit, may recommend TPN and PICC line if his p.o. status will not meet his nutritional goals in the near future. -Continue medical management per primary team. (2) Adynamic ileus Current Visit: Yes Status: Acute
[2024-07-25] MEDS: AMINO ACIDS 5 %/DEXTROSE 20 % 2,000 ML, Lipids 20% 250 ML with MULTIVITAMINS INJ 10 ML IV SCH (16:24)
[2024-07-25] MEDS ORDERED: AA 5%/D20W/ELECTROLYTES-TPN 2,000 ML, Lipids 20% 250 ML with MULTIVITAMINS INJ 10 ML IV SCH (17:00)
[2024-07-26 05:45] LABS: Absolute Basophils 0.1 K/uL (0-0.5); Absolute Eosinophils 0.2 K/uL (0-0.5); Absolute Lymphocytes (CBC) 1.1 K/uL (0.7-4.9); Absolute Monocytes 0.7 K/uL (0.1-1.3); Absolute Neutrophil 5.3 K/uL (1.8-8.0); Basophils % 0.9 % (0-1.3); Eosinophils % 3.3 % (0-4.4); Hematocrit 30.2 % (39.6-49.0); Hemoglobin 9.4 g/dL (13.6-17.9); Lymphocytes % 15.2 % (15.3-44.8); MCH 29.2 pg (27.0-35.0); MCHC 31.2 g/dL (32.0-36.0); MCV 93.7 fL (80-100); MPV 7.9 fL (7.6-11.3); Monocytes % 9.6 % (3.3-12.3); Platelets 228 thou/uL (152-406); RBC Red Blood Cell Count 3.23 M/uL (4.33-5.43); Red Cell Distribution Width 15.8 % (12.1-15.2)
[2024-07-26 05:59] LABS: Anion Gap 7.3 mEq/L (5.0-15.0); Magnesium 1.7 mg/dL (1.6-2.4); Potassium 3.3 mEq/L (3.5-5.1)
[2024-07-26] MEDS: KCL 20 MEQ/100 mL IVPB 20 MEQ/100 ML BAG IV SCH (06:47)
[2024-07-26] MEDS: MAGNESIUM SULFATE 1 gm IVPB 1 GM/100 ML BAG IV ONE (09:16)
[2024-07-26] MEDS: LABETALOL 20 MG/4ML SYRINGE IV PRN (09:17)
--- NOTE | 2024-07-26 11:04 | P.PN ---
Date of Service: 07/26/24 Subjective: Awake, appears more comfortable this AM NGT clamped for six hours with 100 ml dark gastric juices returned Tachycardia this AM, will continue to monitor Moving to floor today 10 point ROS as noted above, otherwise negative Physical exam GEN: Awake, alert, and oriented x 3, NAD, uncomfortable HEENT: Normal conjunctiva, sclera anicteric. NGT right nare. Neck: supple, trachea midline, no JVD CV: Tachycardia, no edema, Peripheral pulses normal Pulm: Clear breath sounds bilaterally, symmetrical chest wall movement, on 1 LNC ABD: Soft on palpation, ND/NT, Hypoactive bowel sounds. suprapubic catheter in place MSK: No joint tenderness. Bedbound. Right hip dressing CDI Integumentary: Large right gluteal pressure ulcer s/p debridement, dressing intact. 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 Peñaloza on 07/21. Findings: 15cm x 10cm down to femur / trocanter -No definitive signs of osteomyelitis noted on CT -Blood cultures 07/20: no growth to date -Superficial wound culture 07/20 growing Proteus mirabilis; resistant to bactrim, ciprofloxacin. -Abscess culture 07/21 obtained during debridement: Proteus mirabilis -Continue meropenem and vancomycin -Blood cultures 07/23: Gram positive Rods to one vial -Dr. Duran consulted for detention antibiotics Anemia Severe Malnutrition Hypoalbuminemia/hypoprealbumin -Two units PRBC 07/25 -H/H 9./.2 -Albumin 1.7/prealbumin 8.2 -TPN until PO intake has improved Adynamic Ileus Nausea, Vomiting -Nausea and vomiting began on 07/22 -KUB 07/22: Moderate diffuse adynamic ileus is present. -NGT placed 07/23. Low intermittent suction. -KUB 07/24: Urze-va-vcfuurlb diffuse ileus pattern is seen, mildly improved since yesterday's study -NPO, with small amt sips of water -continue IV fluids -nurse reports BM overnight Elevated lactate -2.1 -> 2.7 ->1.7. Improved with IV fluids -Lactic acid on 07/23 of 4.1. Received fluid bolus. repeat lactic acid 2. -Lactic acid on 07/25 2.3, repeat 1.6 -Continue IVF Mild dysphagia -Reported by nursing staff with morning medications 07/22 -Aspiration precautions -NGT in place Diabetes mellitus type 6mqa-hdtssjf-injdvcykt -hyperglycemia, serum glucose 233 -Accucheck with SSI, Kiki added -Does not appear to be on any medications at the detention for his diabetes CKD 3 -monitor daily chemistry -Improved with IV fluids -BUN/creatinine 24/0.94 Hypertension, currently hypotensive Hyperlipidemia - Continue home statin - Hold home BP meds for now, SBP 148 DVT PPX: lovenox Code status: Full Discharge Plan: Penitentiary Plan to discharge in: Greater than 2 days
[2024-07-26] MEDS: AMINO ACIDS 5 %/DEXTROSE 20 % 2,000 ML IV SCH (18:22)
[2024-07-27 06:47] LABS: Absolute Eosinophils 0.2 K/uL (0-0.5); Absolute Lymphocytes (CBC) 1.2 K/uL (0.7-4.9); Absolute Monocytes 0.8 K/uL (0.1-1.3); Absolute Neutrophil 4.6 K/uL (1.8-8.0); Basophils % 0.7 % (0-1.3); Eosinophils % 3.5 % (0-4.4); Hematocrit 32.9 % (39.6-49.0); Hemoglobin 10.5 g/dL (13.6-17.9); Lymphocytes % 17.2 % (15.3-44.8); MCH 29.7 pg (27.0-35.0); MPV 8.1 fL (7.6-11.3); Monocytes % 11.5 % (3.3-12.3); Neutrophils % 67.1 % (41.7-73.7); Platelets 230 thou/uL (152-406); RBC Red Blood Cell Count 3.54 M/uL (4.33-5.43); Red Cell Distribution Width 15.5 % (12.1-15.2)
[2024-07-27 07:00] LABS: Anion Gap 8.5 mEq/L (5.0-15.0); Magnesium 1.7 mg/dL (1.6-2.4); Potassium 3.5 mEq/L (3.5-5.1)
[2024-07-27] MEDS: POTASSIUM 25 MEQ EFFERV TAB PO ONE (09:02)
[2024-07-27] MEDS: MAGNESIUM SULFATE 1 gm IVPB 1 GM/100 ML BAG IV ONE (09:03)
[2024-07-27 09:52] LABS: Atypical Lymphocytes 1 %; Band Neutrophils 3 % (0-1); Differential Total Cells Count 100; Eosinophils 3 % (0-3); Lymphocytes 19 % (15-42); Monocytes 8 % (0-10); Myelocytes 1 % (0-0); Segmented Neutrophils 65 % (40-80)
[2024-07-27 09:53] LABS: Blood Morphology Comment NOT SEEN (NOT SEEN); Platelet Estimate ADEQ
[2024-07-27] MEDS: POTASS/SODIUM PHOSPHATE 1 PKT POWD.PACK PO SCH (12:21)
--- NOTE | 2024-07-27 12:57 | P.CNS ---
Date of Consult: 07/27/24 Chief Complaint: Gluteal pressure ulcer History of Present Illness: Patient presented with gluteal abscess s/p detriment, cardiology consulted for tachycardia, patient denies chest pain, and no other cardiac symptoms. Allergies Penicillins Allergy (Verified 05/14/24 14:42) Hives Home medications list reviewed: Yes Home Medications: Alendronate Sodium 70 mg PO EVERY 7TH DAY 06/30/22 Acetaminophen [Tylenol] 2 tab PO Q6HP PRN 05/13/24 Fexofenadine HCl 180 mg PO DAILY 05/13/24 Tramadol HCl [Ultram] 50 mg PO BID 05/13/24 Atorvastatin Calcium [Lipitor*] 20 mg PO BEDTIME tab 05/25/24 Cholestyramine/Asp [Questran Light*] 4 gm PO BEDTIME packet 05/25/24 Citalopram [Celexa*] 20 mg PO DAILY 05/25/24 Famotidine [Pepcid*] 20 mg PO BEDTIME tab 05/25/24 Melatonin [Melatonin*] 3 mg PO BEDTIME PRN PRN 05/25/24 Methenamine 0.5 tab PO BID 05/25/24 Metoprolol Succinate [Toprol Xl*] 50 mg PO DAILY tab 05/25/24 Montelukast [Singulair*] 10 mg PO DAILY tab 05/25/24 Multivit,Ther Iron,Ca,FA & Min [Centrum Tablet*] 1 tab PO DAILY tab 05/25/24 Furosemide 20 mg PO BID 07/20/24 Loperamide [Imodium*] 2 mg PO Q12HR PRN 07/20/24 Mirtazapine 7.5 mg PO SEECOM 07/20/24 Omeprazole 20 mg PO DAILY 07/20/24 Ondansetron [Zofran (Odt)*] 4 mg PO Q8HR PRN 07/20/24 Promethazine/Dextrometh Syr [Phenergan Dm Oral Syrup*] 5 ml PO Q4HR PRN 07/20/24 Simethicone [Mylicon*] 2 tab PO Q6HP PRN 07/20/24 Vicks Vaporub Ointment 1 leander TOP DAILY PRN 07/20/24 - Past Medical/Surgical History Diabetic: Yes -: NIDDM2 -: HTN -: GERD -: chronic diarrhea -: urinary retention, s/p suprapubic catheter -: suprapubic catheter -: knee surgery -: back surgery Psychosocial/ Personal History: Lives at [facility] - Social History Smoking Status: Unknown if ever smoked Alcohol use: No CD- Drugs: No Caffeine use: Yes Place of Residence: [place] Review of Systems 10-point ROS is otherwise unremarkable Physical Examination Temp Pulse Resp BP Pulse Ox 97.3 F 130 H 15 152/66 H 93 07/27/24 08:00 07/27/24 09:24 07/27/24 12:20 07/27/24 09:24 07/27/24 12:20 General: Alert, In no apparent distress HEENT: Atraumatic, PERRLA, Mucous membr. moist/pink, EOMI, Sclerae nonicteric Neck: Supple, 2+ carotid pulse no bruit, No LAD, Without JVD or thyroid abnormality Respiratory: Clear to auscultation bilaterally, Normal air movement Cardiovascular: Regular rate/rhythm, Normal S1 S2 Gastrointestinal: Normal bowel sounds, No tenderness Musculoskeletal: No tenderness Integumentary: No rashes Neurological: Normal gait, Normal speech, Normal tone, Normal affect Lymphatics: No axilla or inguinal lymphadenopathy - Problems (1) Sinus tachycardia Current Visit: Yes Status: Acute Plan: stop Toprol XL start Lopressor 75 mg po BID
--- NOTE | 2024-07-27 13:00 | CON ---
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 The patient is currently getting vancomycin and meropenem. His cultures are growing clostridium species in blood and wound abscess is growing Proteus mirabilis from 07/20. Past Medical History: As per HPI. Social History: Nonsmoker. Nondrinker. Family History: Noncontributory. Medications: Vancomycin. Merrem. See MARs for other medications. Allergies: PENICILLIN. Review of Systems: A 10-point review was performed. Physical Examination: General: This is an 89-year-old male, lying in bed, not in any acute cardiopulmonary distress. Vital Signs: Temperature 97, pulse 120, respirations 15, blood pressure 152/66. HEENT: Unremarkable. Neck: Supple. Lungs: Basal crackles. Heart: S1, S2. Regular. Abdomen: Soft, nontender. Bowel sounds present. Extremity: No edema. Wound noted. Laboratory Data: Shows WBC 6.8 down from 14.6, hemoglobin 10.5, platelets are 230. Chemistry shows BUN of 24, creatinine 0.9. Micro data: Blood cultures are growing clostridium species and wound cultures are growing from the right hip, Proteus mirabilis. Assessment And Plan: 89-year-old male with bacteremia and right hip stage IV wound. Continue wound care as per surgical team. Continue vancomycin and Merrem for 6 weeks. Consider long-term acute care for hyperbaric treatment and pain management. We will follow the patient closely. Thank you for consult. SOHAIL/ROBERT Voice ID: [id number] Report ID: [id number] NOREEN
[2024-07-27] MEDS: METOPROLOL TAR 50 MG TAB PO SCH (17:17)
--- NOTE | 2024-07-27 20:24 | P.PN ---
Date of Service: 07/27/24 Subjective: Appears more comfortable conversing well, tolerating TPN oral intake continues to be low 10 point ROS as noted above, otherwise negative Physical exam GEN: AAO x 3, NAD, uncomfortable HEENT: Normal conjunctiva, sclera anicteric Neck: supple, trachea midline, no JVD CV: Tachycardia, no edema, Peripheral pulses normal Pulm: Clear breath sounds bilaterally, symmetrical chest wall movement, on 1 LNC ABD: Soft on palpation, ND/NT, normal active bowel sounds, suprapubic catheter in place MSK: No joint tenderness, Bedbound, Right hip dressing CDI Integumentary: Large right gluteal pressure ulcer s/p debridement, dressing intact. 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 Peñaloza on 07/21. Findings: 15cm x 10cm down to femur / trocanter -No definitive signs of osteomyelitis noted on CT -Blood cultures 07/20: no growth to date -Superficial wound culture 07/20 growing Proteus mirabilis; resistant to bactrim, ciprofloxacin. -Abscess culture 07/21 obtained during debridement: Proteus mirabilis -Continue meropenem and vancomycin -Blood cultures 07/23: Gram positive Rods to one vial -Dr. Duran consulted for exterminator antibiotics Anemia Severe Malnutrition Hypoalbuminemia/hypoprealbumin -Two units PRBC 07/25 -H/H .9 -Albumin 1.7/prealbumin 8.2 -TPN until PO intake has improved Tachycardia Hypophosphatemia -Consult cardiology -recommends change metoprolol to lopressor 75 mg BID -continuous telemetry -phos 1.0 -protocol in place Adynamic Ileus Nausea, Vomiting -Nausea and vomiting began on 07/22 -KUB 07/22: Moderate diffuse adynamic ileus is present. -NGT placed 07/23. Low intermittent suction. -KUB 07/24: Wgnn-aq-fjbojhua diffuse ileus pattern is seen, mildly improved since yesterday's study -NPO, with small amt sips of water -continue IV fluids -nurse reports BM overnight Elevated lactate -2.1 -> 2.7 ->1.7. Improved with IV fluids -Lactic acid on 07/23 of 4.1. Received fluid bolus. repeat lactic acid 2. -Lactic acid on 07/25 2.3, repeat 1.6 -Continue IVF Mild dysphagia -Reported by nursing staff with morning medications 07/22 -Aspiration precautions -NGT in place Diabetes mellitus type [id number] -hyperglycemia, serum glucose 233 -Accucheck with SSI, Kiki added -Does not appear to be on any medications at the senior care for his diabetes CKD 3 -monitor daily chemistry -Improved with IV fluids -BUN/creatinine 24/0.91, GFR 81 Hypertension, currently hypotensive Hyperlipidemia - Continue home statin - lopressor 75 mg BID DVT PPX: lovenox Code status: Full Discharge Plan: [facility] Plan to discharge in: Greater than 2 days
[2024-07-28 06:35] LABS: Absolute Basophils 0.1 K/uL (0-0.5); Absolute Eosinophils 0.3 K/uL (0-0.5); Absolute Monocytes 0.9 K/uL (0.1-1.3); Absolute Neutrophil 5.2 K/uL (1.8-8.0); Basophils % 0.7 % (0-1.3); Eosinophils % 3.9 % (0-4.4); Hematocrit 32.4 % (39.6-49.0); Hemoglobin 10.6 g/dL (13.6-17.9); Lymphocytes % 13.9 % (15.3-44.8); MCH 30.3 pg (27.0-35.0); MCHC 32.8 g/dL (32.0-36.0); MCV 92.3 fL (80-100); MPV 8.1 fL (7.6-11.3); Monocytes % 12.2 % (3.3-12.3); Neutrophils % 69.3 % (41.7-73.7); Nucleated Red Blood Cells % 0.1 % (0-0); Platelets 234 thou/uL (152-406); RBC Red Blood Cell Count 3.51 M/uL (4.33-5.43); Red Cell Distribution Width 15.2 % (12.1-15.2)
[2024-07-28 06:52] LABS: Anion Gap 9.4 mEq/L (5.0-15.0); Magnesium 1.8 mg/dL (1.6-2.4); Potassium 3.4 mEq/L (3.5-5.1)
[2024-07-28] MEDS ORDERED: POTASSIUM CL SA 10 MEQ TAB PO ONE (09:00)
[2024-07-28] MEDS: MAGNESIUM SULFATE 1 gm IVPB 1 GM/100 ML BAG IV ONE (09:03)
[2024-07-28] MEDS: POTASSIUM PHOS 30 MM in NS 500 ML IV SCH (09:55)
--- NOTE | 2024-07-28 10:22 | P.PN ---
Subjective Date of Service: 07/28/24 Chief Complaint: Gluteal pressure ulcer Subjective: No new changes, No C/O voiced, Tolerating diet, Ambulating, Improving Review of Systems 10-point ROS is otherwise unremarkable Physical Examination - Vital Signs Temperature: 97.2 F Blood Pressure: 127/71 Pulse: 114 Respirations: 13 Pulse Ox (%): 96 - Physical Exam General: Alert, In no apparent distress HEENT: Atraumatic, PERRLA, EOMI Neck: Supple, JVD not distended Respiratory: Clear to auscultation bilaterally, Normal air movement Cardiovascular: Regular rate/rhythm, Normal S1 S2 Gastrointestinal: Normal bowel sounds, No tenderness Musculoskeletal: No tenderness Integumentary: No rashes Neurological: Normal speech, Normal tone, Normal affect Lymphatics: No axilla or inguinal lymphadenopathy - Studies Medications List Reviewed: Yes Assessment And Plan - Current Problems (Diagnosis) (1) Sinus tachycardia Current Visit: Yes Status: Acute Plan: stop Toprol XL start Lopressor 75 mg po BID, can uptitrate to 100 mg po BID
[2024-07-28] MEDS: VANCOMYCIN 1.25 GM in NA CHLORIDE 0.9% 250 ML IVPB SCH (11:00)
--- NOTE | 2024-07-28 14:35 | CON ---
Date of Consultation: 07/28/2024 Reason For Consultation: Ileus and protein-calorie malnutrition. History Of Present Illness: The patient is an -jwyr-dcb white male with history of diabete s, hypertension, gastroesophageal reflux disease, presented to hospital with stage IV decubitus ulcer that has been debrided on this admission. The patient developed adynamic ileus, which has been reso lving. NG tube to low intermittent wall suction was removed yesterday. The patient tolerated. No f urther nausea and vomiting early this morning. The patient had decreased p.o. intake with protein-ca ascencion malnutrition. Albumin of 1.7. I was asked to see the patient to further evaluate this adynami c ileus, but appears to be improving. Past Medical History: Significant for diabetes, hypertension, gastroesophageal reflux disease, possi ble irritable bowel syndrome with alternating constipation and diarrhea, urinary retention with supra pubic catheter in place, chronic kidney disease stage 3, hyperlipidemia. Past Surgical History: Includes suprapubic catheter placement, knee surgery, and back surgery. Allergies: PENICILLIN. Medications: Home medicines include Tylenol, Ultram, Eliquis, Lipitor, Questran, fexofenadine, Celex a, Senokot, Fleet enemas, Ensure, Pepcid, gabapentin, insulin, lidocaine, Imodium, Medihoney, Megace, melatonin, methenamine, metoprolol, Singulair, multivitamin, nystatin powder, Zofran, Protonix, Klor -Con, Phenergan syrup, Mylicon, Vicks VapoRub. Social History: He lives at [facility]. No tobacco, alcohol. Family History: Father of leukemia. Mother of congestive heart failure. Review of Systems: The patient has right wound with pain; nausea/vomiting, which has improved. No melena, he matochezia, hematemesis, coffee-ground emesis, hematuria, dysuria, polydipsia , backaches, d epression, anxiety. Physical Examination: Vital Signs: The patient is 5 feet 7 inches, 203 pounds. BMI of 31.8 kg/square m. Temperature 97.9 degrees Fahrenheit, pulse 109 to 114, respirations 18, blood pressure 113/59, O2 saturation 98% on r oom air. HEENT: Normocephalic, atraumatic. Anicteric. Pupils equal, round, and reactive to light. Extraocu lar movements are intact. Oropharynx clear. Neck: Supple. No masses. Respirations: Clear to auscultation bilaterally. Cardiac: Tachycardic. No gallops or rubs. Abdomen: Positive bowel sounds. Soft, nontender, nondistended. No hepatosplenomegaly. Extremities: Laboratory Data: White count 7.5, hemoglobin 10.6, hematocrit 32.4, MCV 92, platelet count 234, poly s of 59%. PT 15.7, INR potassium 3.5, chloride 110, bicarb 25, BUN is 24, creatinine of 0 .9, glucose 242. Calcium 7.9, magnesium 1.7. UA showed extremely turbid, trace leukocyte esterase, ketones trace, blood large deep right-sided lateral soft tissue ulceration. This appears to extend to the level of the greater trochanter on the right proximal femur. Definite osteomyelitis findings are not seen at this time. Impression: 1.Ileus, improving. Nasogastric tube removed. No nausea and vomiting this morning. We will try to increase possibility of p.o. intake in this patient. 2.Protein-calorie malnutrition. Albumin 1.7. Prealbumin 8.2. On total parenteral nutrition. 3.Right hip stage IV decubitus ulcer. Recommendations: 1.Continue IV fluids, IV antibiotics. Continue TPN. 2.Check KUB. 3.Attempt clear liquids/full liquids as tolerated in this patient with improving ileus. WS/MODL Voice ID: [id number] Report ID: [id number]
--- NOTE | 2024-07-28 18:52 | P.PN ---
Date of Service: 07/28/24 Subjective: Sleeping comfortably No new complaints 10 point ROS as noted above, otherwise negative Physical exam GEN: AAO x 3, Comfortable, NAD, HEENT: Normal conjunctiva, sclera anicteric Neck: supple, trachea midline, no JVD CV: NSR, no edema, Peripheral pulses normal Pulm: Bilaterally clear breath sounds, symmetrical chest wall movement, on RA ABD: Soft and benign on palpation, normal active bowel sounds, ND/NT, suprapubic catheter in place MSK: No joint tenderness, Bedbound, Right hip dressing CDI Integumentary: Large right gluteal pressure ulcer s/p debridement, dressing intact. 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 Peñaloza on 07/21. Findings: 15cm x 10cm down to femur / trocanter -No definitive signs of osteomyelitis noted on CT -Blood cultures 07/20: no growth to date -Superficial wound culture 07/20 growing Proteus mirabilis; resistant to bactrim, ciprofloxacin. -Abscess culture 07/21 obtained during debridement: Proteus mirabilis -Continue meropenem and vancomycin -Blood cultures 07/23: Clostridium species -Dr. Duran consulted for [facility] antibiotics Anemia Severe Malnutrition Hypoalbuminemia/hypoprealbumin -Two units PRBC 07/25 -H/H 10.6/32.4 -Albumin 1.7/prealbumin 8.2 -TPN stopped, encourage PO intake Tachycardia Hypophosphatemia -Consult cardiology -recommends change metoprolol to lopressor 75 mg BID -continuous telemetry -phos 1.0 -protocol in place Adynamic Ileus Nausea, Vomiting -Nausea and vomiting began on 07/22 -KUB 07/22: Moderate diffuse adynamic ileus is present. -NGT placed 07/23. Low intermittent suction. -KUB 07/24: Xpdo-yq-vvstlicd diffuse ileus pattern is seen, mildly improved since yesterday's study -NPO, with small amt sips of water -continue IV fluids -nurse reports BM overnight 07/27 Elevated lactate-resolved -2.1 -> 2.7 ->1.7. Improved with IV fluids -Lactic acid on 07/23 of 4.1. Received fluid bolus. repeat lactic acid 2. -Lactic acid on 07/25 2.3, repeat 1.6 -Continue IVF Mild dysphagia -Reported by nursing staff with morning medications 07/22 -Aspiration precautions -NGT in place Diabetes mellitus type [id number] -hyperglycemia, serum glucose 228 -Accucheck with SSI, Kiki added -Does not appear to be on any medications at the shelter for his diabetes CKD 3 -monitor daily chemistry -Improved with IV fluids -BUN/creatinine 30/0.82, GFR 82 Hypertension, currently hypotensive Hyperlipidemia - Continue home statin - lopressor 100 mg BID, per cardiology DVT PPX: lovenox Code status: Full Discharge Plan: Skilled Nursing Plan to discharge in: Greater than 2 days
[2024-07-28] MEDS: METOPROLOL TAR 50 MG TAB PO SCH (21:23)
--- NOTE | 2024-07-28 21:28 | RAD REPORT ---
EXAM DESCRIPTION: RAD - Abdomen 1 View (KUB) - 07/28/2024 5:14 pm CLINICAL HISTORY: Ileus COMPARISON: Abdomen 1 View (KUB) dated 07/24/2024; Abdomen 1 View (KUB) dated 07/23/2024; Abdomen 1 Vie w (KUB) dated 07/23/2024; Abdomen 1 View (KUB) dated 07/23/2024; Chest Single View dated 07/24/2024 TECHNIQUE: Single AP view of the abdomen. FINDINGS: Nonobstructive bowel gas pattern, with interval improvement of the prior findings. No air- fluid levels, free air, or pneumatosis. No suspicious calcifications. Suspected central interstitial prominence. No significant bony abnormality. Sequelae of prior vertebral augmentation and lumbosacral fusion agai n seen. IMPRESSION: Interval improvement as above.
[2024-07-29 05:02] LABS: Absolute Eosinophils 0.3 K/uL (0-0.5); Absolute Lymphocytes (CBC) 1.3 K/uL (0.7-4.9); Absolute Neutrophil 3.1 K/uL (1.8-8.0); Basophils % 0.8 % (0-1.3); Eosinophils % 4.9 % (0-4.4); Hematocrit 27.8 % (39.6-49.0); Hemoglobin 9.1 g/dL (13.6-17.9); Lymphocytes % 22.7 % (15.3-44.8); MCH 30.3 pg (27.0-35.0); MCHC 32.8 g/dL (32.0-36.0); MCV 92.5 fL (80-100); MPV 7.9 fL (7.6-11.3); Nucleated Red Blood Cells % 0.1 % (0-0); Platelets 178 thou/uL (152-406); Red Cell Distribution Width 15.2 % (12.1-15.2)
[2024-07-29 05:12] LABS: Neutrophils % 54.6 % (41.7-73.7)
[2024-07-29 05:22] LABS: Anion Gap 7.6 mEq/L (5.0-15.0); Magnesium 1.8 mg/dL (1.6-2.4); Potassium 3.6 mEq/L (3.5-5.1)
--- NOTE | 2024-07-29 08:23 | P.DS ---
Admission Date: 07/20/24 Discharge Date: 07/29/24 Disposition: TRANSFER TO [facility] Discharge Condition: GOOD Reason for Admission: Gluteal pressure ulcer Brief History of Present Illness: Diagnosis Right hip necrotic pressure ulcer with necrosis s/p debridement 07/21 suspected osteomyelitis Anemia Severe Malnutrition Hypoalbuminemia/hypoprealbumin Adynamic Ileus Mild dysphagia Nausea and vomiting Elevated lactate Diabetes mellitus type [id number]-tttnudjly CKD 3 Hypertension Hyperlipidemia HPI 07/20/2024 Hugo Medley is a 88-year-old male with history of hypertension, urinary tension with suprapubic catheter in place, diabetes mellitus type [id number]-otvdeaebr, GERD, hyperlipidemia, CKD 3 who is a resident of [facility] presents to the emergency department chief complaint of right gluteal pressure wound. Patient is alert and oriented reports has had the wound for about 10 weeks, he lost his mobility while staying at an assisted living facility and was transition to [facility]. He reports the wound has continued to get worse despite attempts at wound care there and is now foul-smelling, physician at their facility was concern for worsening pressure ulcer and for that reason he was referred to the emergency department. Patient was evaluated here in the emergency department his labs are significant for a white blood cell count of 10.9 hemoglobin 9.8 creatinine 1.6 bicarb 28 lactic acid 2.1 initially, repeat pending CT abdomen pelvis without contrast was obtained which revealed a large deep right sided lateral soft tissue ulceration which appears to extend to the level of the greater trochanter on the right proximal femur. Definitive osteomyelitis findings are not seen at this time. ED prior wishes to admit patient for further evaluation management of this large right gluteal pressure ulcer. Hospital Course: Hugo Medley is a pleasant 89-year-old male with a past medical history significant for hypertension, urinary tension with suprapubic catheter in place, diabetes mellitus type [id number], GERD, hyperlipidemia, CKD 3 who was admitted to the [facility] on 07/20/2024 for right gluteal pressure wound. Hugo presented to the ED with chief complaint of right gluteal pressure wound. CT abdomen pelvis with contrast was obtained which revealed a large deep right sided lateral soft tissue ulceration which appears to extend to the level of the greater trochanter on the right proximal femur, definitive osteomyelitis findings are not seen. Dr. Peñaloza was consulted and surgery performed on 07/22/2024. During this admission it was discovered that he had an adynmic ileus and started vomiting. An NGT was placed. on 07/24 he was transferred to the ICU with sepsis vs bowel reperfusion. Lactic, RR, HR, and WBC elevated. Antibiotics were escalated. Small bowel movement returned and NGT was clamped the following day. He showed great improvement, PO intake slowly improved and consecutive BMs were noted. He will be discharged to [facility] with wound care instructions, IV antibiotics, and follow up appointments with Dr. Peñaloza and PCP. On 07/29/2024, Hugo was seen on morning rounds and deemed medically stable for discharge. Hugo was discharged with instructions to schedule follow-up appointments with Dr. Peñaloza and PCP. Physical exam GEN: Awake, Alert and oriented x 3, Comfortable, NAD, HEENT: Normal conjunctiva, sclera anicteric Neck: supple, trachea midline, no JVD CV: Regular rate and rhythm, S1 S2 present, no edema Pulm: Bilaterally clear breath sounds, symmetrical chest wall movement, on RA ABD: Soft and benign on palpation, normal active bowel sounds, ND/NT, suprapubic catheter in place MSK: No joint tenderness, Bedbound, Right hip dressing CDI, 2+ peripheral pulses Integumentary: Large right gluteal pressure ulcer s/p debridement, dressing intact. Vital Signs/Physical Exam: Temp Pulse Resp BP Pulse Ox 96.5 F L 69 18 96/53 L 99 07/29/24 04:00 07/29/24 04:00 07/29/24 07:59 07/29/24 04:00 07/29/24 07:59 Laboratory Data at Discharge: WBC 5.60 thou/uL (4.3-10.9) 07/29/24 04:50 Hgb 9.1 g/dL (13.6-17.9) L D 07/29/24 04:50 Hct 27.8 % (39.6-49.0) L 07/29/24 04:50 Plt Count 178 thou/uL (152-406) 07/29/24 04:50 PT 15.7 SECONDS (9.4-12.5) H 07/20/24 15:00 INR 1.42 07/20/24 15:00 APTT 31.7 SECONDS (24.3-36.9) 07/20/24 15:00 Sodium 140 mEq/L (136-145) 07/29/24 04:50 Potassium 3.6 mEq/L (3.5-5.1) 07/29/24 04:50 BUN 33 mg/dL (7-18) H 07/29/24 04:50 Creatinine 0.93 mg/dL (0.70-1.30) 07/29/24 04:50 Glucose 99 mg/dL (74-106) 07/29/24 04:50 Phosphorus Cancelled 07/29/24 06:08 Magnesium 1.8 mg/dL (1.6-2.4) 07/29/24 04:50 Total Bilirubin 0.3 mg/dL (0.2-1.0) 07/25/24 04:55 AST 32 U/L (15-37) 07/25/24 04:55 ALT 24 U/L (16-61) 07/25/24 04:55 Alkaline Phosphatase 82 U/L (45-117) 07/25/24 04:55 Lipase 8 U/L (13-75) L 07/25/24 04:55 Home Medications: Alendronate Sodium 70 mg PO EVERY 7TH DAY 06/30/22 Acetaminophen [Tylenol] 2 tab PO Q6HP PRN 05/13/24 Fexofenadine HCl 180 mg PO DAILY 05/13/24 Tramadol HCl [Ultram] 50 mg PO BID 05/13/24 Atorvastatin Calcium [Lipitor*] 20 mg PO BEDTIME tab 05/25/24 Cholestyramine/Asp [Questran Light*] 4 gm PO BEDTIME packet 05/25/24 Citalopram [Celexa*] 20 mg PO DAILY 05/25/24 Famotidine [Pepcid*] 20 mg PO BEDTIME tab 05/25/24 Melatonin [Melatonin*] 3 mg PO BEDTIME PRN PRN 05/25/24 Methenamine 0.5 tab PO BID 05/25/24 Montelukast [Singulair*] 10 mg PO DAILY tab 05/25/24 Multivit,Ther Iron,Ca,FA & Min [Centrum Tablet*] 1 tab PO DAILY tab 05/25/24 Furosemide 20 mg PO BID 07/20/24 Loperamide [Imodium*] 2 mg PO Q12HR PRN 07/20/24 Mirtazapine 7.5 mg PO SEECOM 07/20/24 Omeprazole 20 mg PO DAILY 07/20/24 Ondansetron [Zofran (Odt)*] 4 mg PO Q8HR PRN 07/20/24 Promethazine/Dextrometh Syr [Phenergan Dm Oral Syrup*] 5 ml PO Q4HR PRN 07/20/24 Simethicone [Mylicon*] 2 tab PO Q6HP PRN 07/20/24 Vicks Vaporub Ointment 1 leander TOP DAILY PRN 07/20/24 Ensure High Protein 237 ml PO BID can 07/29/24 Cale [Cale*] 1 pkt PO BID 07/29/24 Lidocaine 4% Patch [Lidoderm 5% Patch*] 1 patch TOP DAILY pat 07/29/24 Metoprolol Tartrate [Lopressor*] 100 mg PO BID tab 07/29/24 Polyethyl Gly 3350 [Glycolax*] 17 gm PO DAILY udbot 07/29/24 Physician Discharge Instructions: 1. Please call and schedule a follow-up appointment with your PCP in 3-5 days - Please follow-up with your PCP for medication refills/adjustments 2. Please call and schedule a follow-up appointment with Dr. Peñaloza at his clinic in one week 3. Continue soft bite sized diet, aspiration precautions 4. activity restrictions fall risk 5. Return to the ED if symptoms worsen New medications Vancomiycin 1.25g IV via PICC line every 36 hours Meropenem 1 g IV via PICC line every 8 hours Please fluch PICC line with 10 ml normal saline before and afer antibiotic admin istration. Please remove PICC line after antibiotic administration. Antibiotic end date: Continue daily dressing changes with Adaptic Santyl, Vashe damp to dry, pressure reduction strategies with no pressure on this right hip area. Right hip pending white sponge only with wound vac: 100 mm continuous and change the white sponge only everyother day (no other sponge to be use with the wound vac) Diet: soft bite Activity: Non-weight bearing (to RIGHT Hip) Followup: Fabiano Peñaloza MD [ACTIVE - CAN ADMIT] - 1 Week Riri Mendosa MD [Primary Care Provider] - 1-2 Weeks
[2024-07-29 08:57] VITALS: O2SAT 91
[2024-07-29] MEDS: POTASSIUM CL SA 10 MEQ TAB PO ONE (10:31)
[2024-07-29] MEDS: MAGNESIUM SULFATE 1 gm IVPB 1 GM/100 ML BAG IV ONE (10:33)
[2024-07-29 12:42] VITALS: BP 115/62; TEMP 97.8
--- NOTE | 2024-08-08 13:10 | EKG ---
Test Date: 2024-07-26 Test Time: 09:44:39 Facility Designer: ACNDELARIO MEASUREMENT RESULTS: Intervals: Rate: 89 [place]: 204 QRSD: 96 QT: 412 QTc: 501 [place]: P: 52 [place]: 204 QRS: 13 T: 64 INTERPRETIVE STATEMENTS: Sinus rhythm with frequent premature ventricular complexes Anterior infarct, age undetermined Prolonged QT Abnormal ECG Compared to ECG 07/20/2024 16:35:27 Ventricular premature complex(es) now present Myocardial infarct finding now present Accelerated junctional rhythm no longer present Left ventricular hypertrophy no longer present ST (T wave) deviation no longer present Electronically Signed On 08-08-24 12:53:58 CDT by Heber Miller
== END 2024-07-29 12:12 | DRG 264 ==
LOC: ER 14:23 → ERHOLD 17:16 → 2ND 18:09 → 3RD-ICU 07-23 18:21 → 4TH 07-26 18:18
PROVIDERS: ADMIT Hospitalist; ATTEND Internal Medicine
PROC: 0JBL0ZZ Excision of Right Upper Leg Subcutaneous Tissue and Fascia, Open Approach (ICD-10-PCS; principal; 2024-07-21 16:45)
PROC: 0DH67UZ Insertion of Feeding Device into Stomach, Via Natural or Artificial Opening (ICD-10-PCS; 2024-07-22)
PROC: 30233N1 Transfusion of Nonautologous Red Blood Cells into Peripheral Vein, Percutaneous Approach (ICD-10-PCS; 2024-07-24)
PROC: 02HV33Z Insertion of Infusion Device into Superior Vena Cava, Percutaneous Approach (ICD-10-PCS; 2024-07-24)
PROC: 3E0436Z Introduction of Nutritional Substance into Central Vein, Percutaneous Approach (ICD-10-PCS; 2024-07-24)
DX: E11.52 Type 2 diabetes mellitus with diabetic peripheral angiopathy with gangrene (principal); L89.214 Pressure ulcer of right hip, stage 4; A48.0 Gas gangrene; E43 Unspecified severe protein-calorie malnutrition; A41.9 Sepsis, unspecified organism; K56.0 Paralytic ileus; L02.415 Cutaneous abscess of right lower limb; M86.18 Other acute osteomyelitis, other site; Z16.29 Resistance to other single specified antibiotic; E11.69 Type 2 diabetes mellitus with other specified complication; E78.00 Pure hypercholesterolemia, unspecified; I12.9 Hypertensive chronic kidney disease with stage 1 through stage 4 chronic kidney disease, or unspecified chronic kidney disease; N18.30 Chronic kidney disease, stage 3 unspecified; E11.22 Type 2 diabetes mellitus with diabetic chronic kidney disease; D63.1 Anemia in chronic kidney disease; E86.0 Dehydration; K59.00 Constipation, unspecified; K21.9 Gastro-esophageal reflux disease without esophagitis; M81.0 Age-related osteoporosis without current pathological fracture; E88.09 Other disorders of plasma-protein metabolism, not elsewhere classified; B96.4 Proteus (mirabilis) (morganii) as the cause of diseases classified elsewhere; R13.10 Dysphagia, unspecified; R00.0 Tachycardia, unspecified; Z88.0 Allergy status to penicillin; Z88.5 Allergy status to narcotic agent; Z79.4 Long term (current) use of insulin; Z74.01 Bed confinement status; Z79.01 Long term (current) use of anticoagulants; Z79.899 Other long term (current) drug therapy; Z68.38 Body mass index [BMI] 38.0-38.9, adult
CPT/HCPCS: 36415; 36430; 36569; 71045; 74018; 74176; 80048; 80053; 80202; 81001; 82947; 83605; 83690; 83735; 84100; 84132; 84134; 85014; 85018; 85025; 85027; 85610; 85730; 86140; 86850; 86900; 86901; 86920; 87040; 87070; 87075; 87077; 87186; 87205; 88304; 92526; 92610; 93005; 94010; 99285; J1650; J2001; J2185; J2270; J2371; J2405; J2470; J2550; J2704; J3010; J3475; J3480; J3590; J7030; J7040; J7050; P9016; P9047